=== PATIENT | female | born 1930 | race Caucasian/White ===

== ENCOUNTER 2016-08-06 09:53 | Inpatient (IN) | payer OTHER, MEDICARE ==
--- NOTE | 2016-08-06 09:58 | PDOC ---
History of Present Illness <NicolasaPerico - Last Filed: 08/06/16 12:43> - General History Source: Family Exam Limitations: Dementia - History of Present Illness Initial Comments: 08/06/16 10:31 The patient 86-year-old female living at home, with a significant past medical history of afib, peptic ulcer, gastritis, HTN, dementia, and seizures, who presents to the ED for agitation and increased violence towards her aide for the past three days. As per son, the patient has been really aggressive in the past few days. He has noted that her aggressiveness seems to worsen in the afternoon, but he reports that the patient woke up this morning and began to scream and slam doors threateninng to call the police. He reports that the patient recently visited her Neurologist who prescribd the patient depakote. He is in the process of placing his mother in the [facility]. He also reports that the patient has been experiencing mild diarrhea. Patient has two aides, one that visits her in the morning and one that watches her at night. Aide states that the patient is more agitated towards the second aide who visits her in the evening. She often complains that she does not want to live in her apartment because it is boring. Pt visits her family over the weekend and seems much more happier being around family than being at home. Pt's aide states that she has shown increased agitation for the past month. Pt usually has full control of her bowels. Aide states that she has noted that the pt has been urinating more than usual and her urine has a foul smell. The patient denies any fever, chills, nausea, vomiting, or abdominal pain. The patient denies any shortness of breath or chest pain. PCP: Dr. Juan Patten <Yin Parsons - Last Filed: 08/06/16 12:58> - General Stated Complaint: Altered Mental Status Time Seen by Provider: 08/06/16 09:56 Past History - Past Medical History Cardiac Disorders: Yes (A FIB) CVA: (TIA) GI Disorders: Yes (PEPTIC ULCER) HTN: Yes Hypercholesterolemia: Yes Psychiatric Problems: Yes (dementia) Seizures: Yes Thyroid Disease: Yes - Surgical History Cholecystectomy: Yes - Immunization History Immunization Up to Date: Yes - Psycho/Social/Smoking Cessation Hx Anxiety: No Suicidal Ideation: No Smoking Status: No Smoking History: Former smoker Have you smoked in the past 12 months: No Number of Cigarettes Smoked Daily: 0 If you are a former smoker, when did you quit?: 1975 Hx Alcohol Use: No Drug/Substance Use Hx: No Substance Use Type: None Hx Substance Use Treatment: No <NicolasaPerico - Last Filed: 08/06/16 12:43> <Yin Parsons - Last Filed: 08/06/16 12:58> - Past Medical History Allergies/Adverse Reactions: Allergies Allergy/AdvReac Type Severity Reaction Status Date / Time No Known Allergies Allergy Verified 08/06/16 09:55 Home Medications: Ambulatory Orders Amlodipine Besylate [Norvasc -] 10 mg PO DAILY 08/06/16 Apixaban [Eliquis] 2.5 mg PO BID 08/06/16 Atorvastatin Ca [Lipitor] 40 mg PO HS 08/06/16 Calcium Carb & Citrate/Vit D3 [Calcium + D3 ER Tablet] 1 each PO DAILY 08/06/16 Citalopram Hydrobromide [Celexa -] 40 mg PO DAILY 08/06/16 Divalproex Sodium [Depakote] 250 mg PO DAILY 08/06/16 Folic Acid 1 mg PO DAILY 08/06/16 Isosorbide Mononitrate [Imdur -] 30 mg PO DAILY 08/06/16 Levetiracetam 750 mg PO BID 08/06/16 Memantine HCl [Namenda Xr] 28 mg PO DAILY 08/06/16 Metoprolol Tartrate 50 mg PO DAILY 08/06/16 Pantoprazole Sodium 40 mg PO DAILY 08/06/16 Quetiapine Fumarate [Quetiapine Fumarate ER] 50 mg PO BID 08/06/16 Ramipril 10 mg PO DAILY 08/06/16 Rivastigmine Tartrate [Rivastigmine] 4.5 mg PO BID 08/06/16 Review of Systems - Review of Systems Able to Perform ROS?: Yes Comments:: 08/06/16 10:31 CONSTITUTIONAL: No reported: Fever, Chills, Diaphoresis, Generalized Weakness, Malaise, Loss of Appetite HEENT: No reported: Rhinorrhea, Nasal Congestion, Throat Pain, Throat Swelling, Difficulty Swallowing, Mouth Swelling, Ear Pain, Eye Pain, Visual Changes CARDIOVASCULAR: No reported: Chest Pain, Syncope, Palpitations, Irregular Heart Rate, Lightheadedness, Peripheral Edema RESPIRATORY: No reported: Cough, Shortness of Breath, SOB with Exertion, Orthopnea, Wheezing , Stridor, Hemoptysis GASTROINTESTINAL: Reported: Diarrhea No reported: Abdominal pain, Abdominal Distension, Nausea, Vomiting, Constipation, Melena, Hematochezia GENITOURINARY: No reported: Dysuria, Frequency, Urgency, Hesitancy, Flank Pain, Genital Pain MUSCULOSKELETAL: No reported: Myalgia, Arthralgia, Joint Swelling, Back pain, Neck Pain SKIN: No reported: Rash, Itching, Pallor HEMEATOLOGIC/IMMUNOLOGIC: No reported: Easy Bleeding, Easy Bruising, Lymphadenopathy, Frequent infections ENDOCRINE: No reported: Unexplained Weight Gain, Unexplained Weight Loss, Heat Intolerance , Cold Intolerance NEUROLOGIC: Reported: Mental Status Changes No reported: Headache, Focal Weakness, Paresthesias, Vertigo, Lightheadedness, Unsteady Gait, Seizure, Incontinence PSYCHIATRIC: No reported: Anxiety, Depression <Yin Parsons - Last Filed: 08/06/16 12:58> *Physical Exam - Vital Signs Last Vital Signs Temp Pulse Resp BP Pulse Ox 98.3 F 63 18 136/73 96 08/06/16 09:55 08/06/16 09:55 08/06/16 09:55 08/06/16 09:55 08/06/16 09:55 - Physical Exam Comments: 08/06/16 10:32 GENERAL: The patient is awake, alert, and oriented x 2, Nontoxic - in no acute distress. HEAD: Normocephalic, atraumatic. EYES: extraocular movements intact, sclera anicteric, conjunctiva clear. ENT: Normal voice, Moist mucous membranes. NECK: Normal range of motion, supple LUNGS: Breath sounds equal, clear to auscultation bilaterally. No wheezes, no rhonchi, no rales. HEART: Regular rate and rhythm, without murmur, rub or gallop. ABDOMEN: Soft, nontender, normoactive bowel sounds. No guarding, no rebound.No CVA tenderness EXTREMITIES: Normal range of motion. No clubbing or cyanosis. No cords, erythema, or tenderness. (+)Trace edema in the lower extremities. NEUROLOGICAL: No facial assymetry, Normal speech. moving all 4 extremities spontaneously and symemtrically, normal gait. PSYCH: Normal mood, normal affect. SKIN: Warm, Dry, normal turgor, <Yin Parsons - Last Filed: 08/06/16 12:58> Heart Score/ECG Review - ECG Impressions Comment:: 08/06/16 12:34 Twelve-lead EKG was performed and reviewed by me. There is normal sinus rhythm with a heart rate of 59 Right bundle-branch block Q waves in the inferior lead <Perico Baldwin - Last Filed: 08/06/16 12:43> ED Treatment Course - LABORATORY CBC & Chemistry Diagram: 08/06/16 10:10 08/06/16 10:10 <Perico Baldwin - Last Filed: 08/06/16 12:43> - LABORATORY CBC & Chemistry Diagram: 08/06/16 10:10 08/06/16 10:10 - ADDITIONAL ORDERS Additional order review: 08/06/16 10:10 RBC 4.48 MCV 89.2 MCHC 32.6 RDW 14.3 MPV 9.1 Neutrophils % 69.4 Lymphocytes % 19.2 Monocytes % 7.7 Eosinophils % 3.2 Basophils % 0.5 - RADIOLOGY Radiology Studies Ordered: 08/06/16 12:[address] was reviewed by Dr. Baldwin and over-read by Radiology. Impression: No evidence of acute intracranial hemorrhage, edema, midline shift, mass effect, or skull fracture. No CT evidence of acute territorial infarction. Chest X-Ray was reviewed by Dr. Baldwin and over-read by Radiology. Impression: Large heart. Scoliosis. No acute chest pathology. <Yin Parsons - Last Filed: 08/06/16 12:58> Medical Decision Making - Medical Decision Making 08/06/16 10:16 86y F hx of afib, CVA/TIAs, peptic ulcers, htn, hl, dementia, seizures, thydroid disease presents for evalutaion of behavioral disturbances - pt has been more agitated and violent recently, mostly at night, sometimes striking out at the [employer] home [employer]. The pt denies any complaints currently but history may be limited by her dementia. Her exam is unremarkable. Differential includes but is not limtied to worsening dementia/sundowning, occult infection/uti will ck basic labs to r/o anemia, metabolic dernagement, ua to r/o uti ct head for ams ekg case d/w dr. patten - requests amdission for evaluation of AMS - pt may need NH placement at disposition A portion of this note was documented by scribe services under my direction. I have reviewed the details of the note, within reason, and agree with the documentation with the following case summary and management plan written by me 08/06/16 11:31 labs reviewed and unremarkable US c/w uti awaiitng CT will admit for further mangaement Case discussed in detail with admitting physician including history, physical exam and ancillary studies. Admitting physician has assumed care for the patient, will follow all pending diagnostics and will complete the evaluation and treatment. 08/06/16 12:43 ct negative <Perico Baldwin - Last Filed: 08/06/16 12:43> *DC/Admit/Observation/Transfer - Discharge Dispostion Admit: Yes <Perico Baldwin - Last Filed: 08/06/16 12:43> - Attestations Scribe Attestion: 08/06/16 10:33 Documentation prepared by Yin Parsons, acting as medical investigator for Perico Baldwin MD. <Yin Parsons - Last Filed: 08/06/16 12:58> Diagnosis at time of Disposition: UTI (urinary tract infection) Qualifiers: Urinary tract infection type: site unspecified Hematuria presence: with hematuria Qualified Code(s): N39.0 - Urinary tract infection, site not specified Altered mental status Qualifiers: Altered mental status type: unspecified Qualified Code(s): R41.82 - Altered mental status, unspecified - Referrals
[2016-08-06 10:24] LABS: BASOPHIL 0.5 % (0-2.0); EOSINOPHIL 3.2 % (0-4.5); MCH 29.1 pg (25.7-33.7); MCHC 32.6 g/dl (32.0-36.0); MEAN CELL VOLUME 89.2 fl (80-96); MEAN PLT VOLUME 9.1 fl (7.5-11.1); NEUTROPHILS 69.4 % (42.8-82.8); PLATELET COUNT 228 K/MM3 (134-434); RDW 14.3 % (11.6-15.6); WHITE BLOOD COUNT 8.8 K/mm3 (4.0-10.0)
[2016-08-06 10:54] LABS: ALBUMIN 3.3 g/dl (3.4-5.0); ANION GAP 5 (8-16); BILIRUBIN,TOTAL 0.3 mg/dL (0.2-1.0); CALCIUM 8.7 mg/dL (8.5-10.1); CO2 30 mmol/L (21-32); CREATININE 0.8 mg/dL (0.55-1.02); GLUCOSE,RANDOM 104 mg/dL (74-106); SGOT/AST 20 U/L (15-37); SGPT/ALT 13 U/L (12-78); TOT PROT 6.7 g/dl (6.4-8.2)
[2016-08-06 10:55] LABS: URINE APPEARANCE SLCLOUDY; URINE BILIRUBIN NEGATIVE (NEGATIVE); URINE COLOR YELLOW; URINE GLUCOSE (UA) NEGATIVE (NEGATIVE); URINE KETONE TRACE (NEGATIVE); URINE NITRITE NEGATIVE (NEGATIVE); URINE UROBILINOGEN NEGATIVE E.U./dl (0.2-1.0)
[2016-08-06 10:56] LABS: ALK PHOS 81 U/L (45-117); TROPONIN I < 0.02 ng/ml (0.00-0.05)
[2016-08-06 11:02] LABS: URINE BLOOD 1+ (NEGATIVE); URINE LEUK ESTERASE 3+ (NEGATIVE); URINE PROTEIN 2+ (NEGATIVE)
[2016-08-06 11:06] LABS: URINE BACTERIA RARE /hpf (NONE SEEN); URINE MUCUS RARE; URINE RBC 20 /hpf (0-3); URINE WBC 150 /hpf (3-5); YEAST MODERATE
[2016-08-06] MEDS ORDERED: CEFTRIAXONE 1 GM in DEXTROSE 5%-WATER - 50 ML IVPB ONE (11:29)
[2016-08-06] MEDS ORDERED: CEFTRIAXONE 50 ML ONE (12:45)
--- NOTE | 2016-08-06 16:36 | EKG ---
Test Reason : Blood Pressure : / mmHG Vent. Rate : 059 BPM Atrial Rate : 059 BPM P-R Int : 198 ms QRS Dur : 154 ms QT Int : 454 ms P-R-T Axes : 048 009 018 degrees QTc Int : 449 ms SINUS BRADYCARDIA WITH MARKED SINUS ARRHYTHMIA RIGHT BUNDLE BRANCH BLOCK INFERIOR INFARCT , AGE UNDETERMINED ABNORMAL ECG WHEN COMPARED WITH ECG OF 17-SEP-2015 15:16, INFERIOR INFARCT IS NOW PRESENT QT HAS SHORTENED Confirmed by VICTORIANO KENYON, TATIANA ([id number]) on 08/06/2016 4:36:25 PM Referred By: Confirmed By:TATIANA PASTRANA MD
[2016-08-06 17:54] VITALS: BMI 28.3
[2016-08-06] MEDS ORDERED: INFLUENZA VACCINE 45 MCG/0.5 ML (MDV 16-17) IM ONE (17:54)
[2016-08-06] MEDS ORDERED: PNEUMOC 13-VAL CONJ-DIP CRM/PF 0.5 ML DISP.SYRIN IM ONE (17:54)
--- NOTE | 2016-08-06 18:55 | HP ---
Admitting History and Physical - Admission Chief Complaint: changes in mental status, confusion and aggression History of Present Illness: he patient 86-year-old female living at home, with a significant past medical history of afib, peptic ulcer, gastritis, HTN, dementia, and seizures, who was brought to the ED by pt's son Perfecto for agitation and increased violence towards her aide for the past three days. As per son, the patient has been really aggressive in the past few days. He has noted that her aggressiveness seems to worsen in the afternoon, but he reports that the patient woke up this morning and began to scream and slam doors threateninng to call the police. He reports that the patient recently visited her Neurologist who diagnosed her with dementia and prescribed the patient depakote. He is in the process of placing his mother in the [facility]. He also reports that the patient has been experiencing mild diarrhea. Patient has two aides, one that visits her in the morning and one that watches her at night. Aide states that the patient is more agitated towards the second aide who visits her in the evening. She often complains that she does not want to live in her apartment because it is boring. Pt visits her family over the weekend and seems much more happier being around family than being at home. Pt's aide states that she has shown increased agitation for the past month. Pt usually has full control of her bowels. Aide states that she has noted that the pt has been urinating more than usual and her urine has a foul smell. When pt was asked if anything is bothering her she said no, she denied any c/o and does not know why she is in the ER. She knows her and that this is [facility] but does not remember what she did or ate yesterday or today. The patient denies any fever, chills, nausea, vomiting, or abdominal pain. The patient denies any shortness of breath or chest pain. I d/w pt's son Perfecto at bedside in ER and he said that Pt is from her and he lives in a NH and also has dementia. Pt has 4 children and pt does not have a HCP however Perfecto (the son) has POA. He said he spoke with all his siblings and all are in agreement to place pt in a NH. Pt lives in her apartment but her son and 1 daughter are close and helping her; she also has currently a line-in aid (24H/day 7d/week) per son. 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: Yes: CVA, Dementia Cardiovascular: Yes: AFIB, HTN, Hyperlipdemia Gastrointestinal: Yes: Peptic Ulcer Disease Endocrine: Yes: Hypothyroidism - Past Surgical History Past Surgical History: Yes: Cholecystectomy - Smoking History Smoking history: Former smoker Have you smoked in the past 12 months: No Aproximately how many cigarettes per day: 0 If you are a former smoker, when did you quit?: 1975 - Alcohol/Substance Use Hx Alcohol Use: No History of Substance Use: reports: None - Social History Usual Living Arrangement: Yes: Alone ADL: Support Services History of Recent Travel: No Home Medications - Allergies Allergies/Adverse Reactions: Allergies Allergy/AdvReac Type Severity Reaction Status Date / Time No Known Allergies Allergy Verified 08/06/16 09:55 - Home Medications Home Medications: Ambulatory Orders Amlodipine Besylate [Norvasc -] 10 mg PO DAILY 08/06/16 Apixaban [Eliquis] 2.5 mg PO BID 08/06/16 Atorvastatin Ca [Lipitor] 40 mg PO HS 08/06/16 Calcium Carb, Citrate/Vit D3 [Calcium + D3 ER Tablet] 1 each PO DAILY 08/06/16 Citalopram Hydrobromide [Celexa -] 40 mg PO DAILY 08/06/16 Divalproex Sodium [Depakote] 250 mg PO DAILY 08/06/16 Folic Acid 1 mg PO DAILY 08/06/16 Isosorbide Mononitrate [Imdur -] 30 mg PO DAILY 08/06/16 Levetiracetam 750 mg PO BID 08/06/16 Memantine HCl [Namenda Xr] 28 mg PO DAILY 08/06/16 Metoprolol Tartrate 50 mg PO DAILY 08/06/16 Pantoprazole Sodium 40 mg PO DAILY 08/06/16 Quetiapine Fumarate [Quetiapine Fumarate ER] 50 mg PO BID 08/06/16 Ramipril 10 mg PO DAILY 08/06/16 Rivastigmine Tartrate [Rivastigmine] 4.5 mg PO BID 08/06/16 Family Disease History - Family Disease History Family History: Unremarkable Review of Systems - Review of Systems Constitutional: denies: Chills, Fever, Lethargy Eyes: denies: Blind Spots, Blurred Vision, Double Vision HENT: denies: Ear Pain Neck: denies: Stiffness, Tenderness Cardiovascular: denies: Chest Pain, Shortness of Breath Respiratory: denies: Cough, SOB Gastrointestinal: denies: Abdominal Pain, Bloating, Constipation, Diarrhea, Vomiting Genitourinary: denies: Burning, Discharge, Dysuria, Flank Pain, Frequency Musculoskeletal: denies: Back Pain, Muscle Pain Integumentary: denies: Bruising, Eczema Neurological: reports: Confusion. denies: Change in Speech, Dizziness, Seizure , Syncope, Tremors, Unsteady Gait Endocrine: denies: Flushing Hematology/Lymphatic: denies: Easily Bruised, Excessive Bleeding Psychiatric: denies: Anxiety, Depression Physical Examination Vital Signs: Vital Signs Temperature 98 F 08/06/16 17:39 Pulse Rate 62 08/06/16 17:39 Respiratory Rate 18 08/06/16 17:39 Blood Pressure 154/75 08/06/16 17:39 O2 Sat by Pulse Oximetry (%) 96 08/06/16 18:32 Constitutional: Yes: No Distress, Calm Eyes: Yes: Conjunctiva Clear HENT: Yes: Atraumatic Neck: Yes: Supple Cardiovascular: Yes: Regular Rate and Rhythm Respiratory: Yes: CTA Bilaterally Gastrointestinal: Yes: Soft. No: Distention, Tenderness Renal/: No: CVA Tenderness - Left, CVA Tenderness - Right Musculoskeletal: No: Joint Stiffness, Joint Swelling Extremities: No: Cold, Cool, Cyanosis Edema: No Peripheral Pulses WNL: Yes Integumentary: No: Rash, Venous Stasis Changes Neurological: Yes: WNL, Alert, Confusion. No: Oriented ...Motor Strength: WNL Psychiatric: Yes: WNL, Alert. No: Oriented, Agitated Imaging - Results Chest X-ray: Report Reviewed Other: Report Reviewed Assessment/Plan he patient 86-year-old female living at home, with a significant past medical history of afib, peptic ulcer, gastritis, HTN, dementia, and seizures, who presents to the ED for agitation and increased violence towards her aide for the past three days. Per son pt has changes in mental status, more confused than usual and aggressive behaviour. Found to have UTI in ER admit; IV ATB for UTI check UCX neurology eval head CT d/w pt and son, d/w ER dr osorio, DVT, aspiration PFX will d/w case management, CM and PT eval for eventual NH placement.
[2016-08-06] MEDS ORDERED: PATIENT'S OWN MEDICATION (NON-FORMULARY) (Levetiracetam [Levetiracetam] 750 MG) PO SCH (22:00)
[2016-08-06] MEDS ORDERED: RIVASTIGMINE TARTRATE 4.5 MG PO SCH (22:00)
[2016-08-06] MEDS: APIXABAN 2.5 MG TABLET PO SCH (22:41)
[2016-08-06] MEDS: RIVASTIGMINE TARTRATE 1.5 MG CAPSULE PO SCH (22:42)
[2016-08-06] MEDS: HEPARIN NA (PORCINE) 5,000 UNITS/ML 1ML VIAL SQ SCH (22:43)
[2016-08-06] MEDS: ATORVASTATIN CA 40 MG TABLET (FP) PO SCH (22:44)
[2016-08-06] MEDS: levETIRAcetam 500 MG TABLET (FP) PO SCH (22:44)
[2016-08-07 08:31] LABS: ALK PHOS 76 U/L (45-117); ANION GAP 4 (8-16); BILIRUBIN,TOTAL 0.4 mg/dL (0.2-1.0); CALCIUM 8.5 mg/dL (8.5-10.1); CO2 29 mmol/L (21-32); CREATININE 0.7 mg/dL (0.55-1.02); GLUCOSE,RANDOM 76 mg/dL (74-106); SGOT/AST 16 U/L (15-37); SGPT/ALT 15 U/L (12-78); THYROID STIMULATING HORMONE 3.86 uIU/ml (0.358-3.74); TOT PROT 6.1 g/dl (6.4-8.2)
[2016-08-07 08:42] LABS: BASOPHIL 0.7 % (0-2.0); EOSINOPHIL 4.2 % (0-4.5); MCH 28.8 pg (25.7-33.7); MCHC 32.5 g/dl (32.0-36.0); MEAN CELL VOLUME 88.7 fl (80-96); MEAN PLT VOLUME 9.6 fl (7.5-11.1); NEUTROPHILS 56.4 % (42.8-82.8); PLATELET COUNT 197 K/MM3 (134-434); RDW 14.2 % (11.6-15.6); WHITE BLOOD COUNT 7.7 K/mm3 (4.0-10.0)
[2016-08-07] MEDS ORDERED: CALCIUM 1200 MG PO SCH (10:00)
[2016-08-07] MEDS ORDERED: PATIENT'S OWN MEDICATION (NON-FORMULARY) (Ramipril [Ramipril] 10 MG) PO SCH (10:00)
[2016-08-07] MEDS ORDERED: PATIENT'S OWN MEDICATION (NON-FORMULARY) (Citalopram Hydrobromide [Celexa -] 40 MG) PO SCH (10:00)
[2016-08-07] MEDS ORDERED: VIT D PO SCH (10:00)
[2016-08-07] MEDS ORDERED: PT OWN MED DRAWER 7, Y5N ONE ×2 (10:39→21:18)
[2016-08-07] MEDS: levETIRAcetam 500 MG TABLET (FP) PO SCH ×2 (10:41→21:44)
[2016-08-07] MEDS: amLODIPine BESYLATE 10 MG TABLET (FP) PO SCH (10:43)
[2016-08-07] MEDS: METOPROLOL TARTRATE 50 MG TABLET (FP) PO SCH (10:43)
[2016-08-07] MEDS: RAMIPRIL 5 MG CAPSULE (FP) PO SCH (10:43)
[2016-08-07] MEDS: PANTOPRAZOLE 40 MG TABLET (FP) PO SCH (10:43)
[2016-08-07] MEDS: FOLIC ACID 1 MG TABLET (FP) PO SCH (10:44)
[2016-08-07] MEDS: HEPARIN NA (PORCINE) 5,000 UNITS/ML 1ML VIAL SQ SCH ×2 (10:44→21:51)
[2016-08-07] MEDS: ISOSORBIDE MONONITRATE 30 MG TAB.SR.24H (FP) PO SCH (10:44)
[2016-08-07] MEDS: CITALOPRAM HYDROBROMIDE 20 MG TABLET (FP) PO SCH (10:44)
[2016-08-07] MEDS: RIVASTIGMINE TARTRATE 1.5 MG CAPSULE PO SCH ×2 (10:45→21:47)
[2016-08-07] MEDS: APIXABAN 2.5 MG TABLET PO SCH ×2 (10:45→21:45)
[2016-08-07] MEDS: DIVALPROEX SODIUM 250 MG TABLET E.C. (FP) PO SCH (10:46)
[2016-08-07] MEDS: CEFTRIAXONE 50 ML IVPB SCH (10:47)
--- NOTE | 2016-08-07 12:28 | PN ---
Progress Note, Physician Chief Complaint: in bed feels better less confusion MEDICAL ASSISTING INSTRUCTOR at bedside, d/w neuro will see her today ; d/w CM about NH placement; d/w Palliatice Care Yeimi about pt's case, ex- with dementia in NH; pt not able to make decisions has 4 children but no HCP; son Perfecto closest to her helping her at home and POA; no need to meet with all 4 children, NH placement needed as safest DC planning for the pt; has MEDICAL ASSISTING INSTRUCTOR 24H/d 7d/w but NH might be needed to better care for pt's needs at this point. - Current Medication List Current Medications: Active Medications Amlodipine Besylate (Norvasc -) 10 mg PO DAILY [facility] Last Admin: 08/07/16 10:43 Dose: 10 mg Apixaban (Eliquis -) 2.5 mg PO BID [facility] Last Admin: 08/07/16 10:45 Dose: 2.5 mg Atorvastatin Calcium (Lipitor -) 40 mg PO HS [facility] Last Admin: 08/06/16 22:44 Dose: 40 mg Citalopram Hydrobromide (Celexa -) 40 mg PO DAILY [facility] Last Admin: 08/07/16 10:44 Dose: 40 mg Divalproex Sodium (Depakote -) 250 mg PO DAILY [facility] Last Admin: 08/07/16 10:46 Dose: 250 mg Folic Acid (Folic Acid -) 1 mg PO DAILY [facility] Last Admin: 08/07/16 10:44 Dose: 1 mg Heparin Sodium (Porcine) (Heparin -) 5,000 unit SQ BID [facility] Last Admin: 08/07/16 10:44 Dose: 5,000 unit Ceftriaxone Sodium (Rocephin 1gm Ivpb (Pre-Docked)) 50 mls @ 100 mls/hr IVPB DAILY [facility] Last Admin: 08/07/16 10:47 Dose: 100 mls/hr Isosorbide Mononitrate (Imdur -) 30 mg PO DAILY [facility] Last Admin: 08/07/16 10:44 Dose: 30 mg Levetiracetam (Keppra -) 750 mg PO BID [facility] Last Admin: 08/07/16 10:41 Dose: 750 mg Metoprolol Tartrate (Lopressor -) 50 mg PO DAILY [facility] Last Admin: 08/07/16 10:43 Dose: 50 mg Non-Formulary Medication (Calcium Carb, Citrate/Vit D3 [Calcium + D3 Er Tablet] ) 1 each PO DAILY [facility] Non-Formulary Medication (Memantine Hcl [Namenda Xr]) 28 mg PO DAILY [facility] Pantoprazole Sodium (Protonix -) 40 mg PO DAILY [facility] Last Admin: 08/07/16 10:43 Dose: 40 mg Quetiapine Fumarate (Seroquel Xr -) 50 mg PO BID [facility] Last Admin: 08/07/16 10:47 Dose: 50 mg Ramipril (Altace -) 10 mg PO DAILY [facility] Last Admin: 08/07/16 10:43 Dose: 10 mg Rivastigmine Tartrate (Exelon (Nf) -) 4.5 mg PO BID [facility] Last Admin: 08/07/16 10:45 Dose: 4.5 mg - Objective Vital Signs: Vital Signs Temperature 98.8 F 08/07/16 10:31 Pulse Rate 61 08/07/16 10:31 Respiratory Rate 20 08/07/16 10:31 Blood Pressure 134/62 08/07/16 10:31 O2 Sat by Pulse Oximetry (%) 95 08/06/16 21:00 Constitutional: Yes: No Distress, Calm Eyes: Yes: Conjunctiva Clear HENT: Yes: Atraumatic Neck: Yes: Supple Cardiovascular: Yes: Regular Rate and Rhythm Respiratory: Yes: CTA Bilaterally Gastrointestinal: Yes: Soft. No: Distention, Tenderness Genitourinary: No: CVA Tenderness - Left, CVA Tenderness - Right Musculoskeletal: No: Joint Stiffness, Joint Swelling Extremities: No: Cold, Cool Edema: No Peripheral Pulses WNL: Yes Integumentary: No: Rash, Venous Stasis Changes Neurological: Yes: WNL, Alert. No: Oriented ...Motor Strength: WNL Psychiatric: Yes: WNL, Alert. No: Oriented, Agitated, Suicidal Ideation Labs: CBC, BMP 08/07/16 06:00 08/07/16 06:00 - ....Imaging Other: Report Reviewed Assessment/Plan he patient 86-year-old female living at home, with a significant past medical history of afib, peptic ulcer, gastritis, HTN, dementia, and seizures, who presents to the ED for agitation and increased violence towards her aide for the past three days. Per son pt has changes in mental status, more confused than usual and aggressive behaviour. Found to have UTI in ER admit; IV ATB for UTI check UCX neurology eval head CT d/w pt and staff falls, DVT, aspiration PFX will d/w case management, CM and PT eval for eventual NH placement.
--- NOTE | 2016-08-07 15:09 | CONS ---
DATE OF CONSULTATION: 08/07/2016 TIME OF CONSULTATION: 1:00 p.m. REQUESTING PHYSICIAN: Consultation requested by Dr. Francy Pa. CARDIOLOGY CONSULTATION CHIEF COMPLAINT: Progressive mental confusion and agitation. HISTORY OF PRESENT ILLNESS: The patient is an 86-year-old white female history of dementia, hypertension, history of paroxysmal atrial fibrillation, seizure disorder, hypercholesterolemia, peptic ulcer disease as noted in the ER note. History was obtained from a caregiver and also from the medical records. According to the caregiver, patient became progressively agitated and combative and was brought to the emergency room where she was diagnosed to have a urinary tract infection. There is no known history of chest pain or discomfort, no history of recent seizures or syncope. No history of palpitations. No history of dyspnea either at rest or with exertion. PAST HISTORY: As mentioned in the history of present illness. SURGICAL HISTORY: Status post cholecystectomy as noted in the records. FAMILY HISTORY: Is not available. SOCIAL HISTORY: Reveals that patient was a previous smoker. No other history is available or documented. ALLERGIES: None recorded. CURRENT MEDICATIONS ARE FOLLOWS: 1. Calcium carbonate and vitamin D 1 p.o. daily. 2. Namenda 28 mg p.o. daily. 3. Ramipril 10 mg p.o. daily. 4. Rocephin 1 g daily IV. 5. Eliquis 2.5 mg b.i.d. 6. Heparin 5000 units subcutaneously b.i.d. 7. Depakote 250 mg p.o. daily. 8. Keppra 750 mg p.o. b.i.d. 9. Celexa 40 mg p.o. daily. 10. Seroquel 50 mg p.o. b.i.d. 11. Lopressor 15 mg p.o. daily. 12. Amlodipine 10 mg p.o. daily. 13. Atorvastatin 40 mg p.o. daily. 14. Protonix 40 mg p.o. daily. 15. Isosorbide mononitrate 30 mg p.o. daily. 16. Folic acid 1 mg p.o. daily. REVIEW OF SYSTEMS: Constitutional: See history of present illness. No history of chills, fever, or night sweats reported. No known history of weight loss. HEENT: No known history of headaches, diplopia, or blurred vision. No history of epistaxis, hoarseness, tinnitus, or deafness recorded. Cardiovascular system: See history of present illness. Respiratory system: No known history of cough expectoration or hemoptysis. Gastrointestinal system: History of peptic ulcer disease as documented in the chart. Duration uncertain. No nausea, vomiting, melena, or hematemesis documented. Neurological system: See history of present illness. Musculoskeletal system: No history of myalgias or arthralgias reported. Endocrine: No known history of diabetes mellitus. No history of intolerance to cold or warm weather according to the caregiver. PHYSICAL EXAMINATION: General: This 86-year-old female who is confused both in time and space, yet she was not agitated. Vital signs: Blood pressure 134/62 mmHg. Pulse 61 beats per minute and regular. Temperature 98.8 degrees Fahrenheit. Respirations 20 per minute. Weight was not recorded. Neck: Supple, no jugular venous distention, carotids were equal and upstrokes were normal, no bruits were heard and no thyromegaly was appreciated. Heart: PMI was in the 5th intercostal space, no heaves or thrills, S1 and S2 were normal, no murmur or gallops were heard. Lungs: Clear on auscultation. Abdomen: Soft, protuberant, and nontender. No hepatosplenomegaly or palpable masses were felt. Extremities: No calf tenderness or dependent edema. LABORATORY DATA: Urinalysis revealed 2+ protein. There was 1+ blood, 3+ leukocyte esterase. ECG: Atrial fibrillation with moderate ventricular response, permanent pacemaker was seen sensing and pacing appropriately. Nonpaced beats revealed diffuse ST segment abnormalities. On August 07, 2016, sodium 143, potassium 3.5, chloride 110, CO2 at 29 mmo/L, BUN 20, creatinine 0.7 mg/dL, random glucose 76 mg/dL. Normal liver function test. Troponin less than 0.02. TSH 3.86, which was elevated. Vitamin B12 was 1147 pg/mL. WBC count 7700, hemoglobin 12.1 g/dL, platelet count 197,000, normal differential. X-ray chest impression: Large heart, scoliosis. No acute chest pathology. ECG dated August 06, 2016, showed sinus rhythm with occasional supraventricular premature beats which were single, non-diagnostic Q-waves at 3 and aVF. Baseline artifacts were recorded. Non-specific ST-segment abnormalities. IMPRESSION: 1. History of paroxysmal atrial fibrillation, currently in sinus rhythm. 2. Supraventricular premature beats. 3. Hypertension, hypertensive cardiovascular disease. 4. History of dementia with recent agitation, probably related to a urinary tract infection. 5. History of cerebrovascular accident. 6. Hypercholesterolemia. 7. Right bundle branch block. 8. History of seizure disorder. 9. History of urinary tract infection. RECOMMENDATIONS: 1. Concur with current line of antihypertensive therapy. 2. Avoid concurrent use of heparin and Eliquis, and patient needs to be reevaluated for long-term use of Eliquis in view of her medical status. 3. Increase ambulation. 4. Follow up ECG and enzymes. Thank you for your referral. Yours sincerely, MIKAYLA ROB M.D. [id number]
--- NOTE | 2016-08-07 19:11 | CONSULT ---
Consult Consult Specialty:: Neurology - History of Present Illness History of Present Illness: 86 yo previously diagnosed with dementia has progressively become more agitated and confused at home. 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, Dementia Cardio/Vascular: Yes: AFIB, HTN, Hyperlipdemia Gastrointestinal: Yes: Peptic Ulcer Disease Endocrine: Yes: Hypothyroidism - Past Surgical History Past Surgical History: Yes: Cholecystectomy - Alcohol/Substance Use Hx Alcohol Use: No History of Substance Use: reports: None - Smoking History Smoking history: Former smoker Have you smoked in the past 12 months: No Aproximately how many cigarettes per day: 0 If you are a former smoker, when did you quit?: 1975 - Social History ADL: Support Services History of Recent Travel: No Home Medications - Allergies Allergies/Adverse Reactions: Allergies Allergy/AdvReac Type Severity Reaction Status Date / Time No Known Allergies Allergy Verified 08/06/16 09:55 - Home Medications Home Medications: Ambulatory Orders Amlodipine Besylate [Norvasc -] 10 mg PO DAILY 08/06/16 Apixaban [Eliquis] 2.5 mg PO BID 08/06/16 Atorvastatin Ca [Lipitor] 40 mg PO HS 08/06/16 Calcium Carb, Citrate/Vit D3 [Calcium + D3 ER Tablet] 1 each PO DAILY 08/06/16 Citalopram Hydrobromide [Celexa -] 40 mg PO DAILY 08/06/16 Divalproex Sodium [Depakote] 250 mg PO DAILY 08/06/16 Folic Acid 1 mg PO DAILY 08/06/16 Isosorbide Mononitrate [Imdur -] 30 mg PO DAILY 08/06/16 Levetiracetam 750 mg PO BID 08/06/16 Memantine HCl [Namenda Xr] 28 mg PO DAILY 08/06/16 Metoprolol Tartrate 50 mg PO DAILY 08/06/16 Pantoprazole Sodium 40 mg PO DAILY 08/06/16 Quetiapine Fumarate [Quetiapine Fumarate ER] 50 mg PO BID 08/06/16 Ramipril 10 mg PO DAILY 08/06/16 Rivastigmine Tartrate [Rivastigmine] 4.5 mg PO BID 08/06/16 Physical Exam Vital Signs: Vital Signs Temperature 98.8 F 08/07/16 10:31 Pulse Rate 61 08/07/16 10:31 Respiratory Rate 20 08/07/16 10:31 Blood Pressure 134/62 08/07/16 10:31 O2 Sat by Pulse Oximetry (%) 93 L 08/07/16 11:00 Constitutional: Yes: Well Nourished, Calm HENT: Yes: Atraumatic Neck: Yes: Supple Cardiovascular: Yes: Pulse Irregular Respiratory: Yes: Regular Gastrointestinal: Yes: Soft Neurological: Yes: Alert, Oriented, Confusion, Cran Nerves II-XII Intact, Dysarthria. No: Aphasia, Loss of Sensation, Weakness Labs: CBC, BMP 08/07/16 06:00 08/07/16 06:00 Assessment/Plan Acute progression of Dementia with increasing behavioral problems associated with agitation and neg head CT No indication for additional neurological testing at this time. Suggest Social service consult for supervised living accommodations once complicated medical illnesses have been excluded as the etiology for the acute delirium If agitation continues with no evidence of a metabolic disturbance, then a small dose of Seroquel at night may be helpful however would defer the patient' s primary neurologist or current outpatient treating physician for extermination inspector management of the Dementia.
[2016-08-07] MEDS: ATORVASTATIN CA 40 MG TABLET (FP) PO SCH (21:46)
[2016-08-08 10:13] LABS: FREE T4 1.01 ng/dl (0.76-1.46); THYROID STIMULATING HORMONE 3.14 uIU/ml (0.358-3.74)
[2016-08-08] MEDS: HEPARIN NA (PORCINE) 5,000 UNITS/ML 1ML VIAL SQ SCH (10:56)
[2016-08-08] MEDS: PANTOPRAZOLE 40 MG TABLET (FP) PO SCH (10:57)
[2016-08-08] MEDS: RAMIPRIL 5 MG CAPSULE (FP) PO SCH (10:57)
[2016-08-08] MEDS: levETIRAcetam 500 MG TABLET (FP) PO SCH ×2 (10:57→22:35)
[2016-08-08] MEDS: amLODIPine BESYLATE 10 MG TABLET (FP) PO SCH (10:58)
[2016-08-08] MEDS: CITALOPRAM HYDROBROMIDE 20 MG TABLET (FP) PO SCH (10:58)
[2016-08-08] MEDS: METOPROLOL TARTRATE 50 MG TABLET (FP) PO SCH (10:58)
[2016-08-08] MEDS: FOLIC ACID 1 MG TABLET (FP) PO SCH (10:58)
[2016-08-08] MEDS: ISOSORBIDE MONONITRATE 30 MG TAB.SR.24H (FP) PO SCH (10:58)
[2016-08-08] MEDS: CEFTRIAXONE 50 ML IVPB SCH (10:58)
[2016-08-08] MEDS: RIVASTIGMINE TARTRATE 1.5 MG CAPSULE PO SCH ×2 (10:59→22:34)
[2016-08-08] MEDS: APIXABAN 2.5 MG TABLET PO SCH ×2 (11:00→22:34)
[2016-08-08] MEDS: NAMENDA 28 MG PO SCH (11:02)
[2016-08-08] MEDS: CALCIUM 1200 MG PO SCH (11:03)
[2016-08-08] MEDS: VIT D PO SCH (11:03)
--- NOTE | 2016-08-08 13:06 | PN ---
Progress Note (short form) - Note Progress Note: Chief Complaint: Events noted, notes reviewed, remains confused, disoriented and agitated, progressive neurological deterioration, denies any chest pain or dyspnea History of Present Illness: Seen and examined on . Events noted notes reviewed, remains confused, disoriented and agitated, progressive neurological deterioration, denies any chest pain or dyspnea Medications: Current Medications Amlodipine Besylate (Norvasc -) 10 mg PO DAILY [facility] Last Admin: 08/08/16 10:58 Dose: 10 mg Apixaban (Eliquis -) 2.5 mg PO BID [facility] Last Admin: 08/08/16 11:00 Dose: 2.5 mg Atorvastatin Calcium (Lipitor -) 40 mg PO HS [facility] Last Admin: 08/07/16 21:46 Dose: 40 mg Citalopram Hydrobromide (Celexa -) 40 mg PO DAILY [facility] Last Admin: 08/08/16 10:58 Dose: 40 mg Divalproex Sodium (Depakote -) 250 mg PO DAILY [facility] Last Admin: 08/07/16 10:46 Dose: 250 mg Folic Acid (Folic Acid -) 1 mg PO DAILY [facility] Last Admin: 08/08/16 10:58 Dose: 1 mg Heparin Sodium (Porcine) (Heparin -) 5,000 unit SQ BID [facility] Last Admin: 08/08/16 10:56 Dose: 5,000 unit Ceftriaxone Sodium (Rocephin 1gm Ivpb (Pre-Docked)) 50 mls @ 100 mls/hr IVPB DAILY [facility] Last Admin: 08/08/16 10:58 Dose: 100 mls/hr Isosorbide Mononitrate (Imdur -) 30 mg PO DAILY [facility] Last Admin: 08/08/16 10:58 Dose: 30 mg Levetiracetam (Keppra -) 750 mg PO BID [facility] Last Admin: 08/08/16 10:57 Dose: 750 mg Metoprolol Tartrate (Lopressor -) 50 mg PO DAILY [facility] Last Admin: 08/08/16 10:58 Dose: 50 mg Namenda Xr 28 Mg Capsule - Patient Own Med 28 mg PO DAILY [facility] Last Admin: 08/08/16 11:02 Dose: 28 mg Calcium 1200 Mg + Vit D 1000 Iu Cap - Patient Own Med 1 each PO DAILY [facility] Last Admin: 08/08/16 11:03 Dose: 1 each Pantoprazole Sodium (Protonix -) 40 mg PO DAILY [facility] Last Admin: 08/08/16 10:57 Dose: 40 mg Quetiapine Fumarate (Seroquel Xr -) 50 mg PO BID [facility] Last Admin: 08/08/16 11:01 Dose: 50 mg Ramipril (Altace -) 10 mg PO DAILY [facility] Last Admin: 08/08/16 10:57 Dose: 10 mg Rivastigmine Tartrate (Exelon (Nf) -) 4.5 mg PO BID [facility] Last Admin: 08/08/16 10:59 Dose: 4.5 mg Review of Systems - Review of Systems Constitutional: No symptoms reported Respiratory: denies: Cough or Sputum Production Cardiovascular: As noted above Gastrointestinal: denies Nausea, Vomiting, Diarrhea, Constipation or Abdominal Pain Genitourinary: No symptoms reported Musculoskeletal: Degenerative Joint Disease Endocrine: No symptoms reported Vital Signs: Last Vital Signs Temp Pulse Resp BP Pulse Ox 98.1 F 62 20 131/56 95 08/08/16 06:00 08/08/16 06:00 08/08/16 06:00 08/08/16 06:00 08/07/16 21:00 Constitutional: No Distress Neck: Supple Negative JVD No Bruit Respiratory: Clear to A&P Bilaterally Cardiovascular: S1 S2 Irregularly Irregular Garde 1-2/6 NAVDEEP Gastrointestinal: Soft Benign Normal Bowel Sounds Ext: Negative Edema Labs: CBC, BMP 08/07/16 06:00 08/07/16 06:00 Assessment/Plan ASSESSMENT: 1. 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 Paroxysmal atrial fibrillation [id number] score of 6 on chronic A/C with NOAC's 5. HTN 6. Hypercholesterolemia 7. History of CVA 8. Hypothyroidism 9. UTI, uro-sepsis PLAN: 1. Continue P-Aepwoggf-Ufuknvnoa change to Toprol XL 2. Continue Norvasc 3. Continue Altace 4. Continue Imdur 5. Continue Lipitor 6. Continue Eliquis considering the above noted [id number] score of 6, unless it is absolutely contraindicated 7. D/C SQ Heparin since patient is fully A/C with Eliquis 8. Antibiotics as per the primary team Obi Broussard M.D.
[2016-08-08] MEDS: QUEtiapine FUMARATE 25 MG TABLET (FP) PO PRN (16:01)
[2016-08-08] MEDS: DIVALPROEX SODIUM 250 MG TABLET E.C. (FP) PO SCH (16:04)
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
--- NOTE | 2016-08-08 17:03 | PN ---
Progress Note, Physician History of Present Illness: 86 yo previously diagnosed with dementia has progressively become more agitated and confused at home and now wants to go home and has no insight. nurse given Serdanielito order for prn but pt has not received it. Family dropped off patient has hospital because they could not care for her at home. - Current Medication List Current Medications: Active Medications Amlodipine Besylate (Norvasc -) 10 mg PO DAILY [facility] Last Admin: 08/08/16 10:58 Dose: 10 mg Apixaban (Eliquis -) 2.5 mg PO BID [facility] Last Admin: 08/08/16 11:00 Dose: 2.5 mg Atorvastatin Calcium (Lipitor -) 40 mg PO HS [facility] Last Admin: 08/07/16 21:46 Dose: 40 mg Citalopram Hydrobromide (Celexa -) 40 mg PO DAILY [facility] Last Admin: 08/08/16 10:58 Dose: 40 mg Divalproex Sodium (Depakote -) 250 mg PO DAILY [facility] Last Admin: 08/08/16 16:04 Dose: 250 mg Folic Acid (Folic Acid -) 1 mg PO DAILY [facility] Last Admin: 08/08/16 10:58 Dose: 1 mg Ceftriaxone Sodium (Rocephin 1gm Ivpb (Pre-Docked)) 50 mls @ 100 mls/hr IVPB DAILY [facility] Last Admin: 08/08/16 10:58 Dose: 100 mls/hr Isosorbide Mononitrate (Imdur -) 30 mg PO DAILY [facility] Last Admin: 08/08/16 10:58 Dose: 30 mg Levetiracetam (Keppra -) 750 mg PO BID [facility] Last Admin: 08/08/16 10:57 Dose: 750 mg Metoprolol Tartrate (Lopressor -) 50 mg PO DAILY [facility] Last Admin: 08/08/16 10:58 Dose: 50 mg Namenda Xr 28 Mg Capsule - Patient Own Med 28 mg PO DAILY [facility] Last Admin: 08/08/16 11:02 Dose: 28 mg Calcium 1200 Mg + Vit D 1000 Iu Cap - Patient Own Med 1 each PO DAILY [facility] Last Admin: 08/08/16 11:03 Dose: 1 each Pantoprazole Sodium (Protonix -) 40 mg PO DAILY [facility] Last Admin: 08/08/16 10:57 Dose: 40 mg Quetiapine Fumarate (Seroquel Xr -) 50 mg PO BID [facility] Last Admin: 08/08/16 11:01 Dose: 50 mg Quetiapine Fumarate (Seroquel -) 25 mg PO Q4H PRN PRN Reason: AGITATION Last Admin: 08/08/16 16:01 Dose: 25 mg Ramipril (Altace -) 10 mg PO DAILY [facility] Last Admin: 08/08/16 10:57 Dose: 10 mg Rivastigmine Tartrate (Exelon (Nf) -) 4.5 mg PO BID [facility] Last Admin: 08/08/16 10:59 Dose: 4.5 mg - Objective Vital Signs: Vital Signs Temperature 98.4 F 08/08/16 14:43 Pulse Rate 64 08/08/16 14:43 Respiratory Rate 20 08/08/16 14:43 Blood Pressure 113/50 08/08/16 14:43 O2 Sat by Pulse Oximetry (%) 95 08/08/16 09:00 Neurological: Yes: Alert, Confusion (buy easily redirected.). No: Oriented, Facial Droop, Weakness Labs: CBC, BMP 08/07/16 06:00 08/07/16 06:00 Assessment/Plan Dementia with agitation over wanting to go home Social service needs to address placement issues with the family and patient Seroquel 25 prn agitation
[2016-08-08] MEDS: ATORVASTATIN CA 40 MG TABLET (FP) PO SCH (22:35)
[2016-08-09] MEDS: QUEtiapine FUMARATE 25 MG TABLET (FP) PO PRN (06:39)
[2016-08-09] MEDS: ISOSORBIDE MONONITRATE 30 MG TAB.SR.24H (FP) PO SCH (10:29)
[2016-08-09] MEDS: PANTOPRAZOLE 40 MG TABLET (FP) PO SCH (10:29)
[2016-08-09] MEDS: CITALOPRAM HYDROBROMIDE 20 MG TABLET (FP) PO SCH (10:29)
[2016-08-09] MEDS: levETIRAcetam 500 MG TABLET (FP) PO SCH ×2 (10:29→22:34)
[2016-08-09] MEDS: RAMIPRIL 5 MG CAPSULE (FP) PO SCH (10:30)
[2016-08-09] MEDS: amLODIPine BESYLATE 10 MG TABLET (FP) PO SCH (10:30)
[2016-08-09] MEDS: NAMENDA 28 MG PO SCH (10:31)
[2016-08-09] MEDS: METOPROLOL TARTRATE 50 MG TABLET (FP) PO SCH (10:31)
[2016-08-09] MEDS: FOLIC ACID 1 MG TABLET (FP) PO SCH (10:31)
[2016-08-09] MEDS: RIVASTIGMINE TARTRATE 1.5 MG CAPSULE PO SCH ×2 (10:32→22:34)
[2016-08-09] MEDS: APIXABAN 2.5 MG TABLET PO SCH (10:33)
[2016-08-09] MEDS: DIVALPROEX SODIUM 250 MG TABLET E.C. (FP) PO SCH (10:33)
[2016-08-09] MEDS: VIT D PO SCH (10:34)
[2016-08-09] MEDS: CALCIUM 1200 MG PO SCH (10:34)
[2016-08-09] MEDS: CEFTRIAXONE 50 ML IVPB SCH (10:35)
--- NOTE | 2016-08-09 11:02 | PN ---
Progress Note (short form) - Note Progress Note: Chief Complaint: Events noted, notes reviewed, remains confused, disoriented but less agitated, denies any chest pain or dyspnea History of Present Illness: Seen and examined on . Events noted, notes reviewed, remains confused, disoriented but less agitated, denies any chest pain or dyspnea Medications: Current Medications Amlodipine Besylate (Norvasc -) 10 mg PO DAILY [facility] Last Admin: 08/09/16 10:30 Dose: 10 mg Apixaban (Eliquis -) 2.5 mg PO BID [facility] Last Admin: 08/09/16 10:33 Dose: 2.5 mg Atorvastatin Calcium (Lipitor -) 40 mg PO HS [facility] Last Admin: 08/08/16 22:35 Dose: 40 mg Citalopram Hydrobromide (Celexa -) 40 mg PO DAILY [facility] Last Admin: 08/09/16 10:29 Dose: 40 mg Divalproex Sodium (Depakote -) 250 mg PO DAILY [facility] Last Admin: 08/09/16 10:33 Dose: 250 mg Folic Acid (Folic Acid -) 1 mg PO DAILY [facility] Last Admin: 08/09/16 10:31 Dose: 1 mg Ceftriaxone Sodium (Rocephin 1gm Ivpb (Pre-Docked)) 50 mls @ 100 mls/hr IVPB DAILY [facility] Last Admin: 08/09/16 10:35 Dose: 100 mls/hr Isosorbide Mononitrate (Imdur -) 30 mg PO DAILY [facility] Last Admin: 08/09/16 10:29 Dose: 30 mg Levetiracetam (Keppra -) 750 mg PO BID [facility] Last Admin: 08/09/16 10:29 Dose: 750 mg Levothyroxine Sodium (Synthroid -) 12.5 mcg PO DAILY@0700 [facility] Metoprolol Tartrate (Lopressor -) 50 mg PO DAILY [facility] Last Admin: 08/09/16 10:31 Dose: 50 mg Namenda Xr 28 Mg Capsule - Patient Own Med 28 mg PO DAILY [facility] Last Admin: 08/09/16 10:31 Dose: 28 mg Calcium 1200 Mg + Vit D 1000 Iu Cap - Patient Own Med 1 each PO DAILY [facility] Last Admin: 08/09/16 10:34 Dose: 1 each Pantoprazole Sodium (Protonix -) 40 mg PO DAILY [facility] Last Admin: 08/09/16 10:29 Dose: 40 mg Quetiapine Fumarate (Seroquel Xr -) 50 mg PO BID [facility] Last Admin: 08/09/16 10:35 Dose: 50 mg Quetiapine Fumarate (Seroquel -) 25 mg PO Q4H PRN PRN Reason: AGITATION Last Admin: 08/09/16 06:39 Dose: 25 mg Ramipril (Altace -) 10 mg PO DAILY [facility] Last Admin: 08/09/16 10:30 Dose: 10 mg Rivastigmine Tartrate (Exelon (Nf) -) 4.5 mg PO BID [facility] Last Admin: 08/09/16 10:32 Dose: 4.5 mg Review of Systems - Review of Systems Constitutional: No symptoms reported Respiratory: denies: Cough or Sputum Production Cardiovascular: As noted above Gastrointestinal: denies Nausea, Vomiting, Diarrhea, Constipation or Abdominal Pain Genitourinary: No symptoms reported Musculoskeletal: Degenerative Joint Disease Endocrine: No symptoms reported Vital Signs: Last Vital Signs Temp Pulse Resp BP Pulse Ox 98.6 F 88 20 120/77 95 08/09/16 07:42 08/09/16 07:42 08/09/16 07:42 08/09/16 07:42 08/08/16 09:00 Constitutional: No Distress Neck: Supple Negative JVD No Bruit Respiratory: Clear to A&P Bilaterally Cardiovascular: S1 S2 Irregularly Irregular Garde 1-2/6 NAVDEEP Gastrointestinal: Soft Benign Normal Bowel Sounds Ext: Negative Edema Labs: CBC, BMP 08/07/16 06:00 08/07/16 06:00 Hepatic Panel Total Bilirubin 0.4 mg/dL (0.2-1.0) D 08/07/16 06:00 AST 16 U/L (15-37) 08/07/16 06:00 ALT 15 U/L (12-78) 08/07/16 06:00 Alkaline Phosphatase 76 U/L (45-117) 08/07/16 06:00 Albumin 3.0 g/dl (3.4-5.0) L 08/07/16 06:00 Assessment/Plan ASSESSMENT: 1. 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 Paroxysmal atrial fibrillation [id number] score of 6 on chronic A/C with NOAC's 5. HTN 6. Hypercholesterolemia 7. History of CVA 8. Hypothyroidism 9. UTI, uro-sepsis PLAN: 1. Continue Q-[id number]-[id number] change to Toprol XL 2. Continue Norvasc 3. Continue Altace 4. Continue Imdur 5. Continue Lipitor 6. Continue Eliquis but dose should be 5 mg twice daily (patient is 86, but wt. is > 60 Kg and Creatinine is < 1.5) considering the above noted [id number] score of 6, unless it is absolutely contraindicated 7. Antibiotics as per the primary team Obi Broussard M.D.
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
[2016-08-09] MEDS ORDERED: PT OWN MED DRAWER 7, Y5N ONE (22:02)
[2016-08-09] MEDS: APIXABAN 5 MG TABLET PO SCH (22:33)
[2016-08-09] MEDS: ATORVASTATIN CA 40 MG TABLET (FP) PO SCH (22:35)
[2016-08-10] MEDS: LEVOTHYROXINE NA 25 MCG TABLET (FP) PO SCH (06:37)
[2016-08-10] MEDS ORDERED: PT OWN MED DRAWER 7, Y5N ONE ×2 (09:38→21:52)
[2016-08-10] MEDS: CITALOPRAM HYDROBROMIDE 20 MG TABLET (FP) PO SCH (09:42)
[2016-08-10] MEDS: amLODIPine BESYLATE 10 MG TABLET (FP) PO SCH (09:42)
[2016-08-10] MEDS: levETIRAcetam 500 MG TABLET (FP) PO SCH ×2 (09:42→21:55)
[2016-08-10] MEDS: PANTOPRAZOLE 40 MG TABLET (FP) PO SCH (09:42)
[2016-08-10] MEDS: ISOSORBIDE MONONITRATE 30 MG TAB.SR.24H (FP) PO SCH (09:42)
[2016-08-10] MEDS: RAMIPRIL 5 MG CAPSULE (FP) PO SCH (09:43)
[2016-08-10] MEDS: METOPROLOL SUCCINATE 50 MG TAB.SR.24H (FP) PO SCH (09:43)
[2016-08-10] MEDS: FOLIC ACID 1 MG TABLET (FP) PO SCH (09:43)
[2016-08-10] MEDS: APIXABAN 5 MG TABLET PO SCH ×2 (09:43→22:01)
[2016-08-10] MEDS: VIT D PO SCH (09:44)
[2016-08-10] MEDS: CALCIUM 1200 MG PO SCH (09:44)
[2016-08-10] MEDS: NAMENDA 28 MG PO SCH (09:44)
[2016-08-10] MEDS: RIVASTIGMINE TARTRATE 1.5 MG CAPSULE PO SCH ×2 (09:46→21:58)
[2016-08-10] MEDS: CEFTRIAXONE 50 ML IVPB SCH (09:51)
[2016-08-10] MEDS ORDERED: PNEUMOC 13-VAL CONJ-DIP CRM/PF 0.5 ML DISP.SYRIN IM ONE (10:15)
--- NOTE | 2016-08-10 11:12 | PN ---
Progress Note (short form) - Note Progress Note: Neurology Progress Note, Physician History of Present Illness: 86 yo previously seen by Dr. Golden for altered mental status. She is now doing well and awake, alert, communicative. Plan for discharge today . Active Medications Generic Name Dose Route Start Last Admin Trade Name Judi PRN Reason Stop Dose Admin Amlodipine Besylate 10 mg 08/07/16 10:00 08/10/16 09:42 Norvasc - PO 10 mg DAILY [facility] Administration Apixaban 5 mg 08/09/16 11:06 08/10/16 09:43 Eliquis - PO 5 mg BID [facility] Administration Atorvastatin Calcium 40 mg 08/06/16 22:00 08/09/16 22:35 Lipitor - PO 40 mg HS [facility] Administration Citalopram Hydrobromide 40 mg 08/07/16 10:00 08/10/16 09:42 Celexa - PO 40 mg DAILY [facility] Administration Divalproex Sodium 250 mg 08/07/16 10:00 08/09/16 10:33 Depakote - PO 250 mg DAILY [facility] Administration Folic Acid 1 mg 08/07/16 10:00 08/10/16 09:43 Folic Acid - PO 1 mg DAILY [facility] Administration Ceftriaxone Sodium 50 mls @ 100 mls/hr 08/07/16 10:00 08/10/16 09:51 Rocephin 1gm Ivpb (Pre-Docked) IVPB 100 mls/hr DAILY [facility] Administration Isosorbide Mononitrate 30 mg 08/07/16 10:00 08/10/16 09:42 Imdur - PO 30 mg DAILY [facility] Administration Levetiracetam 750 mg 08/06/16 22:00 08/10/16 09:42 Keppra - PO 750 mg BID [facility] Administration Levothyroxine Sodium 12.5 mcg 08/10/16 07:00 08/10/16 06:37 Synthroid - PO 12.5 mcg DAILY@0700 [facility] Administration Metoprolol Succinate 50 mg 08/10/16 10:00 08/10/16 09:43 Toprol Xl - PO 50 mg DAILY [facility] Administration Namenda Xr 28 Mg 28 mg 08/08/16 10:00 08/10/16 09:44 Capsule - Patient PO 28 mg Own Med DAILY [facility] Administration Calcium 1200 Mg + 1 each 08/08/16 10:00 08/10/16 09:44 Vit D 1000 Iu Cap - PO 1 each Patient Own Med DAILY [facility] Administration Pantoprazole Sodium 40 mg 08/07/16 10:00 08/10/16 09:42 Protonix - PO 40 mg DAILY [facility] Administration Quetiapine Fumarate 50 mg 08/06/16 22:00 08/09/16 22:36 Seroquel Xr - PO 50 mg BID [facility] Administration Quetiapine Fumarate 25 mg 08/08/16 15:54 08/09/16 06:39 Seroquel - PO 25 mg Q4H PRN Administration AGITATION Ramipril 10 mg 08/07/16 10:00 08/10/16 09:43 Altace - PO 10 mg DAILY [facility] Administration Rivastigmine Tartrate 4.5 mg 08/06/16 22:00 08/10/16 09:46 Exelon (Nf) - PO 4.5 mg BID [facility] Administration - Objective Vital Signs: Vital Signs Temperature 98.4 F 08/08/16 14:43 Pulse Rate 64 08/08/16 14:43 Respiratory Rate 20 08/08/16 14:43 Blood Pressure 113/50 08/08/16 14:43 O2 Sat by Pulse Oximetry (%) 95 08/08/16 09:00 Neurological: Yes: Alert, interactive, strength intact CBCD WBC 7.7 K/mm3 (4.0-10.0) 08/07/16 06:00 RBC 4.20 M/mm3 (3.60-5.2) 08/07/16 06:00 Hgb 12.1 GM/dL (10.7-15.3) 08/07/16 06:00 Hct 37.3 % (32.4-45.2) 08/07/16 06:00 MCV 88.7 fl (80-96) 08/07/16 06:00 MCHC 32.5 g/dl (32.0-36.0) 08/07/16 06:00 RDW 14.2 % (11.6-15.6) 08/07/16 06:00 Plt Count 197 K/MM3 (134-434) 08/07/16 06:00 MPV 9.6 fl (7.5-11.1) 08/07/16 06:00 CMP Sodium 143 mmol/L (136-145) 08/07/16 06:00 Potassium 3.5 mmol/L (3.5-5.1) 08/07/16 06:00 Chloride 110 mmol/L (98-107) H 08/07/16 06:00 Carbon Dioxide 29 mmol/L (21-32) 08/07/16 06:00 Anion Gap 4 (8-16) L 08/07/16 06:00 BUN 20 mg/dL (7-18) H 08/07/16 06:00 Creatinine 0.7 mg/dL (0.55-1.02) 08/07/16 06:00 Creat Clearance w eGFR > 60 (>60) 08/07/16 06:00 Calcium 8.5 mg/dL (8.5-10.1) 08/07/16 06:00 Total Bilirubin 0.4 mg/dL (0.2-1.0) D 08/07/16 06:00 AST 16 U/L (15-37) 08/07/16 06:00 ALT 15 U/L (12-78) 08/07/16 06:00 Alkaline Phosphatase 76 U/L (45-117) 08/07/16 06:00 Total Protein 6.1 g/dl (6.4-8.2) L 08/07/16 06:00 Albumin 3.0 g/dl (3.4-5.0) L 08/07/16 06:00 Assessment/Plan Dementia with altered mental status Treated for UTI Doing well now Can follow up as outpatient
[2016-08-10] MEDS: QUEtiapine FUMARATE 25 MG TABLET (FP) PO PRN (12:16)
[2016-08-10] MEDS: DIVALPROEX SODIUM 250 MG TABLET E.C. (FP) PO SCH (12:17)
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
[2016-08-10] MEDS: ATORVASTATIN CA 40 MG TABLET (FP) PO SCH (21:57)
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
[2016-08-11] MEDS: LEVOTHYROXINE NA 25 MCG TABLET (FP) PO SCH (06:49)
[2016-08-11 07:22] VITALS: BP 133/69; PULSE 72; TEMP 98
[2016-08-11] MEDS: CITALOPRAM HYDROBROMIDE 20 MG TABLET (FP) PO SCH (09:04)
[2016-08-11] MEDS: RAMIPRIL 5 MG CAPSULE (FP) PO SCH (09:04)
[2016-08-11] MEDS: amLODIPine BESYLATE 10 MG TABLET (FP) PO SCH (09:04)
[2016-08-11] MEDS: METOPROLOL SUCCINATE 50 MG TAB.SR.24H (FP) PO SCH (09:05)
[2016-08-11] MEDS: PANTOPRAZOLE 40 MG TABLET (FP) PO SCH (09:05)
[2016-08-11] MEDS: FOLIC ACID 1 MG TABLET (FP) PO SCH (09:05)
[2016-08-11] MEDS: ISOSORBIDE MONONITRATE 30 MG TAB.SR.24H (FP) PO SCH (09:05)
[2016-08-11] MEDS: CEFTRIAXONE 50 ML IVPB SCH (09:07)
[2016-08-11] MEDS: levETIRAcetam 500 MG TABLET (FP) PO SCH (09:08)
[2016-08-11] MEDS: RIVASTIGMINE TARTRATE 1.5 MG CAPSULE PO SCH (09:10)
[2016-08-11] MEDS: APIXABAN 5 MG TABLET PO SCH (09:10)
[2016-08-11] MEDS: DIVALPROEX SODIUM 250 MG TABLET E.C. (FP) PO SCH (09:12)
[2016-08-11] MEDS: CALCIUM 1200 MG PO SCH (09:12)
[2016-08-11] MEDS: VIT D PO SCH (09:12)
[2016-08-11] MEDS: NAMENDA 28 MG PO SCH (09:13)
--- NOTE | 2016-08-11 10:20 | DS ---
Physical Examination Vital Signs: Vital Signs Temperature 98 F 08/11/16 06:00 Pulse Rate 72 08/11/16 06:00 Respiratory Rate 18 08/11/16 06:00 Blood Pressure 133/69 08/11/16 06:00 O2 Sat by Pulse Oximetry (%) 98 08/10/16 21:00 Findings/Remarks: in bed nad walked in hallway with PT therapist, no c/o Constitutional: Yes: No Distress, Calm Eyes: Yes: Conjunctiva Clear HENT: Yes: Atraumatic Neck: Yes: Supple Cardiovascular: Yes: Regular Rate and Rhythm Respiratory: Yes: CTA Bilaterally Gastrointestinal: Yes: Soft. No: Distention, Tenderness Renal/: No: Hematuria Musculoskeletal: No: Joint Stiffness, Joint Swelling Extremities: No: Calf Tenderness, Cold, Cool, Cyanosis Edema: No Peripheral Pulses WNL: Yes Integumentary: No: Rash, Venous Stasis Changes Neurological: Yes: WNL, Alert, Oriented ...Motor Strength: WNL Psychiatric: Yes: WNL, Alert, Oriented. No: Agitated, Suicidal Ideation Labs: CBC, BMP 08/07/16 06:00 08/07/16 06:00 Discharge Summary Reason For Visit: UTI,AMS Current Active Problems Altered mental status (Acute) Diastolic dysfunction without heart failure (Acute) Hyperlipidemia (Acute) Hypothyroidism (Acute) Paroxysmal atrial fibrillation (Acute) UTI (urinary tract infection) (Acute) Procedures: Principal: admitted with changes in MS and UTI Other Procedures: tx with IV ATB; seen by neurology Hospital Course: improved with above; tx to SNF/NH Condition: Improved - Instructions Diet, Activity, Other Instructions: f/u in NH with PCP and cardiology and Neurology falls PFX. constinue meds, f/u labs and UA Ucx in 1-2 weeks RTER if worse or recurrent d/w pt and son and daughter Referrals: Juan Pa MD [Primary Care Provider] - [facility] - Home Medications Comprehensive Discharge Medication List: Ambulatory Orders Amlodipine Besylate [Norvasc -] 10 mg PO DAILY 08/06/16 Atorvastatin Ca [Lipitor] 40 mg PO HS 08/06/16 Calcium Carb, Citrate/Vit D3 [Calcium + D3 ER Tablet] 1 each PO DAILY 08/06/16 Citalopram Hydrobromide [Celexa -] 40 mg PO DAILY 08/06/16 Divalproex Sodium [Depakote] 250 mg PO DAILY 08/06/16 Folic Acid 1 mg PO DAILY 08/06/16 Isosorbide Mononitrate [Imdur -] 30 mg PO DAILY 08/06/16 Levetiracetam 750 mg PO BID 08/06/16 Memantine HCl [Namenda Xr] 28 mg PO DAILY 08/06/16 Metoprolol Tartrate 50 mg PO DAILY 08/06/16 Pantoprazole Sodium 40 mg PO DAILY 08/06/16 Quetiapine Fumarate [Quetiapine Fumarate ER] 50 mg PO BID 08/06/16 Ramipril 10 mg PO DAILY 08/06/16 Rivastigmine Tartrate [Rivastigmine] 4.5 mg PO BID 08/06/16 Apixaban [Eliquis -] 5 mg PO BID tablet 08/10/16 Levothyroxine [Synthroid -] 12.5 mcg PO DAILY@0700 tablet 08/10/16 Metoprolol Succinate [Toprol XL -] 50 mg PO DAILY tab.sr.24h 08/10/16
--- NOTE | 2016-08-11 10:46 | PN ---
Progress Note (short form) - Note Progress Note: Neurology Progress Note, Physician History of Present Illness: 86 yo previously seen by Dr. Golden for altered mental status. She is now doing well and awake, alert, communicative. Plan for discharge today. Ambulting with PT today and some knee discomfort but neurologically stable. Active Medications Amlodipine Besylate (Norvasc -) 10 mg PO DAILY [facility] Last Admin: 08/11/16 09:04 Dose: 10 mg Apixaban (Eliquis -) 5 mg PO BID [facility] Last Admin: 08/11/16 09:10 Dose: 5 mg Atorvastatin Calcium (Lipitor -) 40 mg PO HS [facility] Last Admin: 08/10/16 21:57 Dose: 40 mg Citalopram Hydrobromide (Celexa -) 40 mg PO DAILY [facility] Last Admin: 08/11/16 09:04 Dose: 40 mg Divalproex Sodium (Depakote -) 250 mg PO DAILY [facility] Last Admin: 08/11/16 09:12 Dose: 250 mg Folic Acid (Folic Acid -) 1 mg PO DAILY [facility] Last Admin: 08/11/16 09:05 Dose: 1 mg Ceftriaxone Sodium (Rocephin 1gm Ivpb (Pre-Docked)) 50 mls @ 100 mls/hr IVPB DAILY [facility] Last Admin: 08/11/16 09:07 Dose: 100 mls/hr Isosorbide Mononitrate (Imdur -) 30 mg PO DAILY [facility] Last Admin: 08/11/16 09:05 Dose: 30 mg Levetiracetam (Keppra -) 750 mg PO BID [facility] Last Admin: 08/11/16 09:08 Dose: 750 mg Levothyroxine Sodium (Synthroid -) 12.5 mcg PO DAILY@0700 [facility] Last Admin: 08/11/16 06:49 Dose: 12.5 mcg Metoprolol Succinate (Toprol Xl -) 50 mg PO DAILY [facility] Last Admin: 08/11/16 09:05 Dose: 50 mg Namenda Xr 28 Mg Capsule - Patient Own Med 28 mg PO DAILY [facility] Last Admin: 08/11/16 09:13 Dose: 28 mg Calcium 1200 Mg + Vit D 1000 Iu Cap - Patient Own Med 1 each PO DAILY [facility] Last Admin: 08/11/16 09:12 Dose: 1 each Pantoprazole Sodium (Protonix -) 40 mg PO DAILY [facility] Last Admin: 08/11/16 09:05 Dose: 40 mg Quetiapine Fumarate (Seroquel Xr -) 50 mg PO BID [facility] Last Admin: 08/11/16 09:06 Dose: 50 mg Quetiapine Fumarate (Seroquel -) 25 mg PO Q4H PRN PRN Reason: AGITATION Last Admin: 08/10/16 12:16 Dose: 25 mg Ramipril (Altace -) 10 mg PO DAILY [facility] Last Admin: 08/11/16 09:04 Dose: 10 mg Rivastigmine Tartrate (Exelon (Nf) -) 4.5 mg PO BID [facility] Last Admin: 08/11/16 09:10 Dose: 4.5 mg Vital Signs Temperature 98 F 08/11/16 06:00 Pulse Rate 72 08/11/16 06:00 Respiratory Rate 18 08/11/16 06:00 Blood Pressure 133/69 08/11/16 06:00 O2 Sat by Pulse Oximetry (%) 98 08/10/16 21:00 Neurological: Yes: Alert, interactive, strength intact CBC, BMP 08/07/16 06:00 08/07/16 06:00 Assessment/Plan Dementia with altered mental status Treated for UTI Doing well now Ambulting with PT today and some knee discomfort but neurologically stable Can follow up as outpatient
== END 2016-08-11 11:32 | DRG 689 ==
LOC: JER 09:53 → JERBED 11:39 → J5S 15:30
PROVIDERS: ADMIT Internal Medicine; ATTEND Internal Medicine
DX: N39.0 Urinary tract infection, site not specified (principal); G92 Toxic encephalopathy; F03.91 Unspecified dementia, unspecified severity, with behavioral disturbance; I10 Essential (primary) hypertension; K29.60 Other gastritis without bleeding; Z87.891 Personal history of nicotine dependence; I48.0 Paroxysmal atrial fibrillation; G40.909 Epilepsy, unspecified, not intractable, without status epilepticus; K27.9 Peptic ulcer, site unspecified, unspecified as acute or chronic, without hemorrhage or perforation; I45.10 Unspecified right bundle-branch block; Z86.73 Personal history of transient ischemic attack (TIA), and cerebral infarction without residual deficits; E03.9 Hypothyroidism, unspecified; I25.10 Atherosclerotic heart disease of native coronary artery without angina pectoris
CPT/HCPCS: 36415; 70450-TC; 71010-TC; 80053; 81003; 81015; 82550; 82607; 84439; 84443; 84481; 84484; 85025; 87086; 90670; 93005; 93010; 97116-GP; 97163-GP; 99283-25; G0008; J1644; Q2037

== ENCOUNTER 2016-11-05 14:42 | Emergency (ER) | payer OTHER, MEDICARE ==
--- NOTE | 2016-11-05 15:08 | PDOC ---
History of Present Illness - General Stated Complaint: LEFT RING FINGER FRACTURE Time Seen by Provider: 11/05/16 14:59 History Source: Patient, [facility] Records Exam Limitations: Dementia - History of Present Illness Initial Comments: 11/05/16 15:17 86-year-old female sent over for evaluation of left ring finger fracture. Patient had an x-ray that showed a nondisplaced proximal fracture of the left fourth digit. Patient denies any discomfort at the site and states is unable to completely bend the joint but has full mobility at the other joints. Patient denies previous injury to the affected area. Patient on no blood thinners. Timing/Duration: unsure Severity: mild Associated Symptoms: reports: denies symptoms Past History - Past Medical History Allergies/Adverse Reactions: Allergies Allergy/AdvReac Type Severity Reaction Status Date / Time No Known Allergies Allergy Verified 08/06/16 09:55 Home Medications: Ambulatory Orders Amlodipine Besylate [Norvasc -] 10 mg PO DAILY 08/06/16 Atorvastatin Ca [Lipitor] 40 mg PO HS 08/06/16 Calcium Carb, Citrate/Vit D3 [Calcium + D3 ER Tablet] 1 each PO DAILY 08/06/16 Citalopram Hydrobromide [Celexa -] 40 mg PO DAILY 08/06/16 Divalproex Sodium [Depakote] 250 mg PO DAILY 08/06/16 Folic Acid 1 mg PO DAILY 08/06/16 Isosorbide Mononitrate [Imdur -] 30 mg PO DAILY 08/06/16 Levetiracetam 750 mg PO BID 08/06/16 Memantine HCl [Namenda Xr] 28 mg PO DAILY 08/06/16 Pantoprazole Sodium 40 mg PO DAILY 08/06/16 Quetiapine Fumarate [Quetiapine Fumarate ER] 50 mg PO BID 08/06/16 Ramipril 10 mg PO DAILY 08/06/16 Rivastigmine Tartrate [Rivastigmine] 4.5 mg PO BID 08/06/16 Apixaban [Eliquis -] 5 mg PO BID tablet 08/10/16 Levothyroxine [Synthroid -] 12.5 mcg PO DAILY@0700 tablet 08/10/16 Metoprolol Succinate [Toprol XL -] 50 mg PO DAILY tab.sr.24h 08/10/16 Cardiac Disorders: Yes (A FIB) CVA: (TIA) Dementia: Yes GI Disorders: Yes (PEPTIC ULCER) HTN: Yes Hypercholesterolemia: Yes Psychiatric Problems: Yes (dementia) Seizures: Yes Thyroid Disease: Yes - Surgical History Abdominal Surgery: Yes Cholecystectomy: Yes - Immunization History Immunization Up to Date: Yes - Psycho/Social/Smoking Cessation Hx Anxiety: No Suicidal Ideation: No Smoking Status: No Smoking History: Former smoker Have you smoked in the past 12 months: No Number of Cigarettes Smoked Daily: 0 If you are a former smoker, when did you quit?: 1975 Hx Alcohol Use: No Drug/Substance Use Hx: No Substance Use Type: None Hx Substance Use Treatment: No Patient Lives Alone: No Lives with/in: residential Review of Systems - Review of Systems Able to Perform ROS?: Yes Musculoskeletal: No: Joint Pain Integumentary: Yes: Bruising Neurological: No: Symptoms reported *Physical Exam - Physical Exam General Appearance: Yes: Nourished, Appropriately Dressed. No: Apparent Distress HEENT: positive: EOMI Comments:: 11/05/16 15:21 2+ left radial Extremity: positive: Normal Capillary Refill, Normal Inspection. negative: Normal Range of Motion (unable to completely flex at MCP joint of the left fourth digit) Integumentary: positive: Swelling (minimal at the MCP joint), Ecchymosis Neurologic: positive: Motor Strength 5/5 (left hand grasp) Medical Decision Making - Medical Decision Making 11/05/16 15:22 Patient with known left fourth digit fracture sent here for evaluation. Patient had no neurovascular status compromise and has approximately 90% movement of the left MCP joint. Patient will be saira taped and sent back to the residential. *DC/Admit/Observation/Transfer Diagnosis at time of Disposition: Finger fracture, left - Discharge Dispostion Disposition: HOME Condition at time of disposition: Good - Referrals Referrals: Juan Pa MD [Primary Care Provider] - Wil Franks MD [Staff Physician] - - Patient Instructions Printed Discharge Instructions: DI for Finger Fracture Additional Instructions: Please continue to saira tape for the next 5 days to alleviate reinjury and allow inflammation and swelling to decrease. May give Motrin for discomfort and inflammation
[2016-11-05 15:21] VITALS: BP 145/89; PULSE 90; TEMP 98.6; BMI 29.2
== END 2016-11-05 16:48 ==
LOC: JER 14:42
DX: S62.645A Nondisplaced fracture of proximal phalanx of left ring finger, initial encounter for closed fracture (principal); I48.91 Unspecified atrial fibrillation; Z79.01 Long term (current) use of anticoagulants; I10 Essential (primary) hypertension; E03.9 Hypothyroidism, unspecified; F03.90 Unspecified dementia, unspecified severity, without behavioral disturbance, psychotic disturbance, mood disturbance, and anxiety; Z86.73 Personal history of transient ischemic attack (TIA), and cerebral infarction without residual deficits
CPT/HCPCS: 99283-25

== ENCOUNTER 2016-11-23 15:12 | Emergency (ER) | payer OTHER, MEDICARE ==
[2016-11-23 15:21] VITALS: TEMP 98.5; BMI 28.3
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
[2016-11-23 17:29] VITALS: BP 140/64; PULSE 80
== END 2016-11-23 17:28 ==
LOC: FER 15:12
PROC: 2W3JX1Z Immobilization of Right Finger using Splint (ICD-10-PCS; principal; 2016-11-23)
DX: S62.612A Displaced fracture of proximal phalanx of right middle finger, initial encounter for closed fracture (principal); X58.XXXA Exposure to other specified factors, initial encounter; Y93.9 Activity, unspecified; Y92.129 Unspecified place in nursing home as the place of occurrence of the external cause; F03.90 Unspecified dementia, unspecified severity, without behavioral disturbance, psychotic disturbance, mood disturbance, and anxiety; I10 Essential (primary) hypertension; E78.00 Pure hypercholesterolemia, unspecified; E03.9 Hypothyroidism, unspecified; I48.91 Unspecified atrial fibrillation; F20.9 Schizophrenia, unspecified; Z87.891 Personal history of nicotine dependence
CPT/HCPCS: 29130; 99282-25

== ENCOUNTER 2017-03-26 14:31 | Emergency (ER) | payer OTHER ==
[2017-03-26 14:52] VITALS: TEMP 98.1; BMI 29.2
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
[2017-03-26 16:03] LABS: BASOPHIL 0.7 % (0-2.0); EOSINOPHIL 5.6 % (0-4.5); MCHC 32.7 g/dl (32.0-36.0); MEAN CELL VOLUME 91.5 fl (80-96); NEUTROPHILS 56.9 % (42.8-82.8); PLATELET COUNT 249 K/MM3 (134-434); RDW 14.7 % (11.6-15.6); WHITE BLOOD COUNT 8.5 K/mm3 (4.0-10.0)
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
[2017-03-26 16:49] LABS: ALBUMIN 3.2 g/dl (3.4-5.0); ANION GAP 8 (8-16); BILIRUBIN,TOTAL 0.2 mg/dL (0.2-1.0); CALCIUM 8.5 mg/dL (8.5-10.1); CO2 29 mmol/L (21-32); CREATININE 0.7 mg/dL (0.55-1.02); GLUCOSE,RANDOM 86 mg/dL (74-106); SGOT/AST 21 U/L (15-37); SGPT/ALT 25 U/L (12-78); TOT PROT 6.8 g/dl (6.4-8.2)
[2017-03-26 16:50] LABS: ALK PHOS 91 U/L (45-117)
[2017-03-26 16:54] LABS: URINE APPEARANCE CLOUDY; URINE BILIRUBIN NEGATIVE (NEGATIVE); URINE BLOOD NEGATIVE (NEGATIVE); URINE GLUCOSE (UA) NEGATIVE (NEGATIVE); URINE KETONE NEGATIVE (NEGATIVE); URINE NITRITE POSITIVE (NEGATIVE); URINE UROBILINOGEN NEGATIVE mg/dL (0.2-1.0)
[2017-03-26 16:59] LABS: URINE COLOR YELLOW; URINE LEUK ESTERASE 3+ (NEGATIVE); URINE PROTEIN 1+ (NEGATIVE)
[2017-03-26 17:12] LABS: URINE BACTERIA MANY /hpf (NONE SEEN); URINE HYALINE CAST 9 /lpf; URINE MUCUS FEW; URINE RBC 5 /hpf (0-3); URINE WBC 259 /hpf (3-5)
[2017-03-26] MEDS ORDERED: cefTRIAXone 1 GM/50 ML BAG (PRE-DOCKED) IVPB ONE (17:27)
[2017-03-26] MEDS ORDERED: CEPHALEXIN MONOHYDRATE 500 MG CAPSULE (UD) PO ONE (17:50)
[2017-03-26] MEDS ORDERED: CEPHALEXIN MONOHYDRATE 250 MG CAPSULE (FP) ONE (18:19)
[2017-03-26 18:54] VITALS: BP 150/67; PULSE 62
== END 2017-03-26 18:54 ==
LOC: JER 14:31
DX: N39.0 Urinary tract infection, site not specified (principal); B96.89 Other specified bacterial agents as the cause of diseases classified elsewhere; G30.8 Other Alzheimer's disease; F02.81 Dementia in other diseases classified elsewhere, unspecified severity, with behavioral disturbance; I48.91 Unspecified atrial fibrillation; Z79.01 Long term (current) use of anticoagulants; I10 Essential (primary) hypertension; E03.9 Hypothyroidism, unspecified; G40.909 Epilepsy, unspecified, not intractable, without status epilepticus; Z86.73 Personal history of transient ischemic attack (TIA), and cerebral infarction without residual deficits
CPT/HCPCS: 36415; 70450-TC; 71010-TC; 80053; 81003; 81015; 85025; 99281-25

== ENCOUNTER 2017-08-22 02:18 | Inpatient (IN) | payer OTHER, MEDICARE ==
[2017-08-22 03:10] VITALS: BMI 26.5
--- NOTE | 2017-08-22 03:36 | PDOC ---
History of Present Illness <Linnea Chao - Last Filed: 08/22/17 04:44> <Daniela Rosenthal - Last Filed: 08/22/17 08:02> - History of Present Illness Initial Comments: 08/22/17 03:01 CHIEF COMPLAINT: coffee ground emesis HISTORY OF PRESENT ILLNESS: 86 F with h/o Afib, hypertension, TIA, dementia, hyperlipidemia, peptic ulcer disease, bipolar disorder, schizophrenia, hypothyroidism, and seizure disorder sent to ED from [facility] for coffee ground emesis and constipation. On exam patient denies any vomiting but given history of dementia, patient history is unreliable. Patient currently denies any pain to anywhere on her body, denies any shortness of breath, chest pain, palpitations, lightheadedness, dizziness. PAST MEDICAL HISTORY:as per HPI FAMILY HISTORY: Denies SOCIAL HISTORY: Lives at [facility]. Denies tobacco, alcohol, illicit drug use. SURGICAL HISTORY: Denies ALLERGIES: No known drug allergies PCP: [facility] Advanced Directives: Patient is DNR/DNI. REVIEW OF SYSTEMS - unable to assess, patient unreliable PHYSICAL EXAM General Appearance: Well-appearing, appropriately dressed. No apparent distress. HEENT: Coffee ground emesis. EOMI, PERRLA, normal ENT inspection, normal voice, TMs normal, pharynx normal. No conjunctival pallor. No photophobia, scleral icterus. Respiratory/Chest: Lungs CTAB. Cardiovascular: RRR. S1, S2. No JVD, murmur, bradycardia, tachycardia. Vascular Pulses: Dorsalis-Pedis (R): 2+, Dorsalis-Pedis (L): 2+ Gastrointestinal/Abdominal: Normal bowel sounds. Abdomen soft, non-distended. No tenderness or rebound tenderness. No organomegaly, pulsatile mass, guarding , hernia, hepatomegaly, splenomegaly. Musculoskeletal/Extremities: Normal inspection. FROM of all extremities, normal capillary refill. Pelvis Stable. No CVA tenderness. No tenderness to extremities, pedal edema, swelling, erythema or deformity. Integumentary: Appropriate color, dry, warm. 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 Fully oriented, alert. Appropriate mood/affect. Motor strength 5/5. No appreciable EOM palsy, facial droop or sensory deficit. <Paulette Duong - Last Filed: 08/26/17 05:49> - General Chief Complaint: Nausea/Vomiting Stated Complaint: VOMITING Time Seen by Provider: 08/22/17 02:38 Past History <ChaoLinnea - Last Filed: 08/22/17 04:44> <Sunny Rosenthalee - Last Filed: 08/22/17 08:02> - Past Medical History Anemia: Yes Cardiac Disorders: Yes (A FIB) CVA: (TIA) Dementia: Yes GI Disorders: Yes (PEPTIC ULCER) HTN: Yes Hypercholesterolemia: Yes Psychiatric Problems: Yes (schizophrenia,depression,bipolar) Seizures: Yes Thyroid Disease: Yes - Surgical History Abdominal Surgery: Yes Cholecystectomy: Yes - Immunization History Immunization Up to Date: Yes - Suicide/Smoking/Psychosocial Hx Smoking Status: No Smoking History: Never smoked Have you smoked in the past 12 months: No Number of Cigarettes Smoked Daily: 0 If you are a former smoker, when did you quit?: 1975 Information on smoking cessation initiated: No Hx Alcohol Use: No Drug/Substance Use Hx: No Substance Use Type: None Hx Substance Use Treatment: No <Paulette Duong - Last Filed: 08/26/17 05:49> - Past Medical History Allergies/Adverse Reactions: Allergies Allergy/AdvReac Type Severity Reaction Status Date / Time No Known Allergies Allergy Verified 08/22/17 02:27 Home Medications: Ambulatory Orders Acetaminophen 325 mg PO PRN 08/22/17 Atorvastatin Ca [Lipitor] 40 mg PO HS 08/22/17 Calcium Carbonate/Vitamin D3 [Calcium 500-Vit D3 400 Tablet] 1 each PO DAILY Citalopram Hydrobromide [Celexa -] 40 mg PO DAILY 08/22/17 Divalproex Sodium 125 mg PO DAILY 08/22/17 Isosorbide Mononitrate [Isosorbide Mononitrate ER] 30 mg PO DAILY 08/22/17 Levetiracetam [Keppra] 750 mg PO DAILY 08/22/17 Memantine HCl 10 mg PO DAILY 08/22/17 Multivitamin [Multiple Vitamins] 1 each PO DAILY 08/22/17 Quetiapine Fumarate [Seroquel] 50 mg PO BID 08/22/17 Rivastigmine Tartrate [Rivastigmine] 4.5 mg PO DAILY 08/22/17 Mag Hydrox/Al Hydrox/Simeth [Mylanta Oral Suspension -] 30 ml PO QID cup Metoprolol Succinate [Toprol XL -] 25 mg PO DAILY tab.sr.24h 08/25/17 Pantoprazole Sodium [Protonix -] 40 mg PO BID tablet.ec 08/25/17 Ramipril [Altace] 5 mg PO DAILY capsule 08/25/17 *Physical Exam - Vital Signs Last Vital Signs Temp Pulse Resp BP Pulse Ox 97.7 F 82 18 121/67 99 08/22/17 02:27 08/22/17 02:27 08/22/17 02:27 08/22/17 02:27 08/22/17 02:27 <Linnea Chao - Last Filed: 08/22/17 04:44> - Vital Signs Last Vital Signs Temp Pulse Resp BP Pulse Ox 97.7 F 110 H 18 126/60 93 L 08/22/17 02:27 08/22/17 06:04 08/22/17 06:04 08/22/17 06:04 08/22/17 06:04 <Daniela Rosenthal - Last Filed: 08/22/17 08:02> - Vital Signs Last Vital Signs Temp Pulse Resp BP Pulse Ox 97.7 F 82 18 121/67 99 08/22/17 02:27 08/22/17 02:27 08/22/17 02:27 08/22/17 02:27 08/22/17 02:27 <Paulette Duong - Last Filed: 08/26/17 05:49> ED Treatment Course - LABORATORY CBC & Chemistry Diagram: 08/22/17 03:50 08/22/17 03:50 - ADDITIONAL ORDERS Additional order review: Laboratory Results 08/22/17 08/22/17 08/22/17 03:50 03:50 03:00 PT with INR 13.50 H INR 1.19 H PTT (Actin FS) 32.5 Urine Color Yellow Urine Appearance Slcloudy Urine pH 5.0 Ur Specific Drayden 1.024 Urine Protein Negative Urine Glucose (UA) Negative Urine Ketones Trace H Urine Blood Negative Urine Nitrite Negative Urine Bilirubin Negative Urine Urobilinogen Negative Ur Leukocyte Esterase Negative Stool Occult Blood Negative 08/22/17 03:50 RBC 3.45 L MCV 92.5 MCHC 31.8 L RDW 14.9 MPV 9.5 Neutrophils % 77.1 D Lymphocytes % 10.9 D Monocytes % 8.1 Eosinophils % 3.4 Basophils % 0.5 - RADIOLOGY Radiology Studies Ordered: Category Date Time Status CHEST X-RAY PORTABLE* [RAD] Stat Radiology 08/22/17 04:36 Ordered <Linnea Chao - Last Filed: 08/22/17 04:44> - LABORATORY CBC & Chemistry Diagram: 08/22/17 03:50 08/22/17 03:50 - ADDITIONAL ORDERS Additional order review: Laboratory Results 08/22/17 08/22/17 08/22/17 03:50 03:50 03:50 PT with INR 13.50 H INR 1.19 H PTT (Actin FS) 32.5 Sodium 146 H Potassium 3.6 Chloride 105 Carbon Dioxide 32 Anion Gap 9 BUN 64 H Creatinine 1.3 H Creat Clearance w eGFR 38.84 Random Glucose 116 H Calcium 8.9 Total Bilirubin 0.3 D AST 21 ALT 15 Alkaline Phosphatase 88 Creatine Kinase 36 Troponin I < 0.02 Total Protein 6.8 Albumin 2.6 L Urine Color Yellow Urine Appearance Slcloudy Urine pH 5.0 Ur Specific Drayden 1.024 Urine Protein Negative Urine Glucose (UA) Negative Urine Ketones Trace H Urine Blood Negative Urine Nitrite Negative Urine Bilirubin Negative Urine Urobilinogen Negative Ur Leukocyte Esterase Negative Stool Occult Blood 08/22/17 03:00 PT with INR INR PTT (Actin FS) Sodium Potassium Chloride Carbon Dioxide Anion Gap BUN Creatinine Creat Clearance w eGFR Random Glucose Calcium Total Bilirubin AST ALT Alkaline Phosphatase Creatine Kinase Troponin I Total Protein Albumin Urine Color Urine Appearance Urine pH Ur Specific Drayden Urine Protein Urine Glucose (UA) Urine Ketones Urine Blood Urine Nitrite Urine Bilirubin Urine Urobilinogen Ur Leukocyte Esterase Stool Occult Blood Negative 08/22/17 03:50 RBC 3.45 L MCV 92.5 MCHC 31.8 L RDW 14.9 MPV 9.5 Neutrophils % 77.1 D Lymphocytes % 10.9 D Monocytes % 8.1 Eosinophils % 3.4 Basophils % 0.5 - Medications Given in the ED: ED Medications Discontinued Medications Generic Name Dose Route Start Last Admin Trade Name Freq PRN Reason Stop Dose Admin Metoclopramide HCl 10 mg 08/22/17 06:50 08/22/17 07:21 Reglan Injection - IVPUSH 08/22/17 06:51 10 mg ONCE ONE Administration Ondansetron HCl 4 mg 08/22/17 04:56 08/22/17 05:06 Zofran Injection IVPUSH 08/22/17 04:57 4 mg ONCE ONE Administration Pantoprazole Sodium 40 mg 08/22/17 04:22 08/22/17 05:06 Protonix Iv IVPUSH 08/22/17 04:23 40 mg ONCE ONE Administration Sodium Chloride 500 ml 08/22/17 04:47 08/22/17 05:06 Normal Saline - IV 08/22/17 04:48 500 ml ONCE ONE Administration Sodium Chloride 500 ml 08/22/17 06:40 08/22/17 07:00 Normal Saline - IV 08/22/17 06:41 500 ml ONCE ONE Administration <Daniela Rosenthal - Last Filed: 08/22/17 08:02> - LABORATORY CBC & Chemistry Diagram: 08/25/17 05:58 08/25/17 05:58 <Paulette Duong - Last Filed: 08/26/17 05:49> Medical Decision Making - Medical Decision Making 08/22/17 04:08 86 F with h/o Afib, hypertension, TIA, dementia, hyperlipidemia, peptic ulcer disease, bipolar disorder, schizophrenia, hypothyroidism, and seizure disorder sent to ED from [facility] for coffee ground emesis and constipation. -CBC, CMP, card profile, PT/PTT/INR, T&S -Stool guaiac -EKG EKG unchanged from prior 03/18. Laboratory Tests 08/22/17 08/22/17 03:50 03:50 WBC 13.3 H D RBC 3.45 L Hgb 10.1 L D Hct 31.9 L BUN 64 H Creatinine 1.3 H Guaiac negative. Patient's H&H is lower than previous. Patient also has elevated BUN 64 and creatinine of 1.3. Will admit for serial H&H and GI consult for upper GI bleed and FERNANDO. -IV Protonix -500 mL IVF Patient currently actively vomiting. -IV Zofran 08/22/17 05:10 Patient's daughter is now at bedside. Per daughter, patient was admitted to [facility] 08/12-08/20 for UTI and was evaluated by psych for being combative. She reports that patient has been vomiting persistently "at least 4- 5 times" over the past 24 hours and that the snf "did an x-ray and thinks she's very constipated, which might have caused the bleed and her to vomit." 08/22/17 06:44 Patient VS remarkable at this time for HR 110, O2 Sat 93. -500 mL IVF x 2 -Protonix drip -Tele monitor Discussed case with hospitalist attending MD Roque, who accepts patient for inpatient admission. GI consult placed. 08/22/17 06:57 Patient continues to actively vomit. -Reglan -NG tube Patient signed out to dayshift [facility] Rosenthal. <Paulette Duong - Last Filed: 08/26/17 05:49> *DC/Admit/Observation/Transfer <Linnea Chao - Last Filed: 08/22/17 04:44> <Daniela Rosenthal - Last Filed: 08/22/17 08:02> - Discharge Dispostion Admit: Yes <Paulette Duong - Last Filed: 08/26/17 05:49> Diagnosis at time of Disposition: Coffee ground emesis - Discharge Dispostion Condition at time of disposition: Stable
[2017-08-22 04:01] LABS: BASO % 0.5 % (0-2.0); EOS % 3.4 % (0-4.5); HEMATOCRIT 31.9 % (32.4-45.2); HEMOGLOBIN 10.1 GM/dL (10.7-15.3); LYMPH % 10.9 % (8-40); MCH 29.4 pg (25.7-33.7); MCHC 31.8 g/dl (32.0-36.0); MEAN CELL VOLUME 92.5 fl (80-96); MEAN PLT VOLUME 9.5 fl (7.5-11.1); MONO % 8.1 % (3.8-10.2); NEUT % 77.1 % (42.8-82.8); PLATELET COUNT 250 K/MM3 (134-434); RBC 3.45 M/mm3 (3.60-5.2); RDW 14.9 % (11.6-15.6); WHITE BLOOD COUNT 13.3 K/mm3 (4.0-10.0)
[2017-08-22 04:03] LABS: URINE APPEARANCE SLCLOUDY; URINE BILIRUBIN NEGATIVE (NEGATIVE); URINE BLOOD NEGATIVE (NEGATIVE); URINE COLOR YELLOW; URINE GLUCOSE (UA) NEGATIVE (NEGATIVE); URINE KETONE TRACE (NEGATIVE); URINE LEUK ESTERASE NEGATIVE (NEGATIVE); URINE NITRITE NEGATIVE (NEGATIVE); URINE PROTEIN NEGATIVE (NEGATIVE); URINE UROBILINOGEN NEGATIVE mg/dL (0.2-1.0)
[2017-08-22 04:14] LABS: INR 1.19 (0.82-1.09); PROTHROMBIN TIME (PATIENT) 13.5 SEC (9.98-11.88)
[2017-08-22 04:17] LABS: ACTIVATED PTT 32.5 SECONDS (26.9-34.4)
[2017-08-22] MEDS ORDERED: PANTOPRAZOLE SODIUM 40 MG VIAL IVPUSH ONE (04:22)
[2017-08-22 04:45] LABS: ALBUMIN 2.6 g/dl (3.4-5.0); ALK PHOS 88 U/L (45-117); ANION GAP 9 (8-16); BILIRUBIN,TOTAL 0.3 mg/dL (0.2-1.0); BLOOD UREA NITROGEN 64 mg/dL (7-18); CALCIUM 8.9 mg/dL (8.5-10.1); CHLORIDE 105 mmol/L (98-107); CO2 32 mmol/L (21-32); CREATININE 1.3 mg/dL (0.55-1.02); GLUCOSE,RANDOM 116 mg/dL (74-106); POTASSIUM 3.6 mmol/L (3.5-5.1); SGOT/AST 21 U/L (15-37); SGPT/ALT 15 U/L (12-78); SODIUM 146 mmol/L (136-145); TOT PROT 6.8 g/dl (6.4-8.2)
[2017-08-22] MEDS ORDERED: SODIUM CHLORIDE 0.9% 1000 ML INFUS.BAG IV ONE (04:47)
[2017-08-22] MEDS ORDERED: ONDANSETRON 4 MG/2 ML VIAL ONE (04:51)
[2017-08-22] MEDS ORDERED: PANTOPRAZOLE SODIUM 40 MG VIAL ONE (04:52)
[2017-08-22] MEDS ORDERED: ONDANSETRON 4 MG/2 ML VIAL IVPUSH ONE (04:56)
[2017-08-22] MEDS ORDERED: SODIUM CHLORIDE 0.9% 500 ML INFUS.BAG IV ONE (06:40)
[2017-08-22] MEDS ORDERED: PANTOPRAZOLE SODIUM 80 MG in SODIUM CHLORIDE 100 ML IVPB SCH (06:45)
[2017-08-22] MEDS ORDERED: METOCLOPRAMIDE HCL INJECTION 10 MG/2 ML VIAL IVPUSH ONE (06:50)
[2017-08-22] MEDS ORDERED: METOCLOPRAMIDE HCL INJECTION 10 MG/2 ML VIAL ONE (06:54)
--- NOTE | 2017-08-22 08:11 | HOSP ---
Subjective - Review of Symptoms Events since last encounter: Patient is Dr. Pa's patient, discussed with Dr. Rafy Pa accepted the patient and will see the patient. Physical Examination Vital Signs: Vital Signs Temperature 97.7 F 08/22/17 02:27 Pulse Rate 110 H 08/22/17 06:04 Respiratory Rate 18 08/22/17 06:04 Blood Pressure 126/60 08/22/17 06:04 O2 Sat by Pulse Oximetry (%) 93 L 08/22/17 06:04 Labs: CBC, BMP 08/22/17 03:50 08/22/17 03:50
[2017-08-22] MEDS: PANTOPRAZOLE SODIUM 160 MG in DEXTROSE 5%-WATER - 290 ML IVPB SCH (08:19)
[2017-08-22 09:07] LABS: HEMATOCRIT 30.6 % (32.4-45.2); HEMOGLOBIN 9.7 GM/dL (10.7-15.3); MCH 29.8 pg (25.7-33.7); MCHC 31.7 g/dl (32.0-36.0); MEAN CELL VOLUME 93.8 fl (80-96); MEAN PLT VOLUME 9.4 fl (7.5-11.1); PLATELET COUNT 230 K/MM3 (134-434); RBC 3.26 M/mm3 (3.60-5.2); RDW 14.4 % (11.6-15.6); WHITE BLOOD COUNT 9.8 K/mm3 (4.0-10.0)
--- NOTE | 2017-08-22 12:48 | EKG ---
Test Reason : Blood Pressure : / mmHG Vent. Rate : 114 BPM Atrial Rate : 114 BPM P-R Int : 170 ms QRS Dur : 150 ms QT Int : 356 ms P-R-T Axes : 068 075 055 degrees QTc Int : 490 ms SINUS TACHYCARDIA RIGHT BUNDLE BRANCH BLOCK POSSIBLE INFERIOR INFARCT (CITED ON OR BEFORE 06-AUG-2016) T WAVE ABNORMALITY, CONSIDER LATERAL ISCHEMIA ABNORMAL ECG WHEN COMPARED WITH ECG OF 06-AUG-2016 10:41, VENT. RATE HAS INCREASED BY 55 BPM QUESTIONABLE CHANGE IN INITIAL FORCES OF INFERIOR LEADS T WAVE INVERSION NOW EVIDENT IN LATERAL LEADS Confirmed by Billy Fisher ([id number]) on 08/22/2017 12:47:57 PM Referred By: Confirmed By:Billy Fisher
[2017-08-22] MEDS ORDERED: SODIUM CHLORIDE 1,000 ML IV SCH (13:00)
[2017-08-22] MEDS ORDERED: ACETAMINOPHEN 325 MG TABLET (FP) PO PRN (13:00)
--- NOTE | 2017-08-22 13:02 | HP ---
Admitting History and Physical - Primary Care Physician PCP: Juan Pa - Admission Chief Complaint: GIB History of Present Illness: Pt with a resident of [facility], who was admitted to [facility] for Dementia with agitation, returned Wednesday, started to vomit yesterday yesterday few times, noticed to have coffee ground vomitus, transferred to ER. In ER she stop vomiting in AM - Past Medical History [employer] SPECIALIST: Yes: CVA, Dementia (with aggitation) Cardiovascular: Yes: AFIB, HTN, Hyperlipdemia Gastrointestinal: Yes: Peptic Ulcer Disease Endocrine: Yes: Hypothyroidism - Past Surgical History Past Surgical History: Yes: Cholecystectomy - Smoking History Smoking history: Never smoked Have you smoked in the past 12 months: No Aproximately how many cigarettes per day: 0 If you are a former smoker, when did you quit?: 1975 - Alcohol/Substance Use Hx Alcohol Use: No History of Substance Use: reports: None - Social History ADL: Support Services History of Recent Travel: No Home Medications - Allergies Allergies/Adverse Reactions: Allergies Allergy/AdvReac Type Severity Reaction Status Date / Time No Known Allergies Allergy Verified 08/22/17 02:27 - Home Medications Home Medications: Ambulatory Orders Acetaminophen 325 mg PO PRN 08/22/17 Amlodipine Besylate 10 mg PO DAILY 08/22/17 Atorvastatin Ca [Lipitor] 40 mg PO HS 08/22/17 Calcium Carbonate/Vitamin D3 [Calcium 500 + Vit D3 400 Tab] 1 each PO DAILY Citalopram Hydrobromide [Celexa -] 40 mg PO DAILY 08/22/17 Divalproex Sodium 125 mg PO DAILY 08/22/17 Isosorbide Mononitrate [Isosorbide Mononitrate ER] 30 mg PO DAILY 08/22/17 Levetiracetam [Keppra] 750 mg PO DAILY 08/22/17 Memantine HCl 10 mg PO DAILY 08/22/17 Multivitamin [Multiple Vitamins] 1 each PO DAILY 08/22/17 Quetiapine Fumarate [Seroquel] 50 mg PO BID 08/22/17 Ramipril 10 mg PO DAILY 08/22/17 Rivastigmine Tartrate [Rivastigmine] 4.5 mg PO DAILY 08/22/17 Review of Systems Findings/Remarks: Difficult, limited - Review of Systems Constitutional: denies: Chills, Fever HENT: denies: Throat Pain Cardiovascular: denies: Chest Pain, Edema, Palpitations Respiratory: denies: Cough, SOB Gastrointestinal: denies: Abdominal Pain, Nausea Genitourinary: denies: Burning, Dysuria Neurological: denies: Change in Speech Physical Examination Vital Signs: Vital Signs Temperature 99.1 F 08/22/17 08:52 Pulse Rate 93 H 08/22/17 12:52 Respiratory Rate 18 08/22/17 12:52 Blood Pressure 104/51 08/22/17 11:37 O2 Sat by Pulse Oximetry (%) 95 08/22/17 12:52 Findings/Remarks: Pt is on Venti mask, per her nurse she is desating (below 88%) when sleeps. Family is at bedside, in ER. Constitutional: Yes: No Distress, Calm Eyes: Yes: EOM Intact HENT: No: Epistaxis, Rhinnorhea Neck: Yes: Trachea Midline. No: Lymphadenopathy Cardiovascular: Yes: Regular Rate and Rhythm, S1, S2 Respiratory: Yes: Regular, Other (coarse BS at bases). No: Rhonchi Gastrointestinal: Yes: Normal Bowel Sounds, Soft. No: Tenderness ...Rectal Exam: Yes: Deferred Breast(s): Yes: Other (deferred) Edema: No Neurological: Yes: Alert, Oriented (to family) Labs: CBC, BMP 08/22/17 08:38 08/22/17 03:50 Imaging - Results Chest X-ray: Report Reviewed Problem List - Problems (1) Coffee ground emesis Code(s): K92.0 - HEMATEMESIS (2) GIB (gastrointestinal bleeding) Code(s): K92.2 - GASTROINTESTINAL HEMORRHAGE, UNSPECIFIED (3) Peptic ulcer disease Code(s): K27.9 - PEPTIC ULC, SITE UNSP, UNSP AC OR CHR, W/O HEMOR OR PERF (4) Dementia with behavioral disturbance Code(s): F03.91 - UNSPECIFIED DEMENTIA WITH BEHAVIORAL DISTURBANCE (5) Paroxysmal atrial fibrillation Code(s): I48.0 - PAROXYSMAL ATRIAL FIBRILLATION (6) Hypothyroidism Code(s): E03.9 - HYPOTHYROIDISM, UNSPECIFIED (7) HTN (hypertension) Code(s): I10 - ESSENTIAL (PRIMARY) HYPERTENSION Qualifiers: Hypertension type: essential hypertension Qualified Code(s): I10 - Essential (primary) hypertension (8) Hyperlipidemia Code(s): E78.5 - HYPERLIPIDEMIA, UNSPECIFIED (9) Seizure disorder Code(s): G40.909 - EPILEPSY, UNSP, NOT INTRACTABLE, WITHOUT STATUS EPILEPTICUS Assessment/Plan IV PPI Serial CBC, monitor H/H; pt might xiomy PRBC Tx. Monitor fever curve, WBC- pt at risk of aspiration GI Consult NPO except meds Admit to monitor bed CCM consult. Pt's condition's was reviewed with family: reserved prognosis; all questions were answered. Case was d/w pt's nurse.
[2017-08-22] MEDS ORDERED: QUEtiapine FUMARATE 25 MG TABLET (FP) ONE ×2 (13:10→22:11)
[2017-08-22] MEDS ORDERED: CITALOPRAM HYDROBROMIDE 10 MG TABLET (FP) ONE (13:10)
[2017-08-22] MEDS ORDERED: levETIRAcetam 500 MG TABLET (FP) PO ONE (13:10)
[2017-08-22] MEDS ORDERED: DIVALPROEX SODIUM 125 MG TABLET E.C. (FP) ONE (13:11)
[2017-08-22] MEDS: CITALOPRAM HYDROBROMIDE 20 MG TABLET (FP) PO SCH (13:17)
[2017-08-22] MEDS: DIVALPROEX SODIUM 125 MG TABLET E.C. (FP) PO SCH (13:18)
[2017-08-22] MEDS: QUEtiapine FUMARATE 25 MG TABLET (FP) PO SCH ×2 (13:18→22:11)
[2017-08-22] MEDS: levETIRAcetam 250 MG TABLET (FP) PO SCH (13:18)
[2017-08-22] MEDS: ISOSORBIDE MONONITRATE 30 MG TAB.SR.24H (FP) PO SCH (13:18)
--- NOTE | 2017-08-22 15:07 | PN ---
Progress Note (short form) - Note Progress Note: GI CONSULTATION FOR DR BARRETO: SEE THE COMPLETE CONSULT DICTATION IN BRIEF: 87F FROM NH WITH OMS/HTN/HLD/AFIB ON A/C WITYH ELIQUIS KNOWN HAMMER'S ESOPHAGUS AND PUD HAD UNREVEALING EGD EXAM 2016 ADMIT WITH HEMODYNAMICALLY INSIGNIFICNAT GI BLEED/ LIKELY UGIB WITH PRESENTATION OF COFEE GROUNDS VOMITING AND STOOL THAT IS DARK/G++ DROP IN HGB FROM BASELINE OF 12 GRAMS TO 9.7 GRAMS. IT APPEARS PT HAD A LOT OF ENTERIC VOMITING PRIOR TO THE ONSET OF COFFEE GROUNDS --RAISING ? OF MUCOSAL INJURY FROM VOMITING/MWT WHILE ON A/C RECC: NPO/ D/C ELIQUIS AND ALLOW IT TO WEAR OFF OVER NEXT 24 HOURS F/U H/H---IF HGB DROPS <9 WILL NEED PRBC'S PPI IV DRIP 8MG/HR DX EGD +/- RX EXAMINATION 08/23----FAMILY IN AGREEMENT WITH PLAN AND CONSENTS TO EXAM THANKS, MD NEWTON
--- NOTE | 2017-08-22 15:50 | CONS ---
DATE OF CONSULTATION: 08/22/2017 I was asked by Dr. Pa to evaluate the patient for GI bleeding. The patient is an 87-year-old elderly woman who has underlying dementia and cannot elicit any medical history. The history, at the bedside, comes from the patient's family, including her sister and children. The patient apparently is a resident of the [facility], who had been at [place] for evaluation of dementia. She returned back to the [facility] 2 days ago and had the onset of acute vomiting several times and then was found to have coffee-ground vomitus. She was transferred to the emergency room. In the ER, she has not had any further vomiting, in speaking with the emergency room physician. Apparently the patient has a longstanding gastrointestinal history, has been followed by Dr. Hilario Griggs for many years. 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 Apparently she does have a history of peptic ulcer disease and it is unclear the extent of bleeding that she has had. The patient does not want to take non-steroidal medication; however, she has been on Eliquis at the care home. There have been no reports of any abdominal discomfort, pain, or prior vomiting, and there are no reports of change in bowels. The patient has not had any black tarry stools or prior blood per rectum. Her past medical history is noted for atrial fibrillation, on anticoagulation, with hypertension, hyperlipidemia, hypothyroidism, and vascular dementia. She is status post cholecystectomy without other surgery. The patient does not smoke and she does not drink. Again, she is underlying demented and living at the [facility]. There is no known drug allergy. The patient comes in on Tylenol, amlodipine, Lipitor, calcium, Celexa, divalproex sodium, isosorbide mononitrate, Keppra, multivitamins, Seroquel, ramipril, rivastigmine, and the Eliquis. On physical exam currently at the present time, she has a borderline tachycardia. Her heart rate is now slowed down to the 90s. Her blood pressure is okay at 104/64; she had been 97/61. She appears quite elderly, frail, and pale on examination. Her dentition is poor. Her mouth is very dry. Her neck is supple. Her heart is irregularly irregular. Her abdomen is obese, soft. Bowel sounds are heard. There is no tenderness to deep palpation. There are no masses, rebound, or guarding. There is a healed scar in the right upper quadrant. Otherwise, on rectal exam, she has dark stool that is strongly guaiac positive. Her laboratory data is notable in that today her white count is 9.8 with a hemoglobin of 9.7 and hematocrit 30.6. Now it looks like her baseline hemoglobin has been around 12, so she now dropped to 9.7 with hematocrit of 30.6 and she has a platelet count of 230,000 platelets. Her coagulation studies reveal an INR now of 1.1. Her chemistries reveal a sodium 146, potassium 3.6, chloride 105, bicarbonate of 32, BUN of 64, creatinine 1.3. Otherwise her liver enzymes are unremarkable. So it is my impression that the patient is an 87-year-old elderly care home patient at the [facility], who has hypertension, hyperlipidemia, chronic atrial fibrillation. She is known to have a Martinez esophagus and, according to the family, has had multiple evaluations with Dr. Griggs over the past 20 years. She comes in on anticoagulation and is noted to have a hemodynamically stable what appears to be an upper GI bleed. At this time, she appears comfortable without further vomiting. I have recommended that she be on a proton pump inhibitor drip, she be off NSAIDs, and that we allow her Eliquis to wear off, and in the next 24 hours, she will undergo a diagnostic and possibly therapeutic upper endoscopy. Will keep her NPO at midnight, and for now, I would keep her n.p.o. as well, following up her hemoglobin and hematocrit. It appears she has dropped from a baseline hemoglobin of 12 down to 9.7. If her hemoglobin drops further, she will need packed cells. We will continue to be available to aide in the management of this patient. Thank you kindly. ISAIAH GLEZ M.D. PARVEEN/[id number]
--- NOTE | 2017-08-22 16:07 | CON.CARD ---
Consult Consult Specialty:: Cardiology Referred by:: Juan Pa MD Reason for Consultation:: Pre-procedure CV evaluation - History of Present Illness Chief Complaint: Hematemesis History of Present Illness: Pt with a resident of [facility] h/o dementia, HTN, chol. paroxysmal afib on Eliquis, Theo's esophagus and PUD admitted for hemodynamically insignificant UGIB with coffee ground emesis and melena, plan for EGD, possibility of lashawn cruz tears. 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, Dementia (with aggitation) Cardio/Vascular: Yes: AFIB, HTN, Hyperlipdemia Gastrointestinal: Yes: Peptic Ulcer Disease Endocrine: Yes: Hypothyroidism - Past Surgical History Past Surgical History: Yes: Cholecystectomy - Alcohol/Substance Use Hx Alcohol Use: No History of Substance Use: reports: None - Smoking History Smoking history: Never smoked Have you smoked in the past 12 months: No Aproximately how many cigarettes per day: 0 If you are a former smoker, when did you quit?: 1975 - Social History ADL: Support Services History of Recent Travel: No Home Medications - Allergies Allergies/Adverse Reactions: Allergies Allergy/AdvReac Type Severity Reaction Status Date / Time No Known Allergies Allergy Verified 08/22/17 02:27 - Home Medications Home Medications: Ambulatory Orders Acetaminophen 325 mg PO PRN 08/22/17 Amlodipine Besylate 10 mg PO DAILY 08/22/17 Atorvastatin Ca [Lipitor] 40 mg PO HS 08/22/17 Calcium Carbonate/Vitamin D3 [Calcium 500 + Vit D3 400 Tab] 1 each PO DAILY Citalopram Hydrobromide [Celexa -] 40 mg PO DAILY 08/22/17 Divalproex Sodium 125 mg PO DAILY 08/22/17 Isosorbide Mononitrate [Isosorbide Mononitrate ER] 30 mg PO DAILY 08/22/17 Levetiracetam [Keppra] 750 mg PO DAILY 08/22/17 Memantine HCl 10 mg PO DAILY 08/22/17 Multivitamin [Multiple Vitamins] 1 each PO DAILY 08/22/17 Quetiapine Fumarate [Seroquel] 50 mg PO BID 08/22/17 Ramipril 10 mg PO DAILY 08/22/17 Rivastigmine Tartrate [Rivastigmine] 4.5 mg PO DAILY 08/22/17 Review of Systems - Review of Systems Gastrointestinal: reports: Melena, Vomiting Vital Signs: Vital Signs Temperature 99.1 F 08/22/17 08:52 Pulse Rate 93 H 08/22/17 13:24 Respiratory Rate 18 08/22/17 13:24 Blood Pressure 104/64 08/22/17 13:24 O2 Sat by Pulse Oximetry (%) 95 08/22/17 13:24 Constitutional: Yes: No Distress, Calm Neck: Yes: Supple Respiratory: Yes: Regular, CTA Bilaterally Gastrointestinal: Yes: Soft, Melena Cardiovascular: Yes: Regular Rate and Rhythm JVD: No Carotid Bruit: No Heart Sounds: Yes: S1, S2 Murmur: Yes: Systolic Murmur, Grade 1 Edema: No - Other Data Labs, Other Data: CBC, BMP 08/22/17 08:38 08/22/17 03:50 INR, PTT INR 1.19 (0.82-1.09) H 08/22/17 03:50 Troponin, BNP 08/22/17 03:50 Troponin I < 0.02 Troponin, BNP 08/22/17 03:50 Troponin I < 0.02 ST @114 RBBB T waves laterally Imaging - Results Chest X-ray: Report Reviewed (NAD) Problem List - Problems (1) Pre-procedural cardiovascular examination Code(s): Z01.810 - ENCOUNTER FOR PREPROCEDURAL CARDIOVASCULAR EXAMINATION (2) Coffee ground emesis Code(s): K92.0 - HEMATEMESIS (3) Peptic ulcer disease Code(s): K27.9 - PEPTIC ULC, SITE UNSP, UNSP AC OR CHR, W/O HEMOR OR PERF (4) Dementia Code(s): F03.90 - UNSPECIFIED DEMENTIA WITHOUT BEHAVIORAL DISTURBANCE Qualifiers: Dementia type: unspecified type Dementia behavioral disturbance: without behavioral disturbance Qualified Code(s): F03.90 - Unspecified dementia without behavioral disturbance (5) Diastolic dysfunction without heart failure Code(s): I51.9 - HEART DISEASE, UNSPECIFIED (6) HTN (hypertension) Code(s): I10 - ESSENTIAL (PRIMARY) HYPERTENSION Qualifiers: Hypertension type: essential hypertension Qualified Code(s): I10 - Essential (primary) hypertension (7) Hyperlipidemia Code(s): E78.5 - HYPERLIPIDEMIA, UNSPECIFIED Qualifiers: Hyperlipidemia type: pure hypercholesterolemia Qualified Code(s): E78.00 - Pure hypercholesterolemia, unspecified; E78.0 - Pure hypercholesterolemia (8) Hypothyroidism Code(s): E03.9 - HYPOTHYROIDISM, UNSPECIFIED Qualifiers: Hypothyroidism type: unspecified Qualified Code(s): E03.9 - Hypothyroidism , unspecified (9) Paroxysmal atrial fibrillation Code(s): I48.0 - PAROXYSMAL ATRIAL FIBRILLATION (10) Upper gastrointestinal bleeding Code(s): K92.2 - GASTROINTESTINAL HEMORRHAGE, UNSPECIFIED Assessment/Plan 1. UGI bleed with underlying h/o Martinez's esophagus, PUD r/o MWT 2. CAD angina pectoris 3. 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 Paroxysmal atrial fibrillation [id number] score of 6 on chronic A/C with NOAC's 5. HTN 6. Hypercholesterolemia 7. History of CVA 8. Hypothyroidism 9. Dementia PLAN: 1. Continue Toprol XL 50 qd 2. Continue Norvasc 10 qd 3. Continue Altace 10 qd 4. Continue Imdur 30 qd 5. Continue Lipitor 40 qhs 6. Hold Eliquis 5 bid pending EGD 7. Transfuse for Hgb<9, Protonix gtt 8. May proceed with EGD from CV standpoint, thank you for consultative opportunity
[2017-08-22 16:24] LABS: HEMATOCRIT 29.1 % (32.4-45.2); HEMOGLOBIN 9.4 GM/dL (10.7-15.3); MCHC 32.2 g/dl (32.0-36.0); MEAN CELL VOLUME 93.1 fl (80-96); MEAN PLT VOLUME 9.3 fl (7.5-11.1); PLATELET COUNT 217 K/MM3 (134-434); RBC 3.13 M/mm3 (3.60-5.2); RDW 14.8 % (11.6-15.6); WHITE BLOOD COUNT 10.2 K/mm3 (4.0-10.0)
--- NOTE | 2017-08-22 17:02 | CONSULT ---
Consult Consult Specialty:: PULM/CCM Referred by:: JAMEL Reason for Consultation:: ICU / GI Bleed - History of Present Illness Chief Complaint: GI Bleed History of Present Illness: 87 F, resident of [facility]. Past medical history of dementia, HTN, high cholesterol, Paroxysmal AFib on Eliquis, Martinez's esophagus and PUD. Admitted via the ER for reported coffee ground emesis/ upper GI bleeding. H&H have appeared to remain relatively stable. Hemodynamics have also remained stable. 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) Cardio/Vascular: Yes: AFIB, HTN, Hyperlipdemia Gastrointestinal: Yes: Peptic Ulcer Disease Endocrine: Yes: Hypothyroidism - Past Surgical History Past Surgical History: Yes: Cholecystectomy - Alcohol/Substance Use Hx Alcohol Use: No History of Substance Use: reports: None - Smoking History Smoking history: Never smoked Have you smoked in the past 12 months: No Aproximately how many cigarettes per day: 0 If you are a former smoker, when did you quit?: 1975 - Social History ADL: Support Services History of Recent Travel: No Home Medications - Allergies Allergies/Adverse Reactions: Allergies Allergy/AdvReac Type Severity Reaction Status Date / Time No Known Allergies Allergy Verified 08/22/17 02:27 - Home Medications Home Medications: Ambulatory Orders Acetaminophen 325 mg PO PRN 08/22/17 Amlodipine Besylate 10 mg PO DAILY 08/22/17 Atorvastatin Ca [Lipitor] 40 mg PO HS 08/22/17 Calcium Carbonate/Vitamin D3 [Calcium 500 + Vit D3 400 Tab] 1 each PO DAILY Citalopram Hydrobromide [Celexa -] 40 mg PO DAILY 08/22/17 Divalproex Sodium 125 mg PO DAILY 08/22/17 Isosorbide Mononitrate [Isosorbide Mononitrate ER] 30 mg PO DAILY 08/22/17 Levetiracetam [Keppra] 750 mg PO DAILY 08/22/17 Memantine HCl 10 mg PO DAILY 08/22/17 Multivitamin [Multiple Vitamins] 1 each PO DAILY 08/22/17 Quetiapine Fumarate [Seroquel] 50 mg PO BID 08/22/17 Ramipril 10 mg PO DAILY 08/22/17 Rivastigmine Tartrate [Rivastigmine] 4.5 mg PO DAILY 08/22/17 Review of Systems Unable to obtain ROS, reason: cannot provide Physical Exam Vital Signs: Vital Signs Temperature 99.1 F 08/22/17 08:52 Pulse Rate 93 H 08/22/17 13:24 Respiratory Rate 18 08/22/17 13:24 Blood Pressure 104/64 08/22/17 13:24 O2 Sat by Pulse Oximetry (%) 95 08/22/17 13:24 Constitutional: Yes: No Distress, Calm, Thin Eyes: Yes: Conjunctiva Clear, EOM Intact HENT: Yes: Atraumatic, Normocephalic Neck: Yes: Supple, Trachea Midline Cardiovascular: Yes: Pulse Irregular Respiratory: Yes: On Nasal O2. No: Accessory Muscle Use, Rales, Rhonchi, Stridor, Tachypnea, Wheezes Gastrointestinal: Yes: Normal Bowel Sounds, Soft Musculoskeletal: Yes: WNL Extremities: Yes: WNL Edema: No Peripheral Pulses WNL: Yes Integumentary: Yes: WNL Neurological: Yes: Confusion, Lethargy Labs: CBC, BMP 08/22/17 13:05 08/22/17 03:50 Imaging - Results Chest X-ray: Report Reviewed, Image Reviewed Problem List - Problems (1) Coffee ground emesis Code(s): K92.0 - HEMATEMESIS (2) Dementia with behavioral disturbance Code(s): F03.91 - UNSPECIFIED DEMENTIA WITH BEHAVIORAL DISTURBANCE Qualifiers: Dementia type: unspecified type Qualified Code(s): F03.91 - Unspecified dementia with behavioral disturbance (3) GIB (gastrointestinal bleeding) Code(s): K92.2 - GASTROINTESTINAL HEMORRHAGE, UNSPECIFIED Qualifiers: GI bleed type/associated pathology: gastrointestinal hemorrhage with hematemesis Qualified Code(s): K92.0 - Hematemesis (4) Peptic ulcer disease Code(s): K27.9 - PEPTIC ULC, SITE UNSP, UNSP AC OR CHR, W/O HEMOR OR PERF (5) Seizure disorder Code(s): G40.909 - EPILEPSY, UNSP, NOT INTRACTABLE, WITHOUT STATUS EPILEPTICUS (6) Chronic atrial fibrillation Code(s): I48.2 - CHRONIC ATRIAL FIBRILLATION (7) Dementia Code(s): F03.90 - UNSPECIFIED DEMENTIA WITHOUT BEHAVIORAL DISTURBANCE Qualifiers: Dementia type: unspecified type Dementia behavioral disturbance: without behavioral disturbance Qualified Code(s): F03.90 - Unspecified dementia without behavioral disturbance (8) HTN (hypertension) Code(s): I10 - ESSENTIAL (PRIMARY) HYPERTENSION Qualifiers: Hypertension type: essential hypertension Qualified Code(s): I10 - Essential (primary) hypertension (9) Hyperlipidemia Code(s): E78.5 - HYPERLIPIDEMIA, UNSPECIFIED Qualifiers: Hyperlipidemia type: pure hypercholesterolemia Qualified Code(s): E78.00 - Pure hypercholesterolemia, unspecified; E78.0 - Pure hypercholesterolemia (10) Hypothyroidism Code(s): E03.9 - HYPOTHYROIDISM, UNSPECIFIED Qualifiers: Hypothyroidism type: unspecified Qualified Code(s): E03.9 - Hypothyroidism , unspecified (11) Paroxysmal atrial fibrillation Code(s): I48.0 - PAROXYSMAL ATRIAL FIBRILLATION Assessment/Plan Follow H&H PPI Normal transfusion thresholds Aspiration precautions O2 as needed GI evaluation noted IVF As her hemodynamics and H&H have been stable, she can reliably be monitored on the Cardiac Telemetry Unit Dr Hansen Critical care time spent in reviewing chart, evaluating patient and formulating plan - 35 minutes.
[2017-08-22] MEDS ORDERED: ALPRAZolam 0.25 MG TABLET ONE (23:33)
[2017-08-22] MEDS ORDERED: ALPRAZolam 0.25 MG TABLET PO STA (23:38)
[2017-08-23] MEDS: PANTOPRAZOLE SODIUM 160 MG in DEXTROSE 5%-WATER - 290 ML IVPB SCH (03:25)
[2017-08-23 09:07] LABS: HEMATOCRIT 30.3 % (32.4-45.2); HEMOGLOBIN 9.6 GM/dL (10.7-15.3); MCH 29.6 pg (25.7-33.7); MCHC 31.8 g/dl (32.0-36.0); MEAN CELL VOLUME 93.1 fl (80-96); MEAN PLT VOLUME 9.2 fl (7.5-11.1); PLATELET COUNT 215 K/MM3 (134-434); RBC 3.25 M/mm3 (3.60-5.2); RDW 14.4 % (11.6-15.6); WHITE BLOOD COUNT 10.8 K/mm3 (4.0-10.0)
[2017-08-23 09:21] LABS: ALBUMIN 2.6 g/dl (3.4-5.0); ANION GAP 5 (8-16); BLOOD UREA NITROGEN 35 mg/dL (7-18); CALCIUM 8.2 mg/dL (8.5-10.1); CHLORIDE 109 mmol/L (98-107); CO2 31 mmol/L (21-32); CREATININE 0.6 mg/dL (0.55-1.02); GLUCOSE,RANDOM 96 mg/dL (74-106); POTASSIUM 3.6 mmol/L (3.5-5.1); SGOT/AST 24 U/L (15-37); SGPT/ALT 15 U/L (12-78); SODIUM 145 mmol/L (136-145)
[2017-08-23 09:22] LABS: ALK PHOS 89 U/L (45-117); BILIRUBIN,TOTAL 0.5 mg/dL (0.2-1.0)
--- NOTE | 2017-08-23 10:21 | PN ---
Progress Note, Physician History of Present Illness: No further coffee ground emesis and melena, plan for EGD, possibility of lashawn cruz tears, Hgb stable. I - Current Medication List Current Medications: Active Medications Acetaminophen (Tylenol -) 325 mg PO DAILY PRN PRN Reason: PAIN Citalopram Hydrobromide (Celexa -) 40 mg PO DAILY [facility] Last Admin: 08/22/17 13:17 Dose: 40 mg Divalproex Sodium (Depakote -) 125 mg PO DAILY [facility] Last Admin: 08/22/17 13:18 Dose: 125 mg Pantoprazole Sodium 160 mg/ (Dextrose) 290 mls @ 14.5 mls/hr IVPB Q20H [facility] Last Admin: 08/23/17 03:25 Dose: 14.5 mls/hr Sodium Chloride (Normal Saline -) 1,000 mls @ 50 mls/hr IV ASDIR [facility] Stop: 08/23/17 12:54 Last Admin: 08/22/17 13:17 Dose: 50 mls/hr Isosorbide Mononitrate (Imdur -) 30 mg PO DAILY [facility] Last Admin: 08/22/17 13:18 Dose: Not Given Levetiracetam (Keppra -) 750 mg PO DAILY [facility] Last Admin: 08/22/17 13:18 Dose: 750 mg Quetiapine Fumarate (Seroquel -) 50 mg PO BID [facility] Last Admin: 08/22/17 22:11 Dose: 50 mg - Objective Vital Signs: Vital Signs Temperature 97.8 F 08/23/17 06:00 Pulse Rate 76 08/23/17 06:00 Respiratory Rate 20 08/23/17 06:00 Blood Pressure 108/60 08/23/17 06:00 O2 Sat by Pulse Oximetry (%) 92 L 08/23/17 09:35 Constitutional: Yes: No Distress, Calm Neck: Yes: Supple Cardiovascular: Yes: Regular Rate and Rhythm Respiratory: Yes: Regular, Diminished Gastrointestinal: Yes: Soft, Hypoactive Bowel Sounds Edema: No Labs: CBC, BMP 08/23/17 08:45 08/23/17 08:45 INR, PTT INR 1.19 (0.82-1.09) H 08/22/17 03:50 Problem List - Problems (1) Pre-procedural cardiovascular examination Code(s): Z01.810 - ENCOUNTER FOR PREPROCEDURAL CARDIOVASCULAR EXAMINATION (2) Coffee ground emesis Code(s): K92.0 - HEMATEMESIS (3) Peptic ulcer disease Code(s): K27.9 - PEPTIC ULC, SITE UNSP, UNSP AC OR CHR, W/O HEMOR OR PERF (4) Dementia Code(s): F03.90 - UNSPECIFIED DEMENTIA WITHOUT BEHAVIORAL DISTURBANCE Qualifiers: Dementia type: unspecified type Dementia behavioral disturbance: without behavioral disturbance Qualified Code(s): F03.90 - Unspecified dementia without behavioral disturbance (5) Diastolic dysfunction without heart failure Code(s): I51.9 - HEART DISEASE, UNSPECIFIED (6) HTN (hypertension) Code(s): I10 - ESSENTIAL (PRIMARY) HYPERTENSION Qualifiers: Hypertension type: essential hypertension Qualified Code(s): I10 - Essential (primary) hypertension (7) Hyperlipidemia Code(s): E78.5 - HYPERLIPIDEMIA, UNSPECIFIED Qualifiers: Hyperlipidemia type: pure hypercholesterolemia Qualified Code(s): E78.00 - Pure hypercholesterolemia, unspecified; E78.0 - Pure hypercholesterolemia (8) Hypothyroidism Code(s): E03.9 - HYPOTHYROIDISM, UNSPECIFIED Qualifiers: Hypothyroidism type: unspecified Qualified Code(s): E03.9 - Hypothyroidism , unspecified (9) Paroxysmal atrial fibrillation Code(s): I48.0 - PAROXYSMAL ATRIAL FIBRILLATION (10) Upper gastrointestinal bleeding Code(s): K92.2 - GASTROINTESTINAL HEMORRHAGE, UNSPECIFIED Assessment/Plan 1. UGI bleed with underlying h/o Martinez's esophagus, PUD r/o MWT 2. CAD angina pectoris 3. 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 Paroxysmal atrial fibrillation [id number] score of 6 on chronic A/C with NOAC's 5. HTN 6. Hypercholesterolemia 7. History of CVA 8. Hypothyroidism 9. Dementia PLAN: 1. Continue Toprol XL 50 qd 2. Continue Norvasc 10 qd 3. Continue Altace 10 qd 4. Continue Imdur 30 qd 5. Continue Lipitor 40 qhs 6. Hold Eliquis 5 bid pending EGD 7. Transfuse for Hgb<9, Protonix gtt 8. May proceed with EGD from CV standpoint
[2017-08-23] MEDS: CITALOPRAM HYDROBROMIDE 20 MG TABLET (FP) PO SCH (10:39)
[2017-08-23] MEDS: DIVALPROEX SODIUM 125 MG TABLET E.C. (FP) PO SCH (10:40)
[2017-08-23] MEDS: QUEtiapine FUMARATE 25 MG TABLET (FP) PO SCH ×2 (10:40→22:07)
[2017-08-23] MEDS: levETIRAcetam 250 MG TABLET (FP) PO SCH (10:41)
[2017-08-23] MEDS: ISOSORBIDE MONONITRATE 30 MG TAB.SR.24H (FP) PO SCH (10:41)
--- NOTE | 2017-08-23 12:00 | PN ---
GI Progress Note Subjective: GI NOte: The Hb has fortunately stabilized. No further vomiting. No melena, Denies abdominal pain or nausea. Daughter Noemí is at the bedside. I have again discussed the risks and benefits of upper endoscopy and anesthesia including worsening of her dementia, perforation and hemorrhage. After discussion with Noemí the decision has been made to reserve EGD for life threatening hemorrhage. We also discussed the pos and cons of chronic anticoagulation with Javier's backround of previous bleeding and Hammer's esophagus. We mutually agree to withold anticogulation indefinitely as the risks of CVA due to bleeding outweight the risks of an embolic CVA. - Objective Vital Signs: Vital Signs Temperature 97.8 F 08/23/17 06:00 Pulse Rate 76 08/23/17 06:00 Respiratory Rate 20 08/23/17 06:00 Blood Pressure 108/60 08/23/17 06:00 O2 Sat by Pulse Oximetry (%) 92 L 08/23/17 09:35 Laboratory Tests 02/25/11 08/12/13 03/26/17 22:45 07:55 15:46 Hgb 12.8 12.5 12.0 08/22/17 08/22/17 08/22/17 03:50 08:38 13:05 Hgb 10.1 L D 9.7 L 9.4 L 08/23/17 08:45 Hgb 9.6 L Constitutional: No Distress Eyes: Yes: Conjunctiva Clear ...Auscultate: Yes: Normoactive Bowel Sounds ...Palpate: Yes: Soft, Other (nontender) ...Rectal Exam: Yes: Guaiac Positive (dried brown guaiac positive stool) Labs: CBC, BMP 08/23/17 08:45 08/23/17 08:45 INR, PTT INR 1.19 (0.82-1.09) H 08/22/17 03:50 Assessment/Plan Clear liquids, advance diet as tolerated Continue PPI drip x 24 hours Do not resume Eliquis ( see discussion) Follow CBCs Problem List - Problems (1) Barretts esophagus Code(s): K22.70 - HAMMER'S ESOPHAGUS WITHOUT DYSPLASIA (2) GERD (gastroesophageal reflux disease) Code(s): K21.9 - GASTRO-ESOPHAGEAL REFLUX DISEASE WITHOUT ESOPHAGITIS (3) GIB (gastrointestinal bleeding) Assessment/Plan: Suspect bleeding is due to erosive gastritis, duodenitis or an ulcer as a Danuta Moya tear would generally present with brisk red hematemesis but the latter cannot be excluded. Given the EGD will be reserved to life threatening hemorrhage and that he bleeding appears to have subsided I will allow clear liquids. The diet can be advanced as tolerated. Continue PPI drip for another 24 hours. As per above discussion would not resume Eliquis. Code(s): K92.2 - GASTROINTESTINAL HEMORRHAGE, UNSPECIFIED Qualifiers: GI bleed type/associated pathology: gastrointestinal hemorrhage with hematemesis Qualified Code(s): K92.0 - Hematemesis
--- NOTE | 2017-08-23 15:57 | PN ---
Progress Note (short form) - Note Progress Note: Remains in the ER. No occult bleeding noted. H & H stable. GI follow up noted. Currently on VM O2. Intake & Output 08/20/17 08/21/17 08/22/17 08/23/17 23:59 23:59 23:59 23:59 Intake Total 774 Balance 774 Weight 150 lb Last Vital Signs Temp Pulse Resp BP Pulse Ox 98.4 F 97 H 18 122/59 95 08/23/17 14:47 08/23/17 14:17 08/23/17 14:17 08/23/17 14:17 08/23/17 14:17 Active Medications Acetaminophen (Tylenol -) 325 mg PO DAILY PRN PRN Reason: PAIN Citalopram Hydrobromide (Celexa -) 40 mg PO DAILY [facility] BEDS AT THE [facility] Last Admin: 08/23/17 10:39 Dose: 40 mg Divalproex Sodium (Depakote -) 125 mg PO DAILY [facility]CLUDE 234 BEDS AT THE [facility] Last Admin: 08/23/17 10:40 Dose: 125 mg Pantoprazole Sodium 160 mg/ (Dextrose) 290 mls @ 14.5 mls/hr IVPB Q20H [facility] 234 BEDS AT THE [facility] Last Admin: 08/23/17 03:25 Dose: 14.5 mls/hr Isosorbide Mononitrate (Imdur -) 30 mg PO DAILY [facility]CLUDE 234 BEDS AT THE [facility] Last Admin: 08/23/17 10:41 Dose: 30 mg Levetiracetam (Keppra -) 750 mg PO DAILY [facility]CLUDE 234 BEDS AT THE [facility] Last Admin: 08/23/17 10:41 Dose: 750 mg Quetiapine Fumarate (Seroquel -) 50 mg PO BID [facility]S INCLUDE 234 BEDS AT THE [facility] Last Admin: 08/23/17 10:40 Dose: 50 mg Constitutional: Yes: NAD on VM O2 Eyes: Yes: Conjunctiva Clear, EOM Intact HENT: Yes: Atraumatic, Normocephalic Neck: Yes: Supple, Trachea Midline Cardiovascular: Yes: Pulse Irregular Respiratory: Yes: On VM O2, scattered rhonchi. No: Accessory Muscle Use, Rales , Rhonchi, Stridor, Tachypnea, Wheezes Gastrointestinal: Yes: Normal Bowel Sounds, Soft Musculoskeletal: Yes: WNL Extremities: Yes: WNL Edema: No Peripheral Pulses WNL: Yes Integumentary: Yes: WNL Neurological: Yes: Confusion, Lethargy Labs: Laboratory Results - last 24 hr 08/22/17 08/23/17 08/23/17 13:05 08:45 08:45 WBC 10.2 H 10.8 H RBC 3.13 L 3.25 L Hgb 9.4 L 9.6 L Hct 29.1 L 30.3 L MCV 93.1 93.1 MCH 30.0 29.6 MCHC 32.2 31.8 L RDW 14.8 14.4 Plt Count 217 215 MPV 9.3 9.2 Sodium 145 Potassium 3.6 Chloride 109 H Carbon Dioxide 31 Anion Gap 5 L BUN 35 H D Creatinine 0.6 Creat Clearance w eGFR > 60 Random Glucose 96 Calcium 8.2 L Total Bilirubin 0.5 D AST 24 ALT 15 Alkaline Phosphatase 89 Total Protein 7.0 Albumin 2.6 L Problem List - Problems (1) Coffee ground emesis Code(s): K92.0 - HEMATEMESIS (2) Dementia with behavioral disturbance Code(s): F03.91 - UNSPECIFIED DEMENTIA WITH BEHAVIORAL DISTURBANCE Qualifiers: Dementia type: unspecified type Qualified Code(s): F03.91 - Unspecified dementia with behavioral disturbance (3) GIB (gastrointestinal bleeding) Code(s): K92.2 - GASTROINTESTINAL HEMORRHAGE, UNSPECIFIED Qualifiers: GI bleed type/associated pathology: gastrointestinal hemorrhage with hematemesis Qualified Code(s): K92.0 - Hematemesis (4) Peptic ulcer disease Code(s): K27.9 - PEPTIC ULC, SITE UNSP, UNSP AC OR CHR, W/O HEMOR OR PERF (5) Seizure disorder Code(s): G40.909 - EPILEPSY, UNSP, NOT INTRACTABLE, WITHOUT STATUS EPILEPTICUS (6) Chronic atrial fibrillation Code(s): I48.2 - CHRONIC ATRIAL FIBRILLATION (7) Dementia Code(s): F03.90 - UNSPECIFIED DEMENTIA WITHOUT BEHAVIORAL DISTURBANCE Qualifiers: Dementia type: unspecified type Dementia behavioral disturbance: without behavioral disturbance Qualified Code(s): F03.90 - Unspecified dementia without behavioral disturbance (8) HTN (hypertension) Code(s): I10 - ESSENTIAL (PRIMARY) HYPERTENSION Qualifiers: Hypertension type: essential hypertension Qualified Code(s): I10 - Essential (primary) hypertension (9) Hyperlipidemia Code(s): E78.5 - HYPERLIPIDEMIA, UNSPECIFIED Qualifiers: Hyperlipidemia type: pure hypercholesterolemia Qualified Code(s): E78.00 - Pure hypercholesterolemia, unspecified; E78.0 - Pure hypercholesterolemia (10) Hypothyroidism Code(s): E03.9 - HYPOTHYROIDISM, UNSPECIFIED Qualifiers: Hypothyroidism type: unspecified Qualified Code(s): E03.9 - Hypothyroidism , unspecified (11) Paroxysmal atrial fibrillation Code(s): I48.0 - PAROXYSMAL ATRIAL FIBRILLATION Assessment/Plan Follow H&H PPI Normal transfusion thresholds Aspiration precautions O2 as needed GI evaluation noted IVF As her hemodynamics and H&H have been stable, she can reliably be monitored on the Cardiac Telemetry Unit Dr Hansen Problem List - Problems (1) Coffee ground emesis Code(s): K92.0 - HEMATEMESIS (2) Dementia with behavioral disturbance Code(s): F03.91 - UNSPECIFIED DEMENTIA WITH BEHAVIORAL DISTURBANCE Qualifiers: Dementia type: unspecified type Qualified Code(s): F03.91 - Unspecified dementia with behavioral disturbance (3) GIB (gastrointestinal bleeding) Code(s): K92.2 - GASTROINTESTINAL HEMORRHAGE, UNSPECIFIED Qualifiers: GI bleed type/associated pathology: gastrointestinal hemorrhage with hematemesis Qualified Code(s): K92.0 - Hematemesis (4) Peptic ulcer disease Code(s): K27.9 - PEPTIC ULC, SITE UNSP, UNSP AC OR CHR, W/O HEMOR OR PERF (5) Seizure disorder Code(s): G40.909 - EPILEPSY, UNSP, NOT INTRACTABLE, WITHOUT STATUS EPILEPTICUS (6) Chronic atrial fibrillation Code(s): I48.2 - CHRONIC ATRIAL FIBRILLATION (7) Dementia Code(s): F03.90 - UNSPECIFIED DEMENTIA WITHOUT BEHAVIORAL DISTURBANCE Qualifiers: Dementia type: unspecified type Dementia behavioral disturbance: without behavioral disturbance Qualified Code(s): F03.90 - Unspecified dementia without behavioral disturbance (8) HTN (hypertension) Code(s): I10 - ESSENTIAL (PRIMARY) HYPERTENSION Qualifiers: Hypertension type: essential hypertension Qualified Code(s): I10 - Essential (primary) hypertension (9) Hyperlipidemia Code(s): E78.5 - HYPERLIPIDEMIA, UNSPECIFIED Qualifiers: Hyperlipidemia type: pure hypercholesterolemia Qualified Code(s): E78.00 - Pure hypercholesterolemia, unspecified; E78.0 - Pure hypercholesterolemia (10) Hypothyroidism Code(s): E03.9 - HYPOTHYROIDISM, UNSPECIFIED Qualifiers: Hypothyroidism type: unspecified Qualified Code(s): E03.9 - Hypothyroidism , unspecified (11) Paroxysmal atrial fibrillation Code(s): I48.0 - PAROXYSMAL ATRIAL FIBRILLATION
--- NOTE | 2017-08-23 16:53 | PN ---
Progress Note, Physician History of Present Illness: Pt is Sleepy (s/p Ativan in ER, for aggitation), cannot provide ROS - Current Medication List Current Medications: Active Medications Acetaminophen (Tylenol -) 325 mg PO DAILY PRN PRN Reason: PAIN Citalopram Hydrobromide (Celexa -) 40 mg PO DAILY [facility] Last Admin: 08/23/17 10:39 Dose: 40 mg Divalproex Sodium (Depakote -) 125 mg PO DAILY [facility] Last Admin: 08/23/17 10:40 Dose: 125 mg Pantoprazole Sodium 160 mg/ (Dextrose) 290 mls @ 14.5 mls/hr IVPB Q20H [facility] Last Admin: 08/23/17 03:25 Dose: 14.5 mls/hr Isosorbide Mononitrate (Imdur -) 30 mg PO DAILY [facility] Last Admin: 08/23/17 10:41 Dose: 30 mg Levetiracetam (Keppra -) 750 mg PO DAILY [facility] Last Admin: 08/23/17 10:41 Dose: 750 mg Quetiapine Fumarate (Seroquel -) 50 mg PO BID [facility] Last Admin: 08/23/17 10:40 Dose: 50 mg - Objective Vital Signs: Vital Signs Temperature 98.4 F 08/23/17 14:47 Pulse Rate 97 H 08/23/17 14:17 Respiratory Rate 18 08/23/17 14:17 Blood Pressure 122/59 08/23/17 14:17 O2 Sat by Pulse Oximetry (%) 95 08/23/17 14:17 Constitutional: Yes: No Distress, Calm Cardiovascular: Yes: Regular Rate and Rhythm, S1, S2 Respiratory: Yes: Regular, Other (Coarse BS bilat.) Gastrointestinal: Yes: Normal Bowel Sounds, Soft. No: Palpable Mass Edema: No Labs: CBC, BMP 08/23/17 08:45 08/23/17 08:45 INR, PTT INR 1.19 (0.82-1.09) H 08/22/17 03:50 Problem List - Problems (1) Coffee ground emesis Code(s): K92.0 - HEMATEMESIS (2) GIB (gastrointestinal bleeding) Code(s): K92.2 - GASTROINTESTINAL HEMORRHAGE, UNSPECIFIED Qualifiers: GI bleed type/associated pathology: gastrointestinal hemorrhage with hematemesis Qualified Code(s): K92.0 - Hematemesis (3) Peptic ulcer disease Code(s): K27.9 - PEPTIC ULC, SITE UNSP, UNSP AC OR CHR, W/O HEMOR OR PERF (4) Dementia with behavioral disturbance Code(s): F03.91 - UNSPECIFIED DEMENTIA WITH BEHAVIORAL DISTURBANCE Qualifiers: Dementia type: unspecified type Qualified Code(s): F03.91 - Unspecified dementia with behavioral disturbance (5) Paroxysmal atrial fibrillation Code(s): I48.0 - PAROXYSMAL ATRIAL FIBRILLATION (6) Hypothyroidism Code(s): E03.9 - HYPOTHYROIDISM, UNSPECIFIED Qualifiers: Hypothyroidism type: unspecified Qualified Code(s): E03.9 - Hypothyroidism , unspecified (7) HTN (hypertension) Code(s): I10 - ESSENTIAL (PRIMARY) HYPERTENSION Qualifiers: Hypertension type: essential hypertension Qualified Code(s): I10 - Essential (primary) hypertension (8) Hyperlipidemia Code(s): E78.5 - HYPERLIPIDEMIA, UNSPECIFIED Qualifiers: Hyperlipidemia type: pure hypercholesterolemia Qualified Code(s): E78.00 - Pure hypercholesterolemia, unspecified; E78.0 - Pure hypercholesterolemia (9) Seizure disorder Code(s): G40.909 - EPILEPSY, UNSP, NOT INTRACTABLE, WITHOUT STATUS EPILEPTICUS Assessment/Plan IV PPI Serial CBC, monitor H/H; pt might xiomy PRBC Tx. Monitor fever curve, WBC- pt at risk of aspiration CCM, Cardio, GI, Consults appreciated NPO except meds Admitted to monitor bed Case was d/w pt's nurse.
[2017-08-24] MEDS: PANTOPRAZOLE SODIUM 160 MG in DEXTROSE 5%-WATER - 290 ML IVPB SCH (04:59)
[2017-08-24] MEDS ORDERED: LORazepam 2 MG/ML SDV VIAL IVPUSH ONE (07:11)
[2017-08-24 07:26] LABS: BASO % 0.5 % (0-2.0); EOS % 13.8 % (0-4.5); HEMOGLOBIN 9.3 GM/dL (10.7-15.3); LYMPH % 14.3 % (8-40); MCH 29.8 pg (25.7-33.7); MCHC 31.9 g/dl (32.0-36.0); MEAN CELL VOLUME 93.6 fl (80-96); MEAN PLT VOLUME 9.5 fl (7.5-11.1); MONO % 9.2 % (3.8-10.2); NEUT % 62.2 % (42.8-82.8); PLATELET COUNT 220 K/MM3 (134-434); RDW 14.3 % (11.6-15.6); RETICULOCYTES 2.07 % (0.5-1.5); WHITE BLOOD COUNT 9.5 K/mm3 (4.0-10.0)
[2017-08-24 07:59] LABS: ALBUMIN 2.3 g/dl (3.4-5.0); ANION GAP 7 (8-16); BLOOD UREA NITROGEN 32 mg/dL (7-18); CALCIUM 8.3 mg/dL (8.5-10.1); CHLORIDE 107 mmol/L (98-107); CO2 32 mmol/L (21-32); CREATININE 0.7 mg/dL (0.55-1.02); GLUCOSE,RANDOM 86 mg/dL (74-106); POTASSIUM 3.8 mmol/L (3.5-5.1); SGOT/AST 26 U/L (15-37); SGPT/ALT 14 U/L (12-78); SODIUM 146 mmol/L (136-145)
--- NOTE | 2017-08-24 07:59 | PN ---
Progress Note (short form) - Note Progress Note: Chief Complaint: Events noted, notes reviewed, remains confused, disoriented and agitated, denies any chest pain or dyspnea History of Present Illness: Seen and examined on telemetry. Events noted, notes reviewed, remains confused, disoriented and agitated, denies any chest pain or dyspnea GI note noted and appreciated Medications: Current Medications Acetaminophen (Tylenol -) 325 mg PO DAILY PRN PRN Reason: PAIN Citalopram Hydrobromide (Celexa -) 40 mg PO DAILY [facility] Last Admin: 08/24/17 10:51 Dose: 40 mg Divalproex Sodium (Depakote -) 125 mg PO DAILY [facility] Last Admin: 08/24/17 10:51 Dose: 125 mg Pantoprazole Sodium 160 mg/ (Dextrose) 290 mls @ 14.5 mls/hr IVPB Q20H [facility] Last Admin: 08/24/17 04:59 Dose: Not Given Isosorbide Mononitrate (Imdur -) 30 mg PO DAILY [facility] Last Admin: 08/24/17 10:51 Dose: 30 mg Levetiracetam (Keppra -) 750 mg PO DAILY [facility] Last Admin: 08/24/17 10:50 Dose: 750 mg Quetiapine Fumarate (Seroquel -) 50 mg PO BID [facility] Last Admin: 08/24/17 10:51 Dose: 50 mg Review of Systems Unable to Obtain Vital Signs: Last Vital Signs Temp Pulse Resp BP Pulse Ox 97.1 F L 78 20 136/82 94 L 08/24/17 05:46 08/24/17 05:46 08/24/17 05:46 08/24/17 05:46 08/23/17 22:00 Intake & Output 08/21/17 08/22/17 08/23/17 08/24/17 23:59 23:59 23:59 23:59 Intake Total 1454 43.5 Balance 1454 43.5 Weight 150 lb 150 lb Constitutional: No Distress Neck: Supple Negative JVD No Bruit Respiratory: Clear to A&P Bilaterally Cardiovascular: S1 S2 Irregularly Irregular Garde 1-2/6 NAVDEEP Gastrointestinal: Soft Benign Normal Bowel Sounds Ext: Negative Edema Labs: CBC, BMP 08/24/17 06:30 08/24/17 06:30 Assessment/Plan ASSESSMENT: 1. Upper gastro-intestinal bleed with underlying history of Martinez's esophagus , peptic ulcer disease R/O MWT 2. CAD angina pectoris, stable 3. Diastolic LV dysfunction with class I NYHA classification LV failure, compensated/euvolemic 4. Paroxysmal atrial fibrillation [id number] score of 6 on chronic A/C with NOAC's, currently on hold 5. HTN 6. Hypercholesterolemia 7. History of CVA 8. Organic brain syndrome/dementia 9. Hypothyroidism 10. Anemia PLAN: 1. Resume B-Blockers/Toprol XL unless contraindicated, hemodynamics permitting 2. Resume Altace unless contraindicated, hemodynamics permitting 3. Continue Imdur 4. A/C with NOAC's/Eliquis is to be deferred, ideally therapy resumption to be considered once the above noted pathology resolves and not absolutely contraindicated, since patient's [id number] score of 6 4. EGD being deferred unless bleeding recurs and s life threatening/associated hemodynamic instability Obi Broussard M.D.
[2017-08-24 08:01] LABS: ALK PHOS 89 U/L (45-117); BILIRUBIN,TOTAL 0.5 mg/dL (0.2-1.0); TOT PROT 6.7 g/dl (6.4-8.2)
--- NOTE | 2017-08-24 09:31 | PN ---
Progress Note, Physician Chief Complaint: in bed awake alert NAD no new c/o; advanced dementia hx limited - Current Medication List Current Medications: Active Medications Acetaminophen (Tylenol -) 325 mg PO DAILY PRN PRN Reason: PAIN Citalopram Hydrobromide (Celexa -) 40 mg PO DAILY [facility] Last Admin: 08/23/17 10:39 Dose: 40 mg Divalproex Sodium (Depakote -) 125 mg PO DAILY [facility] Last Admin: 08/23/17 10:40 Dose: 125 mg Pantoprazole Sodium 160 mg/ (Dextrose) 290 mls @ 14.5 mls/hr IVPB Q20H [facility] Last Admin: 08/24/17 04:59 Dose: Not Given Isosorbide Mononitrate (Imdur -) 30 mg PO DAILY [facility] Last Admin: 08/23/17 10:41 Dose: 30 mg Levetiracetam (Keppra -) 750 mg PO DAILY [facility] Last Admin: 08/23/17 10:41 Dose: 750 mg Quetiapine Fumarate (Seroquel -) 50 mg PO BID [facility] Last Admin: 08/23/17 22:07 Dose: Not Given - Objective Vital Signs: Vital Signs Temperature 97.1 F L 08/24/17 05:46 Pulse Rate 78 08/24/17 05:46 Respiratory Rate 20 08/24/17 05:46 Blood Pressure 136/82 08/24/17 05:46 O2 Sat by Pulse Oximetry (%) 94 L 08/23/17 22:00 Constitutional: Yes: No Distress, Calm Eyes: Yes: Conjunctiva Clear HENT: Yes: Atraumatic Neck: Yes: Supple Cardiovascular: Yes: Regular Rate and Rhythm Respiratory: Yes: CTA Bilaterally Gastrointestinal: Yes: Soft. No: Distention, Tenderness Genitourinary: No: CVA Tenderness - Left, CVA Tenderness - Right Musculoskeletal: No: Joint Stiffness, Joint Swelling Extremities: No: Cold, Cool Edema: No Integumentary: No: Rash, Venous Stasis Changes Neurological: Yes: Alert. No: Oriented ...Motor Strength: WNL (moves U/LE bilat nonfocal) Psychiatric: Yes: Alert. No: Oriented, Agitated Labs: CBC, BMP 08/24/17 06:30 08/24/17 06:30 INR, PTT INR 1.19 (0.82-1.09) H 08/22/17 03:50 - ....Imaging Other: Report Reviewed Assessment/Plan ASHD PAFib PUD COPD advanced dementia GI bleed anemia, on blood thinners hold eliquis for now; further w/u and tx per Fer pulshanna f./u falls aspiration DVT Pfx d.w pt and staff; will call son
[2017-08-24] MEDS ORDERED: PT OWN MED DRAWER 7, Y5N ONE (10:37)
[2017-08-24] MEDS: levETIRAcetam 250 MG TABLET (FP) PO SCH (10:50)
[2017-08-24] MEDS: QUEtiapine FUMARATE 25 MG TABLET (FP) PO SCH (10:51)
[2017-08-24] MEDS: ISOSORBIDE MONONITRATE 30 MG TAB.SR.24H (FP) PO SCH (10:51)
[2017-08-24] MEDS: DIVALPROEX SODIUM 125 MG TABLET E.C. (FP) PO SCH (10:51)
[2017-08-24] MEDS: CITALOPRAM HYDROBROMIDE 20 MG TABLET (FP) PO SCH (10:51)
[2017-08-24] MEDS ORDERED: ACETAMINOPHEN 325 MG TABLET (FP) PO PRN (16:44)
--- NOTE | 2017-08-24 18:24 | PN ---
GI Progress Note Subjective: GI NOte: No further hematemesis. Bleeding appears to have stopped. - Objective Vital Signs: Vital Signs Temperature 98.0 F 08/24/17 14:00 Pulse Rate 75 08/24/17 10:00 Respiratory Rate 20 08/24/17 14:00 Blood Pressure 106/55 08/24/17 14:00 O2 Sat by Pulse Oximetry (%) 97 08/24/17 10:00 Laboratory Tests 08/22/17 08/22/17 08/24/17 03:50 13:05 06:30 Hgb 10.1 L D 9.4 L 9.3 L Constitutional: No Distress ...Auscultate: Yes: Normoactive Bowel Sounds ...Palpate: Yes: Soft, Other (nontender) Labs: CBC, BMP 08/24/17 06:30 08/24/17 06:30 INR, PTT INR 1.19 (0.82-1.09) H 08/22/17 03:50 Assessment/Plan Regular diet Stop PPI drip Do not resume Eliquis ( see discussion) Follow CBCs Problem List - Problems (1) Barretts esophagus Code(s): K22.70 - HAMMER'S ESOPHAGUS WITHOUT DYSPLASIA (2) GERD (gastroesophageal reflux disease) Code(s): K21.9 - GASTRO-ESOPHAGEAL REFLUX DISEASE WITHOUT ESOPHAGITIS (3) GIB (gastrointestinal bleeding) Assessment/Plan: Suspect resolved bleeding due to erosive gastritis, duodenitis or an ulcer rather than a Danuta Moya tear. Will advance diet. If tolerated can consider discharge tomorrow from GI perspective if remains stable. EGD will be reserved to life threatening hemorrhage and that he bleeding. Will stop PPI drip. Would not resume Eliquis. Risk of not resuming it was discussed with her daughter yesterday. Code(s): K92.2 - GASTROINTESTINAL HEMORRHAGE, UNSPECIFIED Qualifiers: GI bleed type/associated pathology: gastrointestinal hemorrhage with hematemesis Qualified Code(s): K92.0 - Hematemesis
[2017-08-24] MEDS ORDERED: PANTOPRAZOLE SODIUM 160 MG in DEXTROSE 5%-WATER - 290 ML IVPB SCH (19:00)
[2017-08-24] MEDS: MAG HYDROX/AL HYDROX/SIMETH 30 ML UNIT-DOSE CUP PO SCH ×2 (20:13→22:21)
[2017-08-24] MEDS: PANTOPRAZOLE 40 MG TABLET (FP) PO SCH (22:21)
[2017-08-24] MEDS: QUEtiapine FUMARATE 50 MG TABLET PO SCH (22:22)
[2017-08-25 06:10] LABS: SERUM IRON SATURATION 11 % (15-55); TOTAL IRON BINDING CAPACITY 202 ug/dL (250-450); UIBC 180 ug/dL (118-369)
--- NOTE | 2017-08-25 07:15 | DS ---
Physical Examination Vital Signs: Vital Signs Temperature 97.8 F 08/24/17 22:00 Pulse Rate 80 08/24/17 22:00 Respiratory Rate 20 08/24/17 22:00 Blood Pressure 134/78 08/24/17 22:00 O2 Sat by Pulse Oximetry (%) 96 08/24/17 22:00 Findings/Remarks: in bed awake alert NAD no new c/o H&H stable no further bleed consults reviewed and d/w son d/w GI dr Griggs; cleared for DC to NH; no EGD/ colonoscopy at this point given multiple comorbidities and risks of the invasicve procedures per GI; GI recommends holding anticoagulation indefinitely (eliquis) since h/o prior and current GI bleeds and multiple comorbidities, I d/w son HCP risks of bleed with eliquis and risks of clotting without anticoags (like TN, CVA, PE, DVT) and seems that risk of bleeding is higher than risk of clotting W/o AC at this point; to f/u in NH for future AC treatemnt if possible (like sq heparin or restart eliquis) pt has sun down sd very agitated at night; gets seroquel, then sleepy in am; needs sometimes wrists restraints for safety and falls PFX aspiration, decubs DVT pfx d/w pt's son and staff d/w pt can go back to NH; release restraints T time 40 min Constitutional: Yes: No Distress, Calm Eyes: Yes: Conjunctiva Clear HENT: Yes: Atraumatic Neck: Yes: Supple Cardiovascular: Yes: Regular Rate and Rhythm Respiratory: Yes: CTA Bilaterally Gastrointestinal: Yes: Soft. No: Distention, Tenderness Renal/: No: CVA Tenderness - Left, CVA Tenderness - Right Musculoskeletal: No: Joint Stiffness, Joint Swelling Extremities: No: Cold, Cool Edema: No Integumentary: No: Rash, Venous Stasis Changes Neurological: Yes: Alert. No: Oriented ...Motor Strength: WNL Psychiatric: Yes: Alert. No: Oriented, Agitated Labs: CBC, BMP 08/24/17 06:30 08/24/17 06:30 Discharge Summary Reason For Visit: CHRONIC ATRIAL FRIBILLATION,UPPER GASTROINTESTINAL Current Active Problems Barretts esophagus (Acute) Coffee ground emesis (Acute) Dementia with behavioral disturbance (Acute) GERD (gastroesophageal reflux disease) (Acute) GIB (gastrointestinal bleeding) (Acute) Peptic ulcer disease (Acute) Pre-procedural cardiovascular examination (Acute) Seizure disorder (Acute) Procedures: Principal: admitted with coffee grounds emesis, UGI bleed, while on AC eliquis Other Procedures: seen by GI< cardio and Pulm ICU;. AC held; PPI started; H&H stable Hospital Course: stable with above; DC to [facility] and f/u in NH as advised Condition: Stable - Instructions Referrals: Darwin Walter [Primary Care Provider] - Disposition: [facility] - Home Medications Comprehensive Discharge Medication List: Ambulatory Orders Acetaminophen 325 mg PO PRN 08/22/17 Amlodipine Besylate 10 mg PO DAILY 08/22/17 Atorvastatin Ca [Lipitor] 40 mg PO HS 08/22/17 Calcium Carbonate/Vitamin D3 [Calcium 500 + Vit D3 400 Tab] 1 each PO DAILY Citalopram Hydrobromide [Celexa -] 40 mg PO DAILY 08/22/17 Divalproex Sodium 125 mg PO DAILY 08/22/17 Isosorbide Mononitrate [Isosorbide Mononitrate ER] 30 mg PO DAILY 08/22/17 Levetiracetam [Keppra] 750 mg PO DAILY 08/22/17 Memantine HCl 10 mg PO DAILY 08/22/17 Multivitamin [Multiple Vitamins] 1 each PO DAILY 08/22/17 Quetiapine Fumarate [Seroquel] 50 mg PO BID 08/22/17 Ramipril 10 mg PO DAILY 08/22/17 Rivastigmine Tartrate [Rivastigmine] 4.5 mg PO DAILY 08/22/17
[2017-08-25 07:35] LABS: BASO % 0.4 % (0-2.0); EOS % 11.9 % (0-4.5); HEMATOCRIT 31.7 % (32.4-45.2); LYMPH % 19.6 % (8-40); MCH 29.5 pg (25.7-33.7); MCHC 31.7 g/dl (32.0-36.0); MEAN CELL VOLUME 93.1 fl (80-96); MEAN PLT VOLUME 9.3 fl (7.5-11.1); MONO % 11.2 % (3.8-10.2); NEUT % 56.9 % (42.8-82.8); PLATELET COUNT 232 K/MM3 (134-434); WHITE BLOOD COUNT 9.7 K/mm3 (4.0-10.0)
[2017-08-25] MEDS: QUEtiapine FUMARATE 50 MG TABLET PO SCH ×2 (11:00→21:59)
[2017-08-25] MEDS: MAG HYDROX/AL HYDROX/SIMETH 30 ML UNIT-DOSE CUP PO SCH ×4 (11:00→21:59)
--- NOTE | 2017-08-25 12:15 | PN ---
Progress Note, Physician History of Present Illness: No further hematemesis off Eliquis. Remains in SR with PAC. - Current Medication List Current Medications: Active Medications Acetaminophen (Tylenol -) 325 mg PO DAILY PRN PRN Reason: PAIN Al Hydroxide/Mg Hydroxide (Mylanta Oral Suspension -) 30 ml PO QID [facility] Last Admin: 08/24/17 22:21 Dose: 30 ml Citalopram Hydrobromide (Celexa -) 40 mg PO DAILY [facility] Divalproex Sodium (Depakote -) 125 mg PO DAILY [facility] Isosorbide Mononitrate (Imdur -) 30 mg PO DAILY [facility] Levetiracetam (Keppra -) 750 mg PO DAILY [facility] Pantoprazole Sodium (Protonix -) 40 mg PO BID [facility] Last Admin: 08/24/17 22:21 Dose: 40 mg Quetiapine Fumarate (Seroquel -) 50 mg PO BID [facility] Last Admin: 08/24/17 22:22 Dose: 50 mg - Objective Vital Signs: Vital Signs Temperature 98.2 F 08/25/17 10:00 Pulse Rate 94 H 08/25/17 10:00 Respiratory Rate 16 08/25/17 10:00 Blood Pressure 150/80 08/25/17 10:00 O2 Sat by Pulse Oximetry (%) 96 08/25/17 10:00 Constitutional: Yes: No Distress, Calm Neck: Yes: Supple Cardiovascular: Yes: Regular Rate and Rhythm, Other (with ectopic beats) Respiratory: Yes: Regular, Diminished, On Nasal O2 Gastrointestinal: Yes: Normal Bowel Sounds, Soft Edema: No Labs: CBC, BMP 08/25/17 05:58 INR, PTT INR 1.19 (0.82-1.09) H 08/22/17 03:50 - ....Imaging EKG: Report Reviewed (Tele: SR occ PAC) Problem List - Problems (1) Coffee ground emesis Code(s): K92.0 - HEMATEMESIS (2) Peptic ulcer disease Code(s): K27.9 - PEPTIC ULC, SITE UNSP, UNSP AC OR CHR, W/O HEMOR OR PERF (3) Dementia Code(s): F03.90 - UNSPECIFIED DEMENTIA WITHOUT BEHAVIORAL DISTURBANCE Qualifiers: Dementia type: unspecified type Dementia behavioral disturbance: without behavioral disturbance Qualified Code(s): F03.90 - Unspecified dementia without behavioral disturbance (4) Diastolic dysfunction without heart failure Code(s): I51.9 - HEART DISEASE, UNSPECIFIED (5) HTN (hypertension) Code(s): I10 - ESSENTIAL (PRIMARY) HYPERTENSION Qualifiers: Hypertension type: essential hypertension Qualified Code(s): I10 - Essential (primary) hypertension (6) Hyperlipidemia Code(s): E78.5 - HYPERLIPIDEMIA, UNSPECIFIED Qualifiers: Hyperlipidemia type: pure hypercholesterolemia Qualified Code(s): E78.00 - Pure hypercholesterolemia, unspecified; E78.0 - Pure hypercholesterolemia (7) Hypothyroidism Code(s): E03.9 - HYPOTHYROIDISM, UNSPECIFIED Qualifiers: Hypothyroidism type: unspecified Qualified Code(s): E03.9 - Hypothyroidism , unspecified (8) Paroxysmal atrial fibrillation Code(s): I48.0 - PAROXYSMAL ATRIAL FIBRILLATION (9) Upper gastrointestinal bleeding Code(s): K92.2 - GASTROINTESTINAL HEMORRHAGE, UNSPECIFIED Assessment/Plan 1. Resolved UGI bleed with underlying history of Martinez's esophagus, suspect due to erosive gastritis, duodenitis or an ulcer rather than a Danuta Moya tear 2. CAD angina pectoris, stable 3. Diastolic LV dysfunction with class I NYHA classification LV failure, compensated/euvolemic 4. Paroxysmal atrial fibrillation [id number] score of 6 on chronic A/C with NOAC's, currently on hold 5. HTN 6. Hypercholesterolemia 7. History of CVA 8. Organic brain syndrome/dementia 9. Hypothyroidism 10. Anemia PLAN: 1. Start Toprol XL 25 qd, hemodynamics permitting 2. Resume Altace 5 qd now that renal fxn stabilizing, hemodynamics permitting 3. Continue Imdur 30 qd, resume Lipitor 40 qhs 4. A/C with NOAC's/Eliquis is to be deferred, ideally therapy resumption to be considered once the above noted pathology resolves and not absolutely contraindicated, since patient's [id number] score of 6 5. EGD being deferred unless bleeding recurs and s life threatening/associated hemodynamic instability
[2017-08-25 12:59] LABS: ALBUMIN 2.5 g/dl (3.4-5.0); ANION GAP 12 (8-16); BLOOD UREA NITROGEN 26 mg/dL (7-18); CALCIUM 8.3 mg/dL (8.5-10.1); CHLORIDE 109 mmol/L (98-107); CO2 28 mmol/L (21-32); CREATININE 0.7 mg/dL (0.55-1.02); GLUCOSE,RANDOM 89 mg/dL (74-106); POTASSIUM 4.1 mmol/L (3.5-5.1); SGOT/AST 27 U/L (15-37); SGPT/ALT 15 U/L (12-78); SODIUM 149 mmol/L (136-145)
[2017-08-25 13:00] LABS: ALK PHOS 90 U/L (45-117); BILIRUBIN,TOTAL 0.3 mg/dL (0.2-1.0); TOT PROT 6.6 g/dl (6.4-8.2)
[2017-08-25] MEDS: METOPROLOL SUCCINATE 25 MG TAB.SR.24H (FP) PO SCH (14:38)
[2017-08-25] MEDS: CITALOPRAM HYDROBROMIDE 20 MG TABLET (FP) PO SCH (14:39)
[2017-08-25] MEDS: levETIRAcetam 250 MG TABLET (FP) PO SCH (14:39)
[2017-08-25] MEDS: PANTOPRAZOLE 40 MG TABLET (FP) PO SCH ×2 (14:39→21:58)
[2017-08-25] MEDS: ISOSORBIDE MONONITRATE 30 MG TAB.SR.24H (FP) PO SCH (14:39)
[2017-08-25] MEDS: DIVALPROEX SODIUM 125 MG TABLET E.C. (FP) PO SCH (14:39)
[2017-08-25] MEDS ORDERED: DEXTROSE 5%-0.45% SALINE 1,000 ML IV SCH (21:15)
[2017-08-25] MEDS ORDERED: ATORVASTATIN CA 40 MG TABLET (FP) PO SCH (22:00)
[2017-08-26 07:46] LABS: HEMATOCRIT 33.5 % (32.4-45.2); HEMOGLOBIN 10.7 GM/dL (10.7-15.3); MCH 29.4 pg (25.7-33.7); MCHC 31.8 g/dl (32.0-36.0); MEAN CELL VOLUME 92.6 fl (80-96); MEAN PLT VOLUME 9.3 fl (7.5-11.1); PLATELET COUNT 227 K/MM3 (134-434); RBC 3.62 M/mm3 (3.60-5.2); RDW 14.2 % (11.6-15.6); WHITE BLOOD COUNT 8.6 K/mm3 (4.0-10.0)
[2017-08-26 08:13] LABS: ANION GAP 7 (8-16); BLOOD UREA NITROGEN 22 mg/dL (7-18); CHLORIDE 106 mmol/L (98-107); CO2 33 mmol/L (21-32); CREATININE 0.6 mg/dL (0.55-1.02); GLUCOSE,RANDOM 100 mg/dL (74-106); POTASSIUM 3.6 mmol/L (3.5-5.1); SODIUM 146 mmol/L (136-145)
[2017-08-26 08:27] VITALS: BP 124/70; PULSE 84; TEMP 98.2
--- NOTE | 2017-08-26 08:41 | PN ---
Progress Note, Physician Chief Complaint: in bed awake alert NAD no new c/o ate OK no cough, no agitation; - Current Medication List Current Medications: Active Medications Acetaminophen (Tylenol -) 325 mg PO DAILY PRN PRN Reason: PAIN Last Admin: 08/25/17 22:01 Dose: 325 mg Al Hydroxide/Mg Hydroxide (Mylanta Oral Suspension -) 30 ml PO QID [facility] Last Admin: 08/25/17 21:59 Dose: Not Given Atorvastatin Calcium (Lipitor -) 40 mg PO HS [facility] Last Admin: 08/25/17 21:59 Dose: 40 mg Citalopram Hydrobromide (Celexa -) 40 mg PO DAILY [facility] Last Admin: 08/25/17 14:39 Dose: 40 mg Divalproex Sodium (Depakote -) 125 mg PO DAILY [facility] Last Admin: 08/25/17 14:39 Dose: 125 mg Dextrose/Sodium Chloride (D5-1/2ns -) 1,000 mls @ 42 mls/hr IV ASDIR [facility] Last Admin: 08/25/17 21:59 Dose: 42 mls/hr Isosorbide Mononitrate (Imdur -) 30 mg PO DAILY [facility] Last Admin: 08/25/17 14:39 Dose: 30 mg Levetiracetam (Keppra -) 750 mg PO DAILY [facility] Last Admin: 08/25/17 14:39 Dose: 750 mg Metoprolol Succinate (Toprol Xl -) 25 mg PO DAILY [facility] Last Admin: 08/25/17 14:38 Dose: 25 mg Pantoprazole Sodium (Protonix -) 40 mg PO BID [facility] Last Admin: 08/25/17 21:58 Dose: 40 mg Quetiapine Fumarate (Seroquel -) 50 mg PO BID [facility] Last Admin: 08/25/17 21:59 Dose: 50 mg Ramipril (Altace -) 5 mg PO DAILY [facility] - Objective Vital Signs: Vital Signs Temperature 98.2 F 08/26/17 08:05 Pulse Rate 84 08/26/17 08:05 Respiratory Rate 14 08/26/17 08:05 Blood Pressure 124/70 08/26/17 08:05 O2 Sat by Pulse Oximetry (%) 96 08/25/17 22:00 Constitutional: Yes: No Distress, Calm Eyes: Yes: Conjunctiva Clear HENT: Yes: Atraumatic Neck: Yes: Supple Cardiovascular: Yes: Regular Rate and Rhythm Respiratory: Yes: CTA Bilaterally Gastrointestinal: Yes: Soft. No: Distention, Tenderness Musculoskeletal: No: Joint Stiffness, Joint Swelling Extremities: No: Cold, Cool, Cyanosis Edema: No Integumentary: No: Rash, Venous Stasis Changes Neurological: Yes: WNL, Alert. No: Oriented ...Motor Strength: WNL Psychiatric: Yes: WNL, Alert. No: Oriented, Agitated, Suicidal Ideation Labs: CBC, BMP 08/26/17 06:44 08/26/17 06:44 INR, PTT INR 1.19 (0.82-1.09) H 08/22/17 03:50 - ....Imaging Other: Report Reviewed Assessment/Plan ASHD PAFib PUD COPD advanced dementia GI bleed anemia while on blood thinners hold eliquis GI and cardio f/u in NH awaiting for DC to NH; d/w pt's son all the above he agreed with plan. falls aspiration DVT Pfx d.w pt and staff;
[2017-08-26] MEDS ORDERED: PT OWN MED DRAWER 7, Y5N ONE (09:20)
[2017-08-26] MEDS: METOPROLOL SUCCINATE 25 MG TAB.SR.24H (FP) PO SCH (09:55)
[2017-08-26] MEDS: CITALOPRAM HYDROBROMIDE 20 MG TABLET (FP) PO SCH (09:55)
[2017-08-26] MEDS: PANTOPRAZOLE 40 MG TABLET (FP) PO SCH (09:55)
[2017-08-26] MEDS: levETIRAcetam 250 MG TABLET (FP) PO SCH (09:55)
[2017-08-26] MEDS: QUEtiapine FUMARATE 50 MG TABLET PO SCH (09:55)
[2017-08-26] MEDS: ISOSORBIDE MONONITRATE 30 MG TAB.SR.24H (FP) PO SCH (09:55)
[2017-08-26] MEDS: DIVALPROEX SODIUM 125 MG TABLET E.C. (FP) PO SCH (09:56)
[2017-08-26] MEDS ORDERED: RAMIPRIL 5 MG CAPSULE (FP) PO SCH (10:00)
[2017-08-26] MEDS: MAG HYDROX/AL HYDROX/SIMETH 30 ML UNIT-DOSE CUP PO SCH ×2 (10:04→13:59)
[2017-08-26 11:26] LABS: ANISOCYTOSIS 0; PLATELET ESTIMATE NORMAL
--- NOTE | 2017-08-26 12:06 | PN ---
Progress Note, Physician History of Present Illness: No further hematemesis off Eliquis. Remains in SR with PAC. - Current Medication List Current Medications: Active Medications Acetaminophen (Tylenol -) 325 mg PO DAILY PRN PRN Reason: PAIN Last Admin: 08/25/17 22:01 Dose: 325 mg Al Hydroxide/Mg Hydroxide (Mylanta Oral Suspension -) 30 ml PO QID [facility] Last Admin: 08/26/17 10:04 Dose: Not Given Atorvastatin Calcium (Lipitor -) 40 mg PO HS [facility] Last Admin: 08/25/17 21:59 Dose: 40 mg Citalopram Hydrobromide (Celexa -) 40 mg PO DAILY [facility] Last Admin: 08/26/17 09:55 Dose: 40 mg Divalproex Sodium (Depakote -) 125 mg PO DAILY [facility] Last Admin: 08/26/17 09:56 Dose: 125 mg Dextrose/Sodium Chloride (D5-1/2ns -) 1,000 mls @ 42 mls/hr IV ASDIR [facility] Last Admin: 08/25/17 21:59 Dose: 42 mls/hr Isosorbide Mononitrate (Imdur -) 30 mg PO DAILY [facility] Last Admin: 08/26/17 09:55 Dose: 30 mg Levetiracetam (Keppra -) 750 mg PO DAILY [facility] Last Admin: 08/26/17 09:55 Dose: 750 mg Metoprolol Succinate (Toprol Xl -) 25 mg PO DAILY [facility] Last Admin: 08/26/17 09:55 Dose: 25 mg Pantoprazole Sodium (Protonix -) 40 mg PO BID [facility] Last Admin: 08/26/17 09:55 Dose: 40 mg Quetiapine Fumarate (Seroquel -) 50 mg PO BID [facility] Last Admin: 08/26/17 09:55 Dose: 50 mg Ramipril (Altace -) 5 mg PO DAILY [facility] Last Admin: 08/26/17 09:55 Dose: 5 mg - Objective Vital Signs: Vital Signs Temperature 98.2 F 08/26/17 08:05 Pulse Rate 84 08/26/17 08:05 Respiratory Rate 14 08/26/17 08:05 Blood Pressure 124/70 08/26/17 08:05 O2 Sat by Pulse Oximetry (%) 96 08/25/17 22:00 Constitutional: Yes: No Distress, Calm Neck: Yes: Supple Cardiovascular: Yes: Regular Rate and Rhythm Respiratory: Yes: Regular, Diminished Gastrointestinal: Yes: Normal Bowel Sounds, Soft Edema: No Labs: CBC, BMP 08/26/17 06:44 08/26/17 06:44 INR, PTT INR 1.19 (0.82-1.09) H 08/22/17 03:50 - ....Imaging EKG: Report Reviewed (Tele: SR with PAC) Problem List - Problems (1) Coffee ground emesis Code(s): K92.0 - HEMATEMESIS (2) Peptic ulcer disease Code(s): K27.9 - PEPTIC ULC, SITE UNSP, UNSP AC OR CHR, W/O HEMOR OR PERF (3) Dementia Code(s): F03.90 - UNSPECIFIED DEMENTIA WITHOUT BEHAVIORAL DISTURBANCE Qualifiers: Dementia type: unspecified type Dementia behavioral disturbance: without behavioral disturbance Qualified Code(s): F03.90 - Unspecified dementia without behavioral disturbance (4) Diastolic dysfunction without heart failure Code(s): I51.9 - HEART DISEASE, UNSPECIFIED (5) HTN (hypertension) Code(s): I10 - ESSENTIAL (PRIMARY) HYPERTENSION Qualifiers: Hypertension type: essential hypertension Qualified Code(s): I10 - Essential (primary) hypertension (6) Hyperlipidemia Code(s): E78.5 - HYPERLIPIDEMIA, UNSPECIFIED Qualifiers: Hyperlipidemia type: pure hypercholesterolemia Qualified Code(s): E78.00 - Pure hypercholesterolemia, unspecified; E78.0 - Pure hypercholesterolemia (7) Hypothyroidism Code(s): E03.9 - HYPOTHYROIDISM, UNSPECIFIED Qualifiers: Hypothyroidism type: unspecified Qualified Code(s): E03.9 - Hypothyroidism , unspecified (8) Paroxysmal atrial fibrillation Code(s): I48.0 - PAROXYSMAL ATRIAL FIBRILLATION (9) Upper gastrointestinal bleeding Code(s): K92.2 - GASTROINTESTINAL HEMORRHAGE, UNSPECIFIED Assessment/Plan 1. Resolved UGI bleed with underlying history of Martinez's esophagus, suspect due to erosive gastritis, duodenitis or an ulcer rather than a Danuta Moya tear 2. CAD angina pectoris, stable 3. Diastolic LV dysfunction with class I NYHA classification LV failure, compensated/euvolemic 4. Paroxysmal atrial fibrillation [id number] score of 6 on chronic A/C with NOAC's, currently on hold 5. HTN 6. Hypercholesterolemia 7. History of CVA 8. Organic brain syndrome/dementia 9. Hypothyroidism 10. Anemia PLAN: 1. Continue Toprol XL 25 qd, hemodynamics permitting 2. Continue Altace 5 qd now that renal fxn stabilizing, hemodynamics permitting 3. Continue Imdur 30 qd and Lipitor 40 qhs 4. A/C with NOAC's/Eliquis is to be deferred per GI recommendations, ideally therapy resumption to be considered once the above noted pathology resolves and not absolutely contraindicated, since patient's [id number] score of 6 5. EGD being deferred unless bleeding recurs associated with life-threatening hemodynamic instability 6. D/c planning with f/u in office
[2017-08-26 13:38] LABS: MACROCYTOSIS 1+
== END 2017-08-26 17:27 | DRG 813 ==
LOC: JER 02:18 → JERBED 06:41 → UNDOADMIN 06:42 → JERBED 06:42 → J4W 08-23 16:08
PROVIDERS: ADMIT Specialist; ATTEND Specialist
DX: D68.32 Hemorrhagic disorder due to extrinsic circulating anticoagulants (principal); G40.89 Other seizures; F03.91 Unspecified dementia, unspecified severity, with behavioral disturbance; I48.0 Paroxysmal atrial fibrillation; K22.70 Barrett's esophagus without dysplasia; K21.9 Gastro-esophageal reflux disease without esophagitis; Z86.73 Personal history of transient ischemic attack (TIA), and cerebral infarction without residual deficits; I10 Essential (primary) hypertension; E78.5 Hyperlipidemia, unspecified; F31.9 Bipolar disorder, unspecified; E03.9 Hypothyroidism, unspecified; K59.00 Constipation, unspecified; Z66 Do not resuscitate; F20.9 Schizophrenia, unspecified; Z87.891 Personal history of nicotine dependence; Z79.01 Long term (current) use of anticoagulants; I25.119 Atherosclerotic heart disease of native coronary artery with unspecified angina pectoris; Z87.11 Personal history of peptic ulcer disease; Z78.1 Physical restraint status
CPT/HCPCS: 36415; 71045-TC; 80048; 80053; 81003; 82272; 82550; 82728; 83540; 83550; 84484; 85025; 85027; 85044; 85610; 85730; 86850; 86900; 86901; 87086; 93005; 93010; 99285-25

== ENCOUNTER 2018-06-17 12:59 | Inpatient (IN) | payer OTHER, MEDICARE ==
[2018-06-17 13:12] VITALS: BMI 29.7
--- NOTE | 2018-06-17 13:17 | PDOC ---
History of Present Illness - General Chief Complaint: Vomiting Blood Stated Complaint: VOMITING BLOOD Time Seen by Provider: 06/17/18 13:16 History Source: Care Provider (Aide from [place]), Family (Son present for initial interview), Old Records Exam Limitations: Dementia - History of Present Illness Initial Comments: 88 y/o female presenting to [facility] ER via ambulance from [facility] with complaints of possible hematemesis. Known history of PUD and Barrretts Esophagus. Pt is demented as baseline and unable to provide any information. She is accompanied by her son (FIDEL) and an aid from the facility. Neither person witnessed the concerning event. Nurse from facility reportedly saw two episodes of coffee ground emesis approx. two hours ago. No other symptoms reported. Pt denies any complaints. Known history of Barretts Esophagus and PUD. Last EGD was 2015. Pt was a history of similar episodes. She was last evaluated here for hematemesis in Aug 2017. Dr. Griggs was consulted who recommended discontinuing Eliquis. A repeat EGD was not performed after discussing risks/ benefits with daughter, who requested it only be performed in life threatening hemorrhage. Son reports she was last hospitalized in Apr 2018 at [facility] for a respiratory infection. Was discharged home on an unknown antibiotic. Last here 08/22/2017 for hematemesis PCP: Dr. 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, Dementia (with agitation) Cardiovascular: AFIB (previously on Eliquis), HTN, Hyperlipdemia Gastrointestinal: Peptic Ulcer Disease and Barretts Esophagus Endocrine: Hypothyroidism Past History - Past Medical History Allergies/Adverse Reactions: Allergies Allergy/AdvReac Type Severity Reaction Status Date / Time No Known Allergies Allergy Verified 06/17/18 13:12 Home Medications: Ambulatory Orders Acetaminophen 325 mg PO PRN 08/22/17 Atorvastatin Ca [Lipitor] 40 mg PO HS 08/22/17 Calcium Carbonate/Vitamin D3 [Calcium 500-Vit D3 400 Tablet] 1 each PO DAILY Citalopram Hydrobromide [Celexa -] 40 mg PO DAILY 08/22/17 Divalproex Sodium 250 mg PO DAILY 08/22/17 Isosorbide Mononitrate [Isosorbide Mononitrate ER] 30 mg PO DAILY 08/22/17 Levetiracetam [Keppra] 750 mg PO DAILY 08/22/17 Multivitamin [Multiple Vitamins] 1 each PO DAILY 08/22/17 Rivastigmine Tartrate [Rivastigmine] 4.5 mg PO DAILY 08/22/17 Pantoprazole Sodium [Protonix -] 40 mg PO BID tablet.ec 08/25/17 Ramipril [Altace] 5 mg PO DAILY capsule 08/25/17 Albuterol 2.5/Ipratropium 0.5 [Duoneb -] 1 neb IH QID 06/17/18 Ascorbic Acid [Vitamin C] 250 mg PO DAILY 06/17/18 Cholecalciferol (Vitamin D3) [Vitamin D3] 400 unit PO DAILY 06/17/18 Clotrimazole [Clotrimazole AF] 28 gm TP BID 06/17/18 Docusate Sodium 300 mg PO HS 06/17/18 Haloperidol Lactate [Haldol] 5 mg IM Q6H PRN 06/17/18 Mag Hydrox/Al Hydrox/Simeth [Mylanta Oral Suspension -] 30 ml PO BID 06/17/18 Magnesium Hydrox 2400MG/30Ml [Milk of Magnesia -] 30 ml PO BID 06/17/18 Menthol [Bengay Ultra Strength] 1 each TP DAILY 06/17/18 Methenamine Hippurate [Hiprex [Nf] -] 1 gm PO DAILY 06/17/18 Metoprolol Succinate [Toprol Xl] 25 mg PO DAILY 06/17/18 Protein Hydrolysate,Milk [Liquid Protein Fortifier] 54 ml PO BID 06/17/18 Risperidone [Risperdal] 1 mg PO BID 06/17/18 Sennosides [Senna] 8.6 mg PO HS 06/17/18 Anemia: Yes Cardiac Disorders: Yes (A FIB) CVA: (TIA) COPD: No Dementia: Yes GI Disorders: Yes (PEPTIC ULCER) HTN: Yes Hypercholesterolemia: Yes Psychiatric Problems: Yes (schizophrenia,depression,bipolar) Seizures: Yes Thyroid Disease: Yes - Surgical History Abdominal Surgery: Yes Cholecystectomy: Yes - Immunization History Immunization Up to Date: Yes - Suicide/Smoking/Psychosocial Hx Smoking Status: No Smoking History: Never smoked Have you smoked in the past 12 months: No Number of Cigarettes Smoked Daily: 0 If you are a former smoker, when did you quit?: 1975 Hx Alcohol Use: No Drug/Substance Use Hx: No Substance Use Type: None Hx Substance Use Treatment: No Review of Systems - Review of Systems Able to Perform ROS?: No (Demented at baseline) *Physical Exam - Vital Signs Last Vital Signs Temp Pulse Resp BP Pulse Ox 97.7 F 98 H 18 121/80 98 06/17/18 13:10 06/17/18 13:10 06/17/18 13:10 06/17/18 13:10 06/17/18 13:10 - Physical Exam Comments: Constitutional: Well-developed, well-nourished female in no acute distress or obvious discomfort. Found semi-fowlers in hospital bed. Alert with eyes open spontaneously. Answered all questions appropriately and completely. Speech was non-labored, non-pressured. HEENT: Normocephalic. No obvious external signs of trauma. Hearing grossly normal. No nasal discharge. Neck is supple, trachea is midline. Cardiovascular: Irregularly irregular rhythm. No murmur, rubs, clicks, or gallops. Peripheral pulses: Radial pulses full. Mucosal membranes borderline pale. Respiratory: Breathing unlabored. Equal chest rise and fall. Clear to auscultation bilaterally. No stridor, no wheezing, no rhonchi. Gastrointestinal: abdomen is soft, non-tender, non-distended. Hemoccult negative. Neuro: Alert and oriented. Moving all four extremities spontaneously. Alert to person, baseline per son and aid. Skin: Warm, dry, and intact. Singular ecchymotic lesion on lower left leg. Psych: Affect: appropriate. Mood: normal. ED Treatment Course - LABORATORY CBC & Chemistry Diagram: 06/17/18 13:45 06/17/18 13:45 Medical Decision Making - Medical Decision Making *Reviewed vital signs, nursing notes, and prior visit documentation (if available). 88 y/o female with possible hematemesis. H/o of similar. H/o PUD and Barretts Esophagus No longer on Eliquis. Afebrile. Vitals unremarkable for hypotension or tachycardia. Physical exam as described above. Hemoccult negative. Possible UGIB versus mucosal irritation. Will obtain CBC, CMP, T/S, Coags, CXR, EKG. Ordered Pantoprazole. No EKG changes compared to previous. H/H stable. CXR possibly suggestive for aspiration. Will not start antibiotic therapy as pt is afebrile 15:[address] Juan Pa. Discussed HPI, ED course, and current plan of management. Agreed to admit pt to med/surg on inpatient status. Requested consultation order with Dr. Griggs, GI organization development consultant. After aide left, pt became more confused and repeatedly attempted to get out of bed. Verbally threatened multiple members of staff. Administered 1mg Ativan and placed the bed into reverse trendelenburg position. Pt now resting comfortably. T/S hemolyzed. Reordered. *DC/Admit/Observation/Transfer Diagnosis at time of Disposition: Peptic ulcer disease Hematemesis/vomiting blood Qualifiers: Nausea presence: unspecified Qualified Code(s): K92.0 - Hematemesis Barretts esophagus Qualifiers: Martinez's esophagus type: with dysplasia of unspecified degree Qualified Code(s ): K22.719 - Martinez's esophagus with dysplasia, unspecified Dementia Qualifiers: Dementia type: unspecified type Dementia behavioral disturbance: with behavioral disturbance Qualified Code(s): F03.91 - Unspecified dementia with behavioral disturbance - Discharge Dispostion Condition at time of disposition: Stable Decision to Admit order: Yes - Referrals - Patient Instructions - Post Discharge Activity
[2018-06-17 14:10] LABS: BASO % 0.7 % (0-2.0); EOS % 6.4 % (0-4.5); HEMATOCRIT 37.5 % (32.4-45.2); HEMOGLOBIN 11.6 GM/dL (10.7-15.3); LYMPH % 25.6 % (8-40); MCHC 30.9 g/dl (32.0-36.0); MEAN CELL VOLUME 87.5 fl (80-96); MEAN PLT VOLUME 9.5 fl (7.5-11.1); NEUT % 55.3 % (42.8-82.8); PLATELET COUNT 232 K/MM3 (134-434); RBC 4.29 M/mm3 (3.60-5.2); RDW 15.7 % (11.6-15.6); WHITE BLOOD COUNT 8.4 K/mm3 (4.0-10.0)
--- NOTE | 2018-06-17 14:26 | PDOC ---
Attending Attestation - Resident Resident Name: Davey Fall - ED Attending Attestation I have performed the following: I have examined & evaluated the patient, The case was reviewed & discussed with the resident, I agree w/resident's findings & plan, Exceptions are as noted - HPI HPI: 06/17/18 14:10 88y F barretts, pud, dementia, afib (off a/c now), htn, hl, cva, hypothyroidism presnts from [facility] for evaluation of hematesis x 2 this morning. Per aide , it was described as looking like 'coffee grounds'. The patient is unable to provide much history due to her severe dementia (which is baseline per aide). The pt denies any acute complaints currently including palpitations, sob, cp, abd pain, diarrhea. Unclear of BPR/melena. Pt with prior history of GIB in epast with hospitalization and decision made not to scope due to risk to pt unless life threatening hemorrhage. GI: Tracey PMD: Juan Pa GENERAL: The patient is awake, alert, and oriented x 1, Nontoxic - in no acute distress. HEAD: Normocephalic, atraumatic. EYES: extraocular movements intact, sclera anicteric, conjunctiva clear. ENT: Normal voice, dry mucous membranes. NECK: Normal range of motion, supple LUNGS: Breath sounds equal, clear to auscultation bilaterally. No wheezes, no rhonchi, no rales. HEART: Regular rate and rhythm, normal S1 and S2 without murmur, rub or gallop. ABDOMEN: Soft, nontender, No guarding, no rebound. No CVA tenderness RECTAL: Per resident documentaiton EXTREMITIES: Normal range of motion, NEUROLOGICAL: No facial assymetry, Normal speech, moving all 4 extremities spontaneously and symmetrically PSYCH: Normal mood, normal affect. SKIN: Warm, Dry, normal turgor, Concern for upper GI bleed will start patient on protonic bolus and drip Patient's vitals are currently normal without signs of tachycardia or hypotension. Anticipate admission with GI consultation - Physicial Exam PE: 06/24/18 16:42 see above - Medical Decision Making 06/24/18 16:42 see above Heart Score/ECG Review - ECG Impressions Comment:: 06/17/18 14:53 Twelve-lead EKG was performed and reviewed by me. There is normal sinus rhythm with a normal rate. Rate of 94 Right bundle-branch block
[2018-06-17 14:41] LABS: ALBUMIN 3.3 g/dl (3.4-5.0); ALK PHOS 77 U/L (45-117); ANION GAP 8 MMOL/L (8-16); BILIRUBIN,TOTAL 0.4 mg/dL (0.2-1); BLOOD UREA NITROGEN 31 mg/dL (7-18); CALCIUM 8.9 mg/dL (8.5-10.1); CHLORIDE 106 mmol/L (98-107); CO2 29 mmol/L (21-32); CREATININE 0.8 mg/dL (0.55-1.3); GLUCOSE,RANDOM 100 mg/dL (74-106); POTASSIUM 4.2 mmol/L (3.5-5.1); SGOT/AST 22 U/L (15-37); SGPT/ALT 14 U/L (13-61); SODIUM 143 mmol/L (136-145); TOT PROT 7.2 g/dl (6.4-8.2)
[2018-06-17] MEDS ORDERED: PANTOPRAZOLE SODIUM 40 MG VIAL IVPUSH ONE (14:44)
[2018-06-17] MEDS ORDERED: PANTOPRAZOLE SODIUM 80 MG in SODIUM CHLORIDE 100 ML IVPB SCH (14:45)
[2018-06-17] MEDS ORDERED: PANTOPRAZOLE SODIUM 40 MG VIAL ONE (14:49)
[2018-06-17 14:55] LABS: INR 0.92 (0.83-1.09); PROTHROMBIN TIME (PATIENT) 10.9 SEC (9.7-13.0)
[2018-06-17] MEDS ORDERED: LORazepam 2 MG/ML SDV VIAL ONE (15:15)
[2018-06-17 15:20] LABS: ACTIVATED PTT 30.3 SECONDS (25.2-36.5)
[2018-06-17] MEDS ORDERED: ALBUTEROL SO4 2.5/IPRATROPIUM 0.5 INH SOL 3 ML VIAL.NEB. NEB PRN (16:52)
[2018-06-17] MEDS ORDERED: MAG HYDROX/AL HYDROX/SIMETH 30 ML UNIT-DOSE CUP PO PRN (16:52)
[2018-06-17] MEDS ORDERED: ACETAMINOPHEN 325 MG TABLET (FP) PO PRN (16:52)
--- NOTE | 2018-06-17 16:52 | HP ---
Admitting History and Physical - Primary Care Physician PCP: Francy Pa S - Admission Chief Complaint: coffee grounds emesis History of Present Illness: 88 y/o female presenting to [facility] ER via ambulance from [facility] for vomiting blood. Known history of PUD and Barrretts Esophagus. Pt has advanced severe dementia as baseline and unable to provide any information.Nurse from facility reportedly saw two episodes of coffee ground emesis approx. two hours ago. No other symptoms reported. Pt denies any complaints. Known history of Barretts Esophagus and PUD. Last EGD was 2015. Pt was a history of similar episodes. She was last evaluated here for hematemesis in Aug 2017. Dr. Griggs was consulted who recommended discontinuing Eliquis. A repeat EGD was not performed after discussing risks/ benefits with daughter, who requested it only be performed in life threatening hemorrhage. Son reports she was last hospitalized in Apr 2018 at [facility] for a respiratory infection. She also had recent UTI in [place] and was treated with antibiotics. 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: CVA, Dementia (with aggitation) Cardiovascular: Yes: AFIB, HTN, Hyperlipdemia Gastrointestinal: Yes: Peptic Ulcer Disease Endocrine: Yes: Hypothyroidism - Past Surgical History Past Surgical History: Yes: Cholecystectomy - Smoking History Smoking history: Never smoked Have you smoked in the past 12 months: No Aproximately how many cigarettes per day: 0 If you are a former smoker, when did you quit?: 1975 - Alcohol/Substance Use Hx Alcohol Use: No History of Substance Use: reports: None - Social History Usual Living Arrangement: Yes: Snf ADL: Support Services History of Recent Travel: No Home Medications - Allergies Allergies/Adverse Reactions: Allergies Allergy/AdvReac Type Severity Reaction Status Date / Time No Known Allergies Allergy Verified 06/17/18 13:12 - Home Medications Home Medications: Ambulatory Orders Acetaminophen 325 mg PO PRN 08/22/17 Atorvastatin Ca [Lipitor] 40 mg PO HS 08/22/17 Calcium Carbonate/Vitamin D3 [Calcium 500-Vit D3 400 Tablet] 1 each PO DAILY Citalopram Hydrobromide [Celexa -] 40 mg PO DAILY 08/22/17 Divalproex Sodium 250 mg PO DAILY 08/22/17 Isosorbide Mononitrate [Isosorbide Mononitrate ER] 30 mg PO DAILY 08/22/17 Levetiracetam [Keppra] 750 mg PO DAILY 08/22/17 Multivitamin [Multiple Vitamins] 1 each PO DAILY 08/22/17 Rivastigmine Tartrate [Rivastigmine] 4.5 mg PO DAILY 08/22/17 Pantoprazole Sodium [Protonix -] 40 mg PO BID tablet.ec 08/25/17 Ramipril [Altace] 5 mg PO DAILY capsule 08/25/17 Albuterol 2.5/Ipratropium 0.5 [Duoneb -] 1 neb IH QID 06/17/18 Ascorbic Acid [Vitamin C] 250 mg PO DAILY 06/17/18 Cholecalciferol (Vitamin D3) [Vitamin D3] 400 unit PO DAILY 06/17/18 Clotrimazole [Clotrimazole AF] 28 gm TP BID 06/17/18 Docusate Sodium 300 mg PO HS 06/17/18 Haloperidol Lactate [Haldol] 5 mg IM Q6H PRN 06/17/18 Mag Hydrox/Al Hydrox/Simeth [Mylanta Oral Suspension -] 30 ml PO BID 06/17/18 Magnesium Hydrox 2400MG/30Ml [Milk of Magnesia -] 30 ml PO BID 06/17/18 Menthol [Bengay Ultra Strength] 1 each TP DAILY 06/17/18 Methenamine Hippurate [Hiprex [Nf] -] 1 gm PO DAILY 06/17/18 Metoprolol Succinate [Toprol Xl] 25 mg PO DAILY 06/17/18 Protein Hydrolysate,Milk [Liquid Protein Fortifier] 54 ml PO BID 06/17/18 Risperidone [Risperdal] 1 mg PO BID 06/17/18 Sennosides [Senna] 8.6 mg PO HS 06/17/18 Family Disease History - Family Disease History Family History: Unremarkable Review of Systems - Review of Systems Constitutional: denies: Chills, Fever, Lethargy HENT: denies: Epistaxis, Gingival Bleeding Neck: denies: Stiffness, Swollen Glands Cardiovascular: denies: Edema, Shortness of Breath Respiratory: denies: Cough, Hemoptysis, Orthopnea, Wheezing Gastrointestinal: reports: Vomiting, Vomiting Blood. denies: Bloating, Constipation, Diarrhea, Melena, Rectal Bleeding Genitourinary: denies: Hematuria, Vaginal Bleeding Musculoskeletal: denies: Joint Swelling Integumentary: denies: Eczema, Erythema, Rash, Wound Neurological: reports: Confusion. denies: Pre-Existing Deficit Hematology/Lymphatic: denies: Easily Bruised, Excessive Bleeding Physical Examination Vital Signs: Vital Signs Temperature 97.7 F 06/17/18 13:10 Pulse Rate 98 H 06/17/18 13:10 Respiratory Rate 18 06/17/18 13:10 Blood Pressure 121/80 06/17/18 13:10 O2 Sat by Pulse Oximetry (%) 98 06/17/18 13:10 Constitutional: Yes: No Distress, Calm Eyes: Yes: Conjunctiva Clear HENT: Yes: Atraumatic Neck: Yes: Supple Cardiovascular: Yes: Regular Rate and Rhythm Respiratory: Yes: CTA Bilaterally Gastrointestinal: Yes: Soft. No: Distention, Tenderness Renal/: No: Hematuria Musculoskeletal: No: Joint Stiffness, Joint Swelling Extremities: No: Cold, Cool, Cyanosis Edema: No Peripheral Pulses WNL: Yes Integumentary: No: Pressure Ulcer, Rash, Venous Stasis Changes Neurological: Yes: Alert. No: Oriented ...Motor Strength: WNL Psychiatric: Yes: Alert, Agitated. No: Oriented Labs: CBC, BMP 06/17/18 13:45 06/17/18 13:45 Imaging - Results Chest X-ray: Report Reviewed Other: Report Reviewed Assessment/Plan 88 y/o female presenting to [facility] ER via ambulance from [facility] with UGI bleed Known history of PUD and Barrretts Esophagus. Severe dementia as baseline and unable to provide any information. s/p recent PNA and UTIs. admit; NPO; IVF GI eval f/u labs further w/u and management per GI d/w pt and staff falls decubs pfx
[2018-06-17] MEDS ORDERED: SODIUM CHLORIDE 1,000 ML IV SCH (19:00)
[2018-06-17] MEDS ORDERED: [UNRECOGNIZED DRUG - OTHER] PO SCH (22:00)
[2018-06-17] MEDS ORDERED: PROTEIN HYDROLYSATE MILK PO SCH (22:00)
[2018-06-17] MEDS: PANTOPRAZOLE 40 MG TABLET (FP) PO SCH (22:13)
[2018-06-17] MEDS: risperiDONE 1 MG TABLET (FP) PO SCH (22:13)
[2018-06-17] MEDS: DOCUSATE SODIUM 100 MG CAPSULE (FP) PO SCH (22:13)
[2018-06-17] MEDS: ATORVASTATIN CA 40 MG TABLET (FP) PO SCH (22:17)
[2018-06-17] MEDS: SENNOSIDES 8.6MG TABLET (FP) PO SCH (22:17)
--- NOTE | 2018-06-18 06:47 | PN ---
Progress Note, Physician Chief Complaint: no further GI bleed seen by GI alvarez diet as tolerated H&H stable daughter at bedside d/w her she is aware of pt's condition and prefers conservative management; asware pt could have ulcers/ malignancy but would not do any surgery or invasive / aggressive treatment anyway, agreed with PPI and IVF for now d/w GI dr Caro CXR noted possible PNA/CHF will check chest CT; consider swallow eval also d/w staff pt needs vest restraints for safety trying to get OOB alone since admission - Current Medication List Current Medications: Active Medications Acetaminophen (Tylenol -) 325 mg PO Q6H PRN PRN Reason: PAIN Al Hydroxide/Mg Hydroxide (Mylanta Oral Suspension -) 30 ml PO BID PRN PRN Reason: DYSPEPSIA Albuterol/Ipratropium (Duoneb -) 1 amp NEB QID PRN PRN Reason: WHEEZING Ascorbic Acid (Vitamin C -) 250 mg PO DAILY [facility] Atorvastatin Calcium (Lipitor -) 40 mg PO HS [facility] Last Admin: 06/17/18 22:17 Dose: 40 mg Calcium Carbonate/Cholecalciferol (Os-Antwan 500+D -) 1 tab PO DAILY [facility] Cholecalciferol (Vitamin D3 -) 400 unit PO DAILY [facility] Citalopram Hydrobromide (Celexa -) 40 mg PO DAILY [facility] Divalproex Sodium (Depakote -) 250 mg PO DAILY [facility] Docusate Sodium (Colace -) 300 mg PO HS [facility] Last Admin: 06/17/18 22:13 Dose: 300 mg Sodium Chloride (Normal Saline -) 1,000 mls @ 75 mls/hr IV ASDIR [facility] Last Admin: 06/17/18 19:37 Dose: 75 mls/hr Isosorbide Mononitrate (Imdur -) 30 mg PO DAILY [facility] Levetiracetam (Keppra -) 750 mg PO DAILY [facility] Metoprolol Succinate (Toprol Xl -) 25 mg PO DAILY [facility] Multivitamins/Minerals/Vitamin C (Tab-A-Vit -) 1 tab PO DAILY [facility] Non-Formulary Medication (Methenamine Hippurate) 1 gm PO DAILY [facility] Pantoprazole Sodium (Protonix -) 40 mg PO BID [facility] Last Admin: 06/17/18 22:13 Dose: 40 mg Ramipril (Altace -) 5 mg PO DAILY [facility] Risperidone (Risperdal -) 1 mg PO BID [facility] Last Admin: 06/17/18 22:13 Dose: 1 mg Rivastigmine Tartrate (Exelon (Nf) -) 4.5 mg PO DAILY [facility] Senna (Senna -) 1 tab PO HS [facility] Last Admin: 06/17/18 22:17 Dose: 1 tab - Objective Vital Signs: Vital Signs Temperature 97.4 F L 06/17/18 17:45 Pulse Rate 86 06/17/18 17:45 Respiratory Rate 18 06/17/18 17:45 Blood Pressure 148/54 L 06/17/18 17:45 O2 Sat by Pulse Oximetry (%) 96 06/17/18 21:00 Constitutional: Yes: No Distress, Calm Eyes: Yes: Conjunctiva Clear HENT: Yes: Atraumatic Neck: Yes: Supple Cardiovascular: Yes: Regular Rate and Rhythm Respiratory: Yes: CTA Bilaterally Gastrointestinal: Yes: Soft. No: Distention Genitourinary: No: Hematuria Musculoskeletal: No: Joint Stiffness, Joint Swelling Extremities: No: Cold, Cool, Cyanosis Edema: No Peripheral Pulses WNL: Yes Integumentary: No: Pressure Ulcer, Rash, Venous Stasis Changes Neurological: Yes: Alert. No: Oriented ...Motor Strength: WNL Psychiatric: Yes: Alert. No: Oriented, Agitated Labs: CBC, BMP 06/17/18 13:45 06/17/18 13:45 INR, PTT INR 0.92 (0.83-1.09) 06/17/18 13:58 - ....Imaging Other: Report Reviewed Assessment/Plan 88 y/o female presenting to [facility] ER via ambulance from [facility] with UGI bleed Known history of PUD and Barrretts Esophagus. Severe dementia as baseline and unable to provide any information. s/p recent PNA and UTIs. admit; IVF, PPIs advance diet as tolerated GI eval f/u labs check chest CT results r/p CHF / PNA further w/u and management per GI d/w pt and staff, if stable will transfer to [place] on wednesday pfx
[2018-06-18 08:26] LABS: BASO % 0.5 % (0-2.0); EOS % 9.3 % (0-4.5); HEMATOCRIT 33.3 % (32.4-45.2); HEMOGLOBIN 10.3 GM/dL (10.7-15.3); LYMPH % 27.2 % (8-40); MCHC 31.1 g/dl (32.0-36.0); MEAN CELL VOLUME 86.9 fl (80-96); MEAN PLT VOLUME 9.6 fl (7.5-11.1); MONO % 11.2 % (3.8-10.2); NEUT % 51.8 % (42.8-82.8); PLATELET COUNT 203 K/MM3 (134-434); RBC 3.83 M/mm3 (3.60-5.2); RDW 15.7 % (11.6-15.6); WHITE BLOOD COUNT 6.9 K/mm3 (4.0-10.0)
[2018-06-18 08:42] LABS: ALBUMIN 2.7 g/dl (3.4-5.0); ALK PHOS 70 U/L (45-117); ANION GAP 7 MMOL/L (8-16); BILIRUBIN,TOTAL 0.5 mg/dL (0.2-1); BLOOD UREA NITROGEN 24 mg/dL (7-18); CALCIUM 8.4 mg/dL (8.5-10.1); CHLORIDE 108 mmol/L (98-107); CO2 28 mmol/L (21-32); CREATININE 0.6 mg/dL (0.55-1.3); GLUCOSE,RANDOM 91 mg/dL (74-106); POTASSIUM 3.7 mmol/L (3.5-5.1); SGOT/AST 21 U/L (15-37); SGPT/ALT 12 U/L (13-61); SODIUM 143 mmol/L (136-145); TOT PROT 5.9 g/dl (6.4-8.2)
[2018-06-18] MEDS ORDERED: PT OWN MED DRAWER 7, Y5N ONE ×2 (09:55→10:39)
[2018-06-18] MEDS ORDERED: PATIENT'S OWN MEDICATION (NON-FORMULARY) (Methenamine Hippurate 1 GM) PO SCH (10:00)
[2018-06-18] MEDS: levETIRAcetam 250 MG TABLET (FP) PO SCH (10:17)
[2018-06-18] MEDS: PANTOPRAZOLE 40 MG TABLET (FP) PO SCH ×2 (10:18→21:16)
[2018-06-18] MEDS: risperiDONE 1 MG TABLET (FP) PO SCH ×2 (10:18→21:16)
[2018-06-18] MEDS: ISOSORBIDE MONONITRATE 30 MG TAB.SR.24H (FP) PO SCH (10:18)
[2018-06-18] MEDS: CHOLECALCIFEROL (VITAMIN D3) 400 UNIT TABLET (FP) PO SCH (10:18)
[2018-06-18] MEDS: CITALOPRAM HYDROBROMIDE 20 MG TABLET (FP) PO SCH (10:18)
[2018-06-18] MEDS: MULTIVITAMINS (DAILY MVI) TABLET (FP) PO SCH (10:18)
[2018-06-18] MEDS: metoPROLOL SUCCINATE 25 MG TAB.SR.24H (FP) PO SCH (10:18)
[2018-06-18] MEDS: RAMIPRIL 5 MG CAPSULE (FP) PO SCH (10:19)
[2018-06-18] MEDS: CALCIUM 500MG/VIT-D 200 UNITS COMBO TABLET (FP) PO SCH (10:19)
[2018-06-18] MEDS: RIVASTIGMINE TARTRATE 1.5 MG CAPSULE PO SCH (10:20)
[2018-06-18] MEDS: ASCORBIC ACID 250 MG TABLET (FP) PO SCH (10:29)
[2018-06-18] MEDS: DIVALPROEX SODIUM 250 MG TABLET E.C. PO SCH (11:30)
--- NOTE | 2018-06-18 11:35 | CON.GI ---
Consult Consult Specialty:: GI Referred by:: Dr Francy Pa Reason for Consultation:: Coffee grounds emesis reported from [place] - History of Present Illness Chief Complaint: 88 y.o. woman with agitated dementia, reportedly had coffee grounds emesis at [place]. Has been here almost 24 hours without any repeat emesis observed. Stool was guaiac negative in ER yesterday. Pt had similar episode in August 2017, was taken off anticoagulation. Family at that time stated that they only wanted intervention for life-threatening bleeding. History of Present Illness: See chief complaint. 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: CVA, Dementia (with aggitation) Cardio/Vascular: Yes: AFIB, HTN, Hyperlipdemia Gastrointestinal: Yes: Peptic Ulcer Disease Endocrine: Yes: Hypothyroidism - Past Surgical History Past Surgical History: Yes: Cholecystectomy - Alcohol/Substance Use Hx Alcohol Use: No History of Substance Use: reports: None - Smoking History Smoking history: Former smoker Have you smoked in the past 12 months: No Aproximately how many cigarettes per day: 0 If you are a former smoker, when did you quit?: 1975 - Social History Usual Living Arrangement: Prison ADL: Support Services History of Recent Travel: No Home Medications - Allergies Allergies/Adverse Reactions: Allergies Allergy/AdvReac Type Severity Reaction Status Date / Time No Known Allergies Allergy Verified 06/17/18 13:12 - Home Medications Home Medications: Ambulatory Orders Acetaminophen 325 mg PO PRN 08/22/17 Atorvastatin Ca [Lipitor] 40 mg PO HS 08/22/17 Calcium Carbonate/Vitamin D3 [Calcium 500-Vit D3 400 Tablet] 1 each PO DAILY Citalopram Hydrobromide [Celexa -] 40 mg PO DAILY 08/22/17 Divalproex Sodium 250 mg PO DAILY 08/22/17 Isosorbide Mononitrate [Isosorbide Mononitrate ER] 30 mg PO DAILY 08/22/17 Levetiracetam [Keppra] 750 mg PO DAILY 08/22/17 Multivitamin [Multiple Vitamins] 1 each PO DAILY 08/22/17 Rivastigmine Tartrate [Rivastigmine] 4.5 mg PO DAILY 08/22/17 Pantoprazole Sodium [Protonix -] 40 mg PO BID tablet.ec 08/25/17 Ramipril [Altace] 5 mg PO DAILY capsule 08/25/17 Albuterol 2.5/Ipratropium 0.5 [Duoneb -] 1 neb IH QID 06/17/18 Ascorbic Acid [Vitamin C] 250 mg PO DAILY 06/17/18 Cholecalciferol (Vitamin D3) [Vitamin D3] 400 unit PO DAILY 06/17/18 Clotrimazole [Clotrimazole AF] 28 gm TP BID 06/17/18 Docusate Sodium 300 mg PO HS 06/17/18 Haloperidol Lactate [Haldol] 5 mg IM Q6H PRN 06/17/18 Mag Hydrox/Al Hydrox/Simeth [Mylanta Oral Suspension -] 30 ml PO BID 06/17/18 Magnesium Hydrox 2400MG/30Ml [Milk of Magnesia -] 30 ml PO BID 06/17/18 Menthol [Bengay Ultra Strength] 1 each TP DAILY 06/17/18 Methenamine Hippurate [Hiprex [Nf] -] 1 gm PO DAILY 06/17/18 Metoprolol Succinate [Toprol Xl] 25 mg PO DAILY 06/17/18 Protein Hydrolysate,Milk [Liquid Protein Fortifier] 54 ml PO BID 06/17/18 Risperidone [Risperdal] 1 mg PO BID 06/17/18 Sennosides [Senna] 8.6 mg PO HS 06/17/18 Physical Exam-GI Vital Signs: Vital Signs Temperature 98.4 F 06/18/18 10:36 Pulse Rate 100 H 06/18/18 10:36 Respiratory Rate 19 06/18/18 10:36 Blood Pressure 138/72 06/18/18 10:36 O2 Sat by Pulse Oximetry (%) 96 06/17/18 21:00 Cardiovascular: Yes: Pulse Irregular ...Rectal Exam: Yes: Other (Was negative in ER yesterday) Neurological: Yes: Confusion Labs: CBC, BMP 06/18/18 07:40 06/18/18 07:40 INR, PTT INR 0.92 (0.83-1.09) 06/17/18 13:58 Assessment/Plan CBC, BMP 06/18/18 07:40 06/18/18 07:40 Pt with possible small hematemesis yesterday. I would respect the family's wishes not to intervene. Would try to feed patient; if she can tolerate a diet without vomiting, no investigation is needed. If she vomits again then there would be a concern for possible esophageal or gastric malignancy and the family will again need to decide how aggressive;y to work her up.
[2018-06-18] MEDS: DOCUSATE SODIUM 100 MG CAPSULE (FP) PO SCH (21:15)
[2018-06-18] MEDS: ATORVASTATIN CA 40 MG TABLET (FP) PO SCH (21:16)
[2018-06-18] MEDS: SENNOSIDES 8.6MG TABLET (FP) PO SCH (21:16)
[2018-06-19 07:36] LABS: BASO % 0.4 % (0-2.0); EOS % 8.7 % (0-4.5); HEMATOCRIT 32.9 % (32.4-45.2); HEMOGLOBIN 10.3 GM/dL (10.7-15.3); LYMPH % 24.7 % (8-40); MCH 27.1 pg (25.7-33.7); MCHC 31.2 g/dl (32.0-36.0); MEAN PLT VOLUME 8.9 fl (7.5-11.1); MONO % 11.3 % (3.8-10.2); NEUT % 54.9 % (42.8-82.8); PLATELET COUNT 212 K/MM3 (134-434); RBC 3.78 M/mm3 (3.60-5.2); RDW 15.9 % (11.6-15.6)
[2018-06-19 08:51] LABS: ANION GAP 7 MMOL/L (8-16); BLOOD UREA NITROGEN 23 mg/dL (7-18); CALCIUM 8.6 mg/dL (8.5-10.1); CHLORIDE 108 mmol/L (98-107); CO2 28 mmol/L (21-32); CREATININE 0.7 mg/dL (0.55-1.3); GLUCOSE,RANDOM 87 mg/dL (74-106); SODIUM 143 mmol/L (136-145)
--- NOTE | 2018-06-19 08:52 | PN ---
Progress Note, Physician Chief Complaint: H&H stable no bleed tolerated po food as ordered chest CT results pending swallow eval - Current Medication List Current Medications: Active Medications Acetaminophen (Tylenol -) 325 mg PO Q6H PRN PRN Reason: PAIN Al Hydroxide/Mg Hydroxide (Mylanta Oral Suspension -) 30 ml PO BID PRN PRN Reason: DYSPEPSIA Albuterol/Ipratropium (Duoneb -) 1 amp NEB QID PRN PRN Reason: WHEEZING Ascorbic Acid (Vitamin C -) 250 mg PO DAILY [facility] Last Admin: 06/18/18 10:29 Dose: 250 mg Atorvastatin Calcium (Lipitor -) 40 mg PO HS [facility] Last Admin: 06/18/18 21:16 Dose: 40 mg Calcium Carbonate/Cholecalciferol (Os-Antwan 500+D -) 1 tab PO DAILY [facility] Last Admin: 06/18/18 10:19 Dose: 1 tab Cholecalciferol (Vitamin D3 -) 400 unit PO DAILY [facility] Last Admin: 06/18/18 10:18 Dose: 400 unit Citalopram Hydrobromide (Celexa -) 40 mg PO DAILY [facility] Last Admin: 06/18/18 10:18 Dose: 40 mg Divalproex Sodium (Depakote -) 250 mg PO DAILY [facility] Last Admin: 06/18/18 11:30 Dose: 250 mg Docusate Sodium (Colace -) 300 mg PO HS [facility] Last Admin: 06/18/18 21:15 Dose: 300 mg Isosorbide Mononitrate (Imdur -) 30 mg PO DAILY [facility] Last Admin: 06/18/18 10:18 Dose: 30 mg Levetiracetam (Keppra -) 750 mg PO DAILY [facility] Last Admin: 06/18/18 10:17 Dose: 750 mg Metoprolol Succinate (Toprol Xl -) 25 mg PO DAILY [facility] Last Admin: 06/18/18 10:18 Dose: 25 mg Multivitamins/Minerals/Vitamin C (Tab-A-Vit -) 1 tab PO DAILY [facility] Last Admin: 06/18/18 10:18 Dose: 1 tab Pantoprazole Sodium (Protonix -) 40 mg PO BID [facility] Last Admin: 06/18/18 21:16 Dose: 40 mg Ramipril (Altace -) 5 mg PO DAILY [facility] Last Admin: 11/17/18 10:19 Dose: 5 mg Risperidone (Risperdal -) 1 mg PO BID [facility] Last Admin: 06/18/18 21:16 Dose: 1 mg Rivastigmine Tartrate (Exelon (Nf) -) 4.5 mg PO DAILY [facility] Last Admin: 06/18/18 10:20 Dose: 4.5 mg Senna (Senna -) 1 tab PO HS [facility] Last Admin: 06/18/18 21:16 Dose: 1 tab - Objective Vital Signs: Vital Signs Temperature 98.2 F 06/19/18 05:34 Pulse Rate 91 H 06/19/18 05:34 Respiratory Rate 20 06/19/18 05:34 Blood Pressure 136/49 L 06/19/18 05:34 O2 Sat by Pulse Oximetry (%) 96 06/18/18 21:00 Constitutional: Yes: No Distress, Calm Eyes: Yes: Conjunctiva Clear HENT: Yes: Atraumatic Neck: Yes: Supple Cardiovascular: Yes: Regular Rate and Rhythm Respiratory: Yes: CTA Bilaterally Gastrointestinal: Yes: Soft. No: Distention Genitourinary: No: Hematuria Musculoskeletal: No: Joint Stiffness, Joint Swelling Extremities: No: Cold, Cool, Cyanosis Edema: No Integumentary: No: Rash, Venous Stasis Changes Neurological: Yes: Alert. No: Oriented ...Motor Strength: WNL (does not follow any commands but moves U/LE bilat spontaneously) Psychiatric: Yes: Alert. No: Oriented, Agitated Labs: CBC, BMP 06/19/18 06:00 06/19/18 06:00 INR, PTT INR 0.92 (0.83-1.09) 06/17/18 13:58 - ....Imaging Other: Report Reviewed Assessment/Plan 88 y/o female presenting to [facility] ER via ambulance from [facility] with UGI bleed Known history of PUD and Barrretts Esophagus. Severe dementia as baseline and unable to provide any information. s/p recent PNA and UTIs. admit; IVF, PPIs advance diet as tolerated GI f/u f/u labs check chest CT results r/p CHF / PNA; swallow eval further w/u and management per GI d/w pt and staff, if stable will transfer to [place] on wednesday pfx
[2018-06-19] MEDS ORDERED: PT OWN MED DRAWER 7, Y5N ONE ×2 (10:15→22:38)
[2018-06-19] MEDS: CITALOPRAM HYDROBROMIDE 20 MG TABLET (FP) PO SCH (10:16)
[2018-06-19] MEDS: ASCORBIC ACID 250 MG TABLET (FP) PO SCH (10:16)
[2018-06-19] MEDS: levETIRAcetam 250 MG TABLET (FP) PO SCH (10:16)
[2018-06-19] MEDS: risperiDONE 1 MG TABLET (FP) PO SCH ×2 (10:16→22:40)
[2018-06-19] MEDS: CALCIUM 500MG/VIT-D 200 UNITS COMBO TABLET (FP) PO SCH (10:16)
[2018-06-19] MEDS: DIVALPROEX SODIUM 250 MG TABLET E.C. PO SCH (10:16)
[2018-06-19] MEDS: RAMIPRIL 5 MG CAPSULE (FP) PO SCH (10:16)
[2018-06-19] MEDS: metoPROLOL SUCCINATE 25 MG TAB.SR.24H (FP) PO SCH (10:17)
[2018-06-19] MEDS: RIVASTIGMINE TARTRATE 1.5 MG CAPSULE PO SCH (10:17)
[2018-06-19] MEDS: CHOLECALCIFEROL (VITAMIN D3) 400 UNIT TABLET (FP) PO SCH (10:17)
[2018-06-19] MEDS: PANTOPRAZOLE 40 MG TABLET (FP) PO SCH ×2 (10:17→22:40)
[2018-06-19] MEDS: MULTIVITAMINS (DAILY MVI) TABLET (FP) PO SCH (10:17)
[2018-06-19] MEDS: ISOSORBIDE MONONITRATE 30 MG TAB.SR.24H (FP) PO SCH (11:35)
--- NOTE | 2018-06-19 11:37 | PN ---
Progress Note (short form) - Note Progress Note: Pt awake, alert but confused. Not eating much but no sign of aspiration, no vomiting either. Agree with plan for discharge.
[2018-06-19] MEDS: DOCUSATE SODIUM 100 MG CAPSULE (FP) PO SCH (22:12)
[2018-06-19] MEDS: SENNOSIDES 8.6MG TABLET (FP) PO SCH (22:12)
[2018-06-19] MEDS: ATORVASTATIN CA 40 MG TABLET (FP) PO SCH (22:40)
--- NOTE | 2018-06-20 07:02 | DS ---
Physical Examination Vital Signs: Vital Signs Temperature 97.8 F 06/19/18 22:00 Pulse Rate 89 06/19/18 22:00 Respiratory Rate 20 06/19/18 22:00 Blood Pressure 126/86 06/19/18 22:00 O2 Sat by Pulse Oximetry (%) 100 06/19/18 21:00 Findings/Remarks: awake alert in good spirits ate OK no cough no fever no vomiting no bleeding; d/ w GI OK to [place] and f/u in [place]; not seen by swallow eval r/o aspiration yet in here but it can be done in NH; chest CT results d/w daughter at bedside; daughter said pt had PNA recently in [place] and was on ATB, no signs of infection currently; d/w daughter head elevation , purree or soft / chopped diet; daughter said she usually eats regular food no coughing; f/u CXR in NH and labs in 1-2 weeks. d/w staff Constitutional: Yes: No Distress, Calm Eyes: Yes: Conjunctiva Clear HENT: Yes: Atraumatic Neck: Yes: Supple Cardiovascular: Yes: Regular Rate and Rhythm Respiratory: Yes: CTA Bilaterally Gastrointestinal: Yes: Soft Renal/: No: CVA Tenderness - Left, CVA Tenderness - Right Musculoskeletal: No: Joint Stiffness, Joint Swelling Extremities: No: Cold, Cool, Cyanosis Edema: No Integumentary: No: Rash, Venous Stasis Changes Neurological: Yes: Alert. No: Oriented ...Motor Strength: WNL Psychiatric: Yes: Alert. No: Oriented, Agitated Labs: CBC, BMP 06/19/18 06:00 06/19/18 06:00 Discharge Summary Reason For Visit: DEMENTIA WITH BEHAVIORAL DISTURBANCE,PEPTIC ULCER, Current Active Problems Barretts esophagus (Acute) Dementia (Acute) Hematemesis/vomiting blood (Acute) Peptic ulcer disease (Acute) Procedures: Principal: admitted with hematemesis x 2 Other Procedures: seen by GI; stable H&H no recurrent bleed; off anticoagulation ; Hospital Course: stable DC back to NH f/u as advised. Condition: Stable - Instructions Diet, Activity, Other Instructions: f/u PCP and labs CBC CMP in 1-2 weeks; CXR f/u in 1-2 weeks. GI and cardiology f/u; psychiatry f/u; falls decubs DVT aspiration prophylaxis; swallow eval in NH r/o aspiration. Referrals: Juan Pa MD [Primary Care Provider] - Disposition: HALFWAY FACILITY - Home Medications Comprehensive Discharge Medication List: Ambulatory Orders Acetaminophen 325 mg PO PRN 08/22/17 Atorvastatin Ca [Lipitor] 40 mg PO HS 08/22/17 Calcium Carbonate/Vitamin D3 [Calcium 500-Vit D3 400 Tablet] 1 each PO DAILY Citalopram Hydrobromide [Celexa -] 40 mg PO DAILY 08/22/17 Divalproex Sodium 250 mg PO DAILY 08/22/17 Isosorbide Mononitrate [Isosorbide Mononitrate ER] 30 mg PO DAILY 08/22/17 Levetiracetam [Keppra] 750 mg PO DAILY 08/22/17 Multivitamin [Multiple Vitamins] 1 each PO DAILY 08/22/17 Rivastigmine Tartrate [Rivastigmine] 4.5 mg PO DAILY 08/22/17 Pantoprazole Sodium [Protonix -] 40 mg PO BID tablet.ec 08/25/17 Ramipril [Altace] 5 mg PO DAILY capsule 08/25/17 Albuterol 2.5/Ipratropium 0.5 [Duoneb -] 1 neb IH QID 06/17/18 Ascorbic Acid [Vitamin C] 250 mg PO DAILY 06/17/18 Cholecalciferol (Vitamin D3) [Vitamin D3] 400 unit PO DAILY 06/17/18 Docusate Sodium 300 mg PO HS 06/17/18 Mag Hydrox/Al Hydrox/Simeth [Mylanta Oral Suspension -] 30 ml PO BID 06/17/18 Magnesium Hydrox 2400MG/30Ml [Milk of Magnesia -] 30 ml PO BID 06/17/18 Menthol [Bengay Ultra Strength] 1 each TP DAILY 06/17/18 Methenamine Hippurate [Hiprex [Nf] -] 1 gm PO DAILY 06/17/18 Metoprolol Succinate [Toprol Xl] 25 mg PO DAILY 06/17/18 Protein Hydrolysate,Milk [Liquid Protein Fortifier] 54 ml PO BID 06/17/18 Risperidone [Risperdal -] 1 mg PO BID 06/17/18 Sennosides [Senna] 8.6 mg PO HS 06/17/18
[2018-06-20] MEDS ORDERED: PT OWN MED DRAWER 7, Y5N ONE (10:05)
[2018-06-20] MEDS: DIVALPROEX SODIUM 250 MG TABLET E.C. PO SCH (10:08)
[2018-06-20] MEDS: RAMIPRIL 5 MG CAPSULE (FP) PO SCH (10:08)
[2018-06-20] MEDS: CITALOPRAM HYDROBROMIDE 20 MG TABLET (FP) PO SCH (10:08)
[2018-06-20] MEDS: ISOSORBIDE MONONITRATE 30 MG TAB.SR.24H (FP) PO SCH (10:08)
[2018-06-20] MEDS: RIVASTIGMINE TARTRATE 1.5 MG CAPSULE PO SCH (10:09)
[2018-06-20] MEDS: MULTIVITAMINS (DAILY MVI) TABLET (FP) PO SCH (10:09)
[2018-06-20] MEDS: PANTOPRAZOLE 40 MG TABLET (FP) PO SCH (10:09)
[2018-06-20] MEDS: risperiDONE 1 MG TABLET (FP) PO SCH (10:09)
[2018-06-20] MEDS: levETIRAcetam 250 MG TABLET (FP) PO SCH (10:09)
[2018-06-20] MEDS: CALCIUM 500MG/VIT-D 200 UNITS COMBO TABLET (FP) PO SCH (10:09)
[2018-06-20] MEDS: metoPROLOL SUCCINATE 25 MG TAB.SR.24H (FP) PO SCH (10:09)
[2018-06-20] MEDS: CHOLECALCIFEROL (VITAMIN D3) 400 UNIT TABLET (FP) PO SCH (10:09)
[2018-06-20] MEDS: ASCORBIC ACID 250 MG TABLET (FP) PO SCH (10:09)
--- NOTE | 2018-06-20 15:00 | CONSULT ---
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: Yes: CVA, Dementia (with aggitation) Cardiovascular: Yes: AFIB, HTN, Hyperlipdemia Gastrointestinal: Yes: Peptic Ulcer Disease Endocrine: Yes: Hypothyroidism - Past Surgical History Past Surgical History: Yes: Cholecystectomy - Smoking History Smoking history: Never smoked Have you smoked in the past 12 months: No Aproximately how many cigarettes per day: 0 If you are a former smoker, when did you quit?: 1975 - Alcohol/Substance Use Hx Alcohol Use: No History of Substance Use: reports: None - Social History ADL: Support Services History of Recent Travel: No History - Admission Reason For Visit: DEMENTIA WITH BEHAVIORAL DISTURBANCE,PEPTIC ULCER, - Hearing Hearing: Normal Speech Evaluation - Communication Primary Language: NAMIBIAN Communication: Yes: Within Normal Limits, Hearing Deficit Oral Expression Ability: Yes: Mild Impairment - Speech Production Apraxia: No Able to Make Needs Known: Yes: WNL Intelligibility: Yes: WNL - Speech Characteristics Voice Loudness: Normal Voice Pitch: Yes: Normal Voice Phonatory-based Quality: Yes: Normal Speech Pattern: Normal Nasal Resonance: Normal Articulation: Yes: Precise Rate of Speech: Intact Voice Comment: Vocal quality is WFL at this time - Language/Auditory Comprehension Follows: Yes: 1 Stage Simple Commands (WFL), 2 Stage Simple Commands (WFL) Observation: Able to respond to yes/no queries: Yes, Yes/No Confusion: No, Comprehends Conversational Speech: Yes, Benefits from Slow Speech: Yes, Benefits from Repetiton: No, Benefits from Increased Volume of Speech: Yes - Language/Verbal Expression Able to Respond to Simple Queries: Yes: WNL Able to Communicate Wants and Needs: Yes: WNL Functional Communication Status: Yes: WNL Aware of Errors: Yes Attempts to Correct Errors: Yes Use of Gestures: No Written Expression: NOt examined Oral Expression: WFL Reading Comprehension: NOt examined Calculations: NOt examined Attention: Yes: Intact - 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: Mildly Impaired Short Term Memory: Yes: WNL - Swallow Evaluation/Bedside Assessment Current Nutritional Intake: Soft, Thin Liquids Oral Secretions: Yes: WFL Tracheostomy Present: No Patient on Ventilator: No Dentition: Yes: Dental Appliance Upper, Dental Appliance Lower Facial Symmetry at Rest: Symmetrical Facial Symmetry on Retraction: Symmetrical Facial Movement: Controlled Sensation: Normal Facial Comment: WFL for speech and swallowing purposes Jaw Position: Closed at Rest Against Resistance Opening: Normal Against Resistance Closing: Normal Pucker Lips: Normal Smile: Normal Lips, Comment: WFL for speech and swallowing purposes Lingual Movement: Normal Lingual Speed of Movement: Normal Lingual Movement Strgth Against Opposition: Normal Lingual Movement Characteristics: Normal Lingual Comment: WFL for speech and swallowing purposes Soft Palate Description: Normal Color, Normal Arch Gag Reflex: Strong Bite Reflex: Present Velopharyngeal Movement: Normal Laryngeal Elevation: WFL Laryngeal Movement: Able to Palpate Needs Assistance: Yes Rate of Intake: WFL Bolus Size: WFL Labial Seal: WFL Chewing: WFL Oral Prep Time: WFL A-P Transit: WFL Timing of Swallow: WFL Coughing/Throat Clear: No Change in Voice: No Other Findings/Remarks: 88 yo female seen for swallow eval to r/o dysphagia. MANAGER OUTREACH present for is session. Pt is verbal A&Ox2 cooperative. Admitted for Vomiting? Vocal quality is WNL and adequate oral motor exam and airway protection. Current diet is soft solids with thin liquids. Pt given po trials of puree, and soft solids with minimal assistance revealed good acceptance, adequate mastication, bolus formation and transport. Pharyngeal swallow appears is mildly delayed 2-3 seconds with no cough or changes in voicing and respiration. Thin liquid trials were unremarkable for coughing or changes in voicing at this time. Recommendations - Speech Evaluation, Impression/Plan Impression: Pt present with mild pharyngeal phase dysphagia for pureed, soft solids thin liquids with no s/s of aspiration at this time. Speech and language are WFL. Lot Associate Goals: tolerate the least restrictive diet w/o s/s of aspiration. Short Term Goals: tolerate pureed, soft solids, thin liquids without s/s of aspiration - Disposition Discharge to: Adult Residence - Dysphagia Impressions/Plan Swallowing Skills: Impaired Dysphagia Impressions: Minimal Impairment, Risk of Aspiration *Silent aspiration: cannot be R/O at bedside Dysphagia Treatment Plan: Small Bites, Safe Rate, 1/2 tsp. at a time, Elevate HOB during feed Dysphagia Evaluation Summary: Continue current diet of soft solids with thi liquids as tolerated. Observe stand aspiration precautions. Slow rate. Alternate liquids for every 2-3 of solids for liquid washdown. Results given verbally to meteorologist in charge and to pcp via chart. GLOBAL PROCESS OWNER to follow up as needed. - Recommendations Diet Consistency: Dysphagia Whole, 1 - 2 Soft Items Medication Administration: Crushed with applesauce Liquids: Thin Liquids
[2018-06-20 15:31] VITALS: BP 110/64; PULSE 87; TEMP 97.3
--- NOTE | 2018-06-20 23:47 | EKG ---
Test Reason : Blood Pressure : / mmHG Vent. Rate : 094 BPM Atrial Rate : 094 BPM P-R Int : 166 ms QRS Dur : 148 ms QT Int : 420 ms P-R-T Axes : 038 017 011 degrees QTc Int : 525 ms NORMAL SINUS RHYTHM POSSIBLE LEFT ATRIAL ENLARGEMENT RIGHT BUNDLE BRANCH BLOCK POSSIBLE INFERIOR INFARCT (CITED ON OR BEFORE 06-AUG-2016) ABNORMAL ECG WHEN COMPARED WITH ECG OF 22-AUG-2017 03:34, NO SIGNIFICANT CHANGE WAS FOUND Confirmed by MAXIMILIANO PEREZ MD ([id number]) on 06/20/2018 11:47:03 PM Referred By: Confirmed By:MAXIMILIANO PEREZ MD
== END 2018-06-20 17:05 | DRG 377 ==
LOC: JER 12:59 → JERBED 15:31 → J5S 17:40
PROVIDERS: ADMIT Specialist; ATTEND Specialist
DX: K92.0 Hematemesis (principal); R53.2 Functional quadriplegia; F03.91 Unspecified dementia, unspecified severity, with behavioral disturbance; I48.91 Unspecified atrial fibrillation; I10 Essential (primary) hypertension; E03.9 Hypothyroidism, unspecified; K27.9 Peptic ulcer, site unspecified, unspecified as acute or chronic, without hemorrhage or perforation; K22.719 Barrett's esophagus with dysplasia, unspecified
CPT/HCPCS: 36415; 71045-TC-FY; 71250-TC; 80048; 80053; 82272; 85025; 85610; 85730; 86850; 86900; 86901; 93005; 93010; 99283-25; J2794; J7030